=== PATIENT | female | born 1965 | race Hispanic/Latino ===

== ENCOUNTER → 2018-06-07 | Day surgery (SDC) | payer OTHER ==
--- NOTE | 2018-05-28 10:46 | Diagnostic Imaging Report ---
PROCEDURE: X-RAY CHEST, TWO VIEWS COMPARISON: None. INDICATIONS: PRE-OPERATIVE CHEST X-RAY FOR HERNIA SURGERY FINDINGS: The lungs are well-inflated. No focal airspace consolidation, pleural effusion, or pneumothorax. Cardiomediastinal contour and pulmonary vasculature are within normal limits. No acute osseous abnormality. CONCLUSION: No acute thoracic abnormality. Dictated by: James Joe M.D. on 05/28/2018 at 10:51 Electronically approved by: James Joe M.D. on 05/28/2018 at 10:51
[2018-05-28 10:55] LABS: BASOPHILS % 0.3 % (0.0-1.0); EOSINOPHILS # (AUTO) 0.1 (0.0-0.4); EOSINOPHILS % 1.2 % (0.0-6.0); HEMATOCRIT 40.8 % (34.2-44.1); LYMPHOCYTES # (AUTO) 1.5 (1.0-3.2); LYMPHOCYTES % 20.7 % (18.0-39.1); MEAN CORPUSCULAR HEMOGLOBIN 31.9 pg (28-32); MEAN CORPUSCULAR HGB CONC 34.3 g/dL (31-35); MEAN CORPUSCULAR VOLUME 92.9 fL (81-99); MONOCYTES # (AUTO) 0.6 (0.2-0.8); MONOCYTES % 7.5 % (4.4-11.3); NEUTROPHILS # (AUTO) 5.2 (2.1-6.9); NEUTROPHILS % 70.2 % (38.7-80.0); PLATELET COUNT 197 x10e3/uL (140-360); RED BLOOD COUNT 4.39 x10e6/uL (3.6-5.1); RED CELL DISTRIBUTION WIDTH 11.9 % (11.7-14.4)
[2018-05-28 11:26] LABS: ANION GAP 10.8 mmol/L (8-16); BLOOD UREA NITROGEN 18 mg/dL (7-26); BUN/CREATININE RATIO 23 (6-25); CALCIUM 9.5 mg/dL (8.4-10.2); CARBON DIOXIDE 27 mmol/L (22-29); CHLORIDE 107 mmol/L (98-107); CREATININE, SERUM 0.77 mg/dL (0.57-1.11); EST GLOMERULAR FILTRATION RATE > 60 ML/MIN (60-); GLUCOSE 101 mg/dL (74-118); POTASSIUM 3.8 mmol/L (3.5-5.1); SODIUM 141 mmol/L (136-145)
[~2018-06-07] MED LIST: ACETAMINOPHEN 1000 MG/100 ML 100 ML IV ONE; ALLEGRA ALLERG180 MG PO; BENADRYL25 M1; BUPIVACAINE 0.25%/EPI 30ML SDV INJ ONE; DESFLURANE 240 ML BTL INH ONE; DEXAMETHASONE SOD PHOS INJ 4 MG/ML VIAL ONE; FENTANYL CITRATE/PF 100MCG/2 ML INJ ONE; GLYCOPYRROLATE INJ 1MG/ 5 ML SYR ONE; LIDOCAINE HCL 2% LOCAL INJ 5 ML SDV VIAL INJ ONE; MIDAZOLAM HCL 2 MG/2 ML VIAL ONE; NEOSTIGMINE 5 MG/5ML SYR ONE; PREVACID15 M1 PO; PROPOFOL IV EMULSION 10 MG/ML 20 ML VIAL ONE; ROCURONIUM BROMIDE 10 MG/ML 5ML VIAL ONE; Synthroid PO; TURMERIC1 GM PO; XANAX0.5 MG PO
--- NOTE | 2018-06-07 10:22 | Operative Report ---
DATE OF PROCEDURE: June 07, 2018 PREOPERATIVE DIAGNOSIS: Ventral hernia. POSTOPERATIVE DIAGNOSIS: Ventral hernia. OPERATION PERFORMED: Repair of ventral hernia with Ventralex patch. ANESTHESIA: General. COMPLICATIONS: None. ESTIMATED BLOOD LOSS: Minimal. DESCRIPTION OF PROCEDURE: With the patient lying in bed in the supine position under good general anesthesia, the abdomen was prepped with Betadine solution and draped in the usual manner. A semilunar subumbilical incision was made. It was carried down through the subcutaneous tissue, and immediately hernia sac was encountered. This was from the surrounding structures and it extended next to the umbilicus and including the umbilicus. The umbilicus was then detached from the hernia sac, and the fascia was dissected all the way around. The hernia defect was then from the fascia and reduced back to the intra-abdominal cavity. A pocket was then created in the preperitoneal space without any difficulty, and Ventralex patch was then placed in the preperitoneal space and deployed without any difficulty. The defect was then closed transversely using interrupted sutures of #0 Ethibond anchoring the mesh on the way out. This gave us a satisfactory closure without any tension. The whole area was then thoroughly irrigated. Perfect hemostasis was ascertained. Fascia was then infiltrated with 0.25% Marcaine. The umbilicus was then tacked back down to the midline with 3-0 Vicryl. The subcutaneous tissue was approximated with 3-0 Vicryl and the skin was closed with subcuticular 5-0 Vicryl. Benzoin, Steri-Strips, and dressings were applied. The sponge, lap, and needle count was correct. The patient tolerated the procedure well and returned to the recovery room in stable condition. Job#: [id number]
== END | disposition home or self-care (01) ==
LOC: OR 06:08
PROVIDERS: ATTEND Surgery
DX: K43.9 Ventral hernia without obstruction or gangrene (principal); I10 Essential (primary) hypertension; M06.9 Rheumatoid arthritis, unspecified; E03.9 Hypothyroidism, unspecified; K21.9 Gastro-esophageal reflux disease without esophagitis; K58.9 Irritable bowel syndrome, unspecified; K44.9 Diaphragmatic hernia without obstruction or gangrene; K57.90 Diverticulosis of intestine, part unspecified, without perforation or abscess without bleeding; N39.0 Urinary tract infection, site not specified; Z88.0 Allergy status to penicillin; Z88.2 Allergy status to sulfonamides; Z88.6 Allergy status to analgesic agent; Z91.041 Radiographic dye allergy status; Z87.891 Personal history of nicotine dependence; Z01.810 Encounter for preprocedural cardiovascular examination; Z01.812 Encounter for preprocedural laboratory examination; Z01.818 Encounter for other preprocedural examination
CPT/HCPCS: 36415; 49560; 49568; 71046; 80048; 85025; 93005; C1781; J1100; J2001; J2250; J3490

== ENCOUNTER → 2019-01-25 | Outpatient (CLI) | payer OTHER ==
[~2019-01-25] MED LIST changes: -ACETAMINOPHEN 1000 MG/100 ML 100 ML IV ONE; -BUPIVACAINE 0.25%/EPI 30ML SDV INJ ONE; -DESFLURANE 240 ML BTL INH ONE; -DEXAMETHASONE SOD PHOS INJ 4 MG/ML VIAL ONE; -FENTANYL CITRATE/PF 100MCG/2 ML INJ ONE; -GLYCOPYRROLATE INJ 1MG/ 5 ML SYR ONE; -LIDOCAINE HCL 2% LOCAL INJ 5 ML SDV VIAL INJ ONE; -MIDAZOLAM HCL 2 MG/2 ML VIAL ONE; -NEOSTIGMINE 5 MG/5ML SYR ONE; -PROPOFOL IV EMULSION 10 MG/ML 20 ML VIAL ONE; -ROCURONIUM BROMIDE 10 MG/ML 5ML VIAL ONE
--- NOTE | 2019-01-25 15:34 | Diagnostic Imaging Report ---
EXAMINATION: PA and lateral views of the chest. COMPARISON: None CLINICAL HISTORY: Pneumonia follow-up DISCUSSION: Lungs are well-inflated. No focal consolidation, pleural effusion, or pneumothorax. Cardiomediastinal contour and pulmonary vasculature are within normal limits. No acute osseous abnormality. IMPRESSION: No acute cardiopulmonary abnormalities. No consolidative pneumonia. Signed by: Dr. James Joe M.D. on 01/25/2019 3:31 PM
== END ==
LOC: RAD 14:16
PROVIDERS: ATTEND Family Medicine
DX: Z09 Encounter for follow-up examination after completed treatment for conditions other than malignant neoplasm (principal); J18.9 Pneumonia, unspecified organism
CPT/HCPCS: 71046

== ENCOUNTER 2019-02-21 00:43 | Emergency (ER) | payer OTHER ==
[~2019-02-21] VITALS: Ht 157.5 cm; Wt 74.8 kg
--- OUTSIDE RECORDS SUMMARY | 2019-02-21 00:47 | XMS REPORT | Continuity of Care Document ---
Author Author [facility] Interface Address Unknown Phone Unavailable Problems Problem Status Onset Date Classification Date Reported Comments Source Long-term use of high-risk medication Active Problem 10/01/2017 Wiliam Dawson Vitamin D deficiency, unspecified Active Problem 10/01/2017 Wiliam Dawson Rheumatoid arthritis with rheumatoid factor Active Problem 10/01/2017 Wiliam Dawson Polyarthritis Active Diagnosis 10/01/2017 Wiliam Dawson Vitamin D deficiency Active Diagnosis 10/01/2017 Wiliam Dawson Medications Medication Details Route Status Patient Instructions Ordering Provider Order Date Source Tylenol not defined NA Active 500 once a day Paigea Wiliam Dawson Alprazolam 1 tablet NA Active 5 mg once a day Rani Wiliam Dawson Vitamin D (Ergocalciferol) 1 capsule Orally Active 18422 UNIT Orally Faklynna Wiliam Dawson Linda as directed Orally Active 60 MG Orally Faklynna Wiliam Dawson Meloxicam 1 tablet Orally Active 15 MG Orally Once a day Paigea Wiliam Dawson Prevacid 1 capsule before a meal Orally Active 15 MG Orally Once a day Faklynna Wiliam Dawson Synthroid 1 tablet on an empty stomach in the morning Orally Active 137 MCG Orally Once a day Paigea Wiliam Dawson Benadryl not defined NA Active once a day Rani Wiliam Dawson Allergies, Adverse Reactions, Alerts Substance Category Reaction Severity Reaction type Status Date Reported Comments Source sulfa Adverse Reaction rash Adverse Reaction Active 09/29/2017 Wiliam Dawson penicillin Adverse Reaction rash Adverse Reaction Active 09/29/2017 Wiliam Dawson Iodine Adverse Reaction rash Adverse Reaction Active 09/29/2017 Wiliam Dawson Hydroxychloroquine Adverse Reaction Blurry vision Adverse Reaction Active 09/29/2017 Wiliam Dawson diclofenac Adverse Reaction weakness Adverse Reaction Active 09/29/2017 Wiliam Dawson Daypro Adverse Reaction hypertension Adverse Reaction Active 09/29/2017 Wiliam Dawson Immunizations Immunization Date Given Site Status Last Updated Comments Source Results Order Name Results Value Reference Range Date Interpretation Comments Source Vital Signs Vital Sign Value Date Comments Source Systolic (mm Hg) 118 09/29/2017 Wiliam Dawson Weight 148 09/29/2017 Wiliam Dawson Height 63 09/29/2017 Wiliam Dawson Temperature Oral (F) 98.8 F 09/29/2017 Wiliam Dawson Heart Rate 80 09/29/2017 Wiliam Dawson Diastolic (mm Hg) 80 09/29/2017 Wiliam Dawson Encounters Location Location Details Encounter Type Encounter Number Reason For Visit Attending Provider ADM Date DC Date Status Source Procedures Procedure Code Date Perfomer Comments Source
--- NOTE | 2019-02-21 02:10 | Diagnostic Imaging Report ---
EXAMINATION: CHEST 2 VIEWS INDICATION: Productive cough cough, PNA 4wks ago COMPARISON: 01/25/19. FINDINGS: TUBES and LINES: None. LUNGS: Lungs are well inflated. Lungs are clear. There is no evidence of pneumonia or pulmonary edema. PLEURA: No pleural effusion or pneumothorax. HEART AND MEDIASTINUM: The cardiomediastinal silhouette is unremarkable. BONES AND SOFT TISSUES: No acute osseous lesion. Soft tissues are unremarkable. UPPER ABDOMEN: No free air under the diaphragm. IMPRESSION: No acute thoracic abnormality. No change compared to 01/25/2019. Signed by: Dr. Little Bowles M.D. on 02/21/2019 2:07 AM
[2019-02-21 02:44] VITALS: BP 139/77
== END 2019-02-21 02:40 | disposition home or self-care (01) ==
LOC: ER 00:43
DX: R06.09 Other forms of dyspnea (principal); E78.5 Hyperlipidemia, unspecified
CPT/HCPCS: 71046; 99282

== ENCOUNTER → 2019-08-01 | Outpatient (CLI) | payer OTHER ==
[~2019-08-01] MED LIST changes: +DIPHENHYDRAMINE HCL INJ 50 MG/ML VIAL ONE; +IOPAMIDOL 370 MG/ML 200 ML INFUS..BTL INJ ONE; +SODIUM CHLORIDE 0.9% 100 ML 100 ML ONE
[2019-08-01 12:06] LABS: BLOOD UREA NITROGEN 24 mg/dL (7-26); BUN/CREATININE RATIO 29 (6-25); CREATININE, SERUM 0.83 mg/dL (0.57-1.11); EST GLOMERULAR FILTRATION RATE > 60 ML/MIN (60-)
--- NOTE | 2019-08-01 14:26 | Diagnostic Imaging Report ---
EXAM: CT Angiogram Chest WITH contrast INDICATION: Chest pain COMPARISON: Chest radiograph of 02/21/2019 TECHNIQUE: Chest was scanned utilizing a multidetector helical scanner from the lung apex through the level of the adrenal glands after administration of IV contrast in arterial phase. Coronal and sagittal reformations were obtained. CT Angiogram protocol was performed. 3D reconstruction was performed and viewed on dedicated workstation. Dose modulation, iterative reconstruction, and/or weight based adjustment of the mA/kV was utilized to reduce the radiation dose to as low as reasonably achievable. IV CONTRAST: 100 mL of Omnipaque 300 RADIATION DOSE: Total DLP: 809.9 mGy*cm COMPLICATIONS: None FINDINGS: VASCULAR FINDINGS: Thoracic aorta: Aortic Annulus: 3.2 cm Sinus of Valsalva: 2.3 cm Ascending Aorta at level of PA: 2.9 cm Mid Arch: 2.6 cm Proximal Descendin.3 cm Mid Descendin.3 cm Distal Descendin.3 cm Aortic hiatus: 2.2 cm. No evidence of aortic dissection. No significant atherosclerotic changes within the thoracic aorta. The main pulmonary artery is not enlarged. No evidence of central pulmonary embolism. LINES/ TUBES: None. LUNGS AND AIRWAYS: The central airways are patent. No focal consolidation or pulmonary edema. Mild bibasilar dependent subsegmental atelectasis. No suspicious pulmonary nodules. PLEURA: No pleural effusion or pneumothorax. HEART AND MEDIASTINUM: The thyroid gland is normal. No supraclavicular, mediastinal, hilar, or axillary lymphadenopathy. The heart is not enlarged. No pericardial effusion. UPPER ABDOMEN: Limited images of the upper abdomen demonstrate no focal abnormality of the partially visualized liver, gallbladder, pancreas, adrenals, upper kidneys, or spleen. BONES/SOFT TISSUES: No acute osseous injury. No suspicious lytic or blastic lesions. No substantial degenerative changes of the visualized spine. IMPRESSION: No aortic dissection or aneurysm. Patent SVC without evidence of narrowing or extrinsic compression to correlate with clinical history/suspicion of SVC syndrome. Signed by: Charlene Epstein MD on 08/01/2019 2:23 PM
== END ==
LOC: CT 11:05
PROVIDERS: ATTEND Internal Medicine Cardiovascular Disease
DX: I87.1 Compression of vein (principal); R07.9 Chest pain, unspecified; R60.9 Edema, unspecified
CPT/HCPCS: 36415; 71275; 82565; 84520; J1200; Q9967

== ENCOUNTER 2020-05-13 17:52 | Emergency (ER) | payer OTHER ==
[~2020-05-13] VITALS: Ht 157.5 cm; Wt 74.8 kg
[~2020-05-13 17:52] MED LIST changes: -DIPHENHYDRAMINE HCL INJ 50 MG/ML VIAL ONE; -IOPAMIDOL 370 MG/ML 200 ML INFUS..BTL INJ ONE; -SODIUM CHLORIDE 0.9% 100 ML 100 ML ONE
--- NOTE | 2020-05-13 18:07 | Emergency Department Note ---
History of Present Illnes History of Present Illness Chief Complaint: Genitourinary History of Present Illness This is a 55 year old female presents with c/o burning with urination for 2 days, denies fever,n/v. Historian: Patient Arrival Mode: Car Onset (how long ago): day(s) (2) Location: none Quality: burning with urintaion Radiation: Reports non-radiation Severity: mild Onset quality: gradual Duration (how long): day(s) (2) Timing of current episode: constant Progression: unchanged Chronicity: new Context: Denies recent illness, Denies recent surgery Relieving factors: none Exacerbating factors: none Associated symptoms: Reports denies other symptoms Past Medical/Family History Physician Review I have reviewed the patient's past medical and family history. Any updates have been documented here. Past Medical History Recent Fever: No Clinical Suspicion of Infectio: Yes New/Unexplained Change in Ment: No Past Medical History: Hyperlipedemia Other Medical History: PNA Past Surgical History: , Hernia Repair Social History Smoking Cessation: Never Smoker Alcohol Use: None Any Illegal Drug Use: No Physically hurt or threatened: No Family History Family history of heart diseas: No Other family history htn Review of Systems Review of Systems Constitutional: Reports no symptoms EENTM: Reports no symptoms Cardiovascular: Reports no symptoms Respiratory: Reports no symptoms Gastrointestinal: Reports no symptoms Genitourinary: Reports as per HPI Musculoskeletal: Reports no symptoms Integumentary: Reports no symptoms Neurological: Reports no symptoms Psychological: Reports no symptoms Endocrine: Reports no symptoms Hematological/Lymphatic: Reports no symptoms Physical Exam Related Data Allergies: Coded Allergies: Penicillins (Verified Allergy, Mild, 05/13/20) Sulfa (Sulfonamide Antibiotics) (Verified Allergy, Mild, 05/13/20) iodine (Verified Allergy, Mild, 05/13/20) hydrocodone (Verified Adverse Reaction, Mild, Anxiety, jitters, 05/13/20) Triage Vital Signs Vital Signs Date Time Temp Pulse Resp B/P (MAP) Pulse Ox O2 Delivery O2 Flow Rate FiO2 05/13/20 17:55 99.0 94 17 178/94 96 Room Air Vital signs reviewed: Yes Physical Exam CONSTITUTIONAL Constitutional: Present well-developed, Present well-nourished HENT HENT: Present normocephalic, Present atraumatic, Present oropharynx clear/moist, Present nose normal HENT L/R: Present left ext ear normal, Present right ext ear normal EYES Eyes: Reports PERRL, Reports conjunctivae normal NECK Neck: Present ROM normal PULMONARY Pulmonary: Present effort normal, Present breath sounds normal CARDIOVASCULAR Cardiovascular: Present regular rhythm, Present heart sounds normal, Present capillary refill normal, Present normal rate GASTROINTESTINAL Abdominal: Present soft, Present nontender, Present bowel sounds normal GENITOURINARY Genitourinary: Present exam deferred SKIN Skin: Present warm, Present dry MUSCULOSKELETAL Musculoskeletal: Present ROM normal NEUROLOGICAL Neurological: Present alert, Present oriented x 3, Present no gross motor or sensory deficits PSYCHOLOGICAL Psychological: Present mood/affect normal, Present judgement normal Results Laboratory Laboratory Laboratory Tests Test 05/13/20 17:59 Urine Color Yellow (YELLOW) Urine Clarity Hazy (CLEAR) Urine pH 5.5 (5 - 7) Urine Specific Anabel 1.015 (1.010-1.025) Urine Protein Negative (NEGATIVE) Urine Glucose (UA) Negative (NEGATIVE) Urine Ketones Negative (NEGATIVE) Urine Blood Small (NEGATIVE) Urine Nitrite Negative (NEGATIVE) Urine Bilirubin Negative (NEGATIVE) Urine Urobilinogen 0.2 mg/dL (0.2 - 1) Urine Leukocyte Esterase Negative (NEGATIVE) Urine RBC 0-5 /HPF (0-5) Urine WBC 0-5 /HPF (0-5) Urine Epithelial Cells Few /LPF (NONE) Urine Bacteria Few /HPF (NONE) Lab results reviewed: Yes Assessment & Plan Medical Decision Making MDM pt with burning with urination ua, urine culture ordered to eval for uti PT DISCHARGED WITH LEVAQUIN 500 MG PO DAILY FOR 10 DAYS. Assessment & Plan Final Impression: (1) Dysuria Depart Disposition: HOME, SELF-CARE Last Vital Signs Date Time Temp Pulse Resp B/P (MAP) Pulse Ox O2 Delivery O2 Flow Rate FiO2 05/13/20 17:55 99.0 94 17 178/94 96 Room Air Home Meds Reported Medications Diphenhydramine Hcl (BENADRYL) 25 Mg Capsule, 50 06/07/18 Turmeric (TURMERIC) 1 Gm Powder, PO DAILY 06/03/18 Fexofenadine Hcl (SOFIA ALLERGY) 180 Mg Tablet, 180 MG PO DAILY 06/03/18 Alprazolam (XANAX) 0.5 Mg Tablet, 0.5 MG PO TID 06/03/18 [Synthroid] No Conflict Check, 137 MCG PO DAILY 06/03/18 Lansoprazole (PREVACID) 15 Mg Tab.rap., 15 MG PO TID 06/03/18 YESSENIA RITTER MD May 13, 2020 18:07
[2020-05-13 18:28] LABS: BILIRUBIN,URINE NEGATIVE (NEGATIVE); CLARITY,URINE HAZY (CLEAR); COLOR,URINE YELLOW (YELLOW); KETONES,URINE NEGATIVE (NEGATIVE); LEUKOCYTE ESTERASE ,URINE NEGATIVE (NEGATIVE); NITRITE,URINE NEGATIVE (NEGATIVE); PROTEIN,URINE DIPSTICK NEGATIVE (NEGATIVE); URINE UROBILINOGEN 0.2 mg/dL (0.2 - 1); WBC,URINE (MAN) 0-5 /HPF (0-5)
[2020-05-13 18:29] LABS: BACTERIA,URINE FEW /HPF; EPITHELIAL CELLS,URINE FEW /LPF; RBC,URINE 0-5 /HPF (0-5)
== END 2020-05-13 19:43 | disposition home or self-care (01) ==
LOC: ER 17:59
DX: R30.0 Dysuria (principal); E78.5 Hyperlipidemia, unspecified; Z87.01 Personal history of pneumonia (recurrent)
CPT/HCPCS: 81001; 87086; 99282

== ENCOUNTER → 2020-06-25 | Outpatient (CLI) | payer OTHER | LOC: RAD 09:46 | PROVIDERS: ATTEND Family Medicine | DX: M79.601 Pain in right arm (principal) | CPT/HCPCS: 93971 ==

== ENCOUNTER 2020-07-10 10:06 | Emergency (ER) | payer OTHER ==
[~2020-07-10] VITALS: Ht 157.5 cm; Wt 74.8 kg
[2020-07-10] MEDS ORDERED: KETOROLAC TROMETHAMINE 30 MG/ML VIAL IV STA (10:19)
[2020-07-10] MEDS ORDERED: SODIUM CHLORIDE 0.9% 1000ML 1,000 ML IV STA (10:19)
[2020-07-10] MEDS ORDERED: ONDANSETRON HCL INJ 2MG/ML 2ML 2 MG/ML VIAL IV STA (10:19)
--- OUTSIDE RECORDS SUMMARY | 2020-07-10 10:36 | XMS REPORT | Continuity of Care Document ---
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 [employer] Unavailable Un available Problems Problem Status Onset Date Classification Date Reported Comments Source Long-term use of high-risk medication Active Problem 07/2020 Wiliam Dawson Vitamin D deficiency, unspecified Active Problem 07/2020 Wiliam Dawson Rheumatoid arthritis with rheumatoid factor Active Diagnosis 02/03/2020 Wiliam Dawson Polyarthritis Active Diagnosis 02/03/2020 Wiliam Dawson Vitamin D deficiency Active Problem 02/03/2020 Wiliam Dawson Rheumatoid factor positive Act benny Diagnosis 0 11/12/2019 Wiliam Dawson Medications Medication Details Route Status Patient Instructions Ordering Provider Order Date Source Alendronate Sodium 1 tablet 30 minutes before the first food, beverage or medicine of the day with plain water Orally Active 70 MG Orally once a week [place] 11/14/2019 Wiliam Dawson Prednisone Taper 3 tablets for 5 days, 2 tablets for 5 days and then 1 tablet for 5 days Orally Active 5mg Orally once a day [place] 09/27/2019 Wiliam Dawson Tylenol not defined NA Active 500 once a day Surya Dawson Alprazolam 1 tablet NA Active 5 mg once a day Surya Dawson Vitamin D (Ergocalciferol) 1 c apsule Orally Active 17867 UNIT Orally Hany Dawson Linda as directed Orally Active 60 MG Orally Once a day [place] Dawson Meloxicam 1 tablet Orally Active 15 MG Orally Once a day Leach Bishop Dawson Prevacid 1 capsule before a me al Orally Active 15 MG Orally Once a day [place] Dawson Synthroid 1 tablet on an empty stomach in the morning Orally Active 137 MCG Orally Once a day Ambjose martin Dawson Benadryl not defined NA Active once a day Fakoya Bishop Dawson Benadryl 2 capsule Orally Active 25 MG Orally once a day [place] Dawson Atorvastatin Calcium 1 tablet Orally Active 10 MG Orally Once a day [place] Dawson Tumeric 1 capsule Orally Active 400 MG Orally Once a da y Surya Dawson Amlodipine Besylate 1 tablet Orally Active 5 MG Orally Once a day [place] Dawson Collagen 2 tablets Orally Active 500 MG Orally once a da y Leach Bishop Dawson Allergies, Adverse Reactions, Alerts Substance Category Reaction Severity Reaction type Status Date Reported Comments Source sulfa Adverse Reaction rash Adverse Reaction Active 10/24/2019 Wiliam Dawson penicillin Adverse Reaction rash Adverse Reaction Active 10/24/2019 Wiliam Dawson Iodine Adverse Reaction rash Adverse Reaction Active 10/24/2019 Wiliam Dawson Hydroxychloroquine Adverse Neli ction Blurry vision Adverse Reaction Active 10/24/2019 Wiliam Dawson diclofenac Adverse Reaction weakness Adverse Reaction Active 10/24/2019 Wiliam Dawson Daypro Adverse Reaction hypertension Adverse Reaction Active 10/24/2019 Wiliam Dawson Immunizations No Data Provided for This Section Results No Data Provided for This Section Pathology Reports No Data Provided for This Section Diagnostic Reports No Data Provided for This Section Consultation Notes No Data Provided for This Section Discharge Summaries No Data Provided for This Section History and Physicals No Data Provided for This Section Vital Signs Vital Sign Value Date Comments Source Weight 172.4 10/24/2019 Wiliam Gloverer Height 63 1 Wiliam Dawson Temperature Oral (F) 99.6 F 10/24/2019 Wiliam Dawson Heart Rate 80 10/24/2019 Wiliam Dawson Diastolic (mm Hg) 80 10/24/2019 Wiliam Dawson Systolic (mm Hg) 122 10/24/2019 Wiliam Gloverer Weight 169.4 09/27/2019 Wiliam Dawson Height 63 1 11/28/2018 Wiliam Dawson Temperature Oral (F) 98.9 F 09/27/2019 Wiliam Dawson Heart Rate 84 09/27/2019 Wiliam Dawson Diastolic (mm Hg) 90 09/27/2019 Wiliam Dawson Systolic (mm Hg) 136 09/27/2019 Wiliam Dawson Systolic (mm Hg) 118 09/29/2017 Wiliam Dawson Weight 148 09/29/2017 Wiliam Dawson Height 63 1 11/30/2016 Wiliam Dawson Temperature Oral (F) 98.8 F 09/29/2017 Wiliam Dawson Heart Rate 80 09/29/2017 Wiliam Dawson Diastolic (mm Hg) 80 09/29/2017 Wiliam Dawson Encounters No Data Provided for This Section Procedures No Data Provided for This Section Assessment and Plan No Data Provided for This Section Plan of Care No Data Provided for This Section Social History No Data Provided for This Section Family History No Data Provided for This Section Advance Directives No Data Provided for This Section Functional Status No Data Provided for This Section
--- OUTSIDE RECORDS SUMMARY | 2020-07-10 10:36 | XMS REPORT | Continuity of Care Document ---
Author Author [facility] t Organization [facility] Address [address] [place] [address] Phone Unavailable Care Team Providers Care Body And Frame Technician Name Role Phone CAROLE BLUNT PCP Blu ORLANDO Attphys Unavailable Mike RITTER Attphys Unavailable CAROLE BLUNT Attphys Unavailable Mike PEREA Attphyashley Unavailable Payers Payer Name Policy Type Policy Number Effective Date Expiration Date Ashley Mathew Pos [id number] 2009 00:00:00 [facility] Problems Condition Name Condition Details Condition Category Status Onset Date Resolution Date Last Treatment Date Treating Clinician Comments Source Dysuria Problem Active [facility] Long-term use of high-risk medication Long-term use of high-risk medication Active Problem 02/03/2020 Wilaim Dawson Problem Active 2020-02-03 02:56:22 [place] Vitamin D deficiency, unspecified Vitamin D deficiency, unspecified Active Problem 02/03/2020 Wiliam Dawson Problem Active 2020-02-03 02:56:22 [place] Rheumatoid arthritis with rheumatoid factor Rheumatoid arthritis with rheumatoid factor Active Diagnosis 02/03/2020 Wiliam Dawson Diagnosis Active 2020-02-03 02:56:22 [facility] Polyarthritis Poly arthritis Active Diagnosis 02/03/2020 Wiliam Dawson Diagnosis Active 2020-02-03 02:56:22 [facility] Rheumatoid factor positive Rhe umatoid factor positive Active Diagnosis 11/12/2019 Wiliam Dawson Diagnosis Active 2019-11-12 03:47:31 [facility] Allergies, Adverse Reactions, Alerts Allergy Name Allergy Type Status Severity Reaction(s) Onset Date Inacti ve Date Treating Clinician Comments Source Penicillin Allergy to substance Active Mild 2020-05-13 00:00:00 [facility] Sulfa (Sulfonamide Antibiotics) Allergy to substance Active Mild 2020-05-13 00:00:00 [facility] Iodine Allergy to substance Active Mild 2020-05-13 00:00:00 [facility] Hydrocodone Propensity to adverse reactions Active Mild radha Gill 2020-05-13 00:00:00 [facility] Iodinated Contrast Media DA Active ID 2020-03-26 00:00:00 [facility] Penicillins DA Active ID 2020-03-26 00:00:00 [facility] Sulfa (Sulfonamide Antibiotics) DA Active ID 2020-03-26 00 :00:00 [facility] Iodinated Contrast Media DA Active ID 2020-03-22 00:00:00 [facility] Penicillins DA Active ID 2020-03-22 00:00:00 [facility] Sulfa (Sulfonamide Antibiotics) DA Active ID 2020-03-22 00 :00:00 [facility] Iodine Iodine Active rash 2019-10-24 00:00:00 [facility] Daypro Daypro Active hypertension 2019-10-24 00:00:00 [facility] Iodinated Contrast Media DA Active ID 2019-05-16 00:00:00 [facility] Penicillins DA Active ID 2019-01-23 00:00:00 [facility] Sulfa (Sulfonamide Antibiotics) DA Active ID 2019-01-23 00 :00:00 [facility] Penicillins DA Active ID 2018-08-30 00:00:00 [facility] Sulfa (Sulfonamide Antibiotics) DA Active ID 2018-08-30 00 :00:00 [facility] Penicillins DA Active ID 2011-08-20 00:00:00 [facility] Sulfa (Sulfonamide Antibiotics) DA Active ID 2011-08-20 00 :00:00 [facility] Social History Social Habit Start Date Stop Date Quantity Comments Source Sex Assigned At 1965 00:00:00 1965 00:00:00 Female [facility] Medications Ordered Medication Name Filled Medication Name Start Date Stop Da te Current Medication? Ordering Clinician Indication Dosage Frequency Signature (SIG) Comments Components Source Tylenol 2020-02-03 02:56:22 Yes Ray London not defined [facility] Alprazolam 2020-02-03 02:56:22 Yes Ray London 1 tablet [facility] Linda 2020-02-03 02:56:22 Yes Ray London as d irected [facility] Prevacid 2020-02-03 02:56:22 Yes Ray London 1 capsule before a meal [facility] Synthroid 2020-02-03 02:56:22 Yes Ray London 1 tablet on an empty stomach in the morning [facility] Benadryl 2020-02-03 02:56:22 Yes Ray London 2 c apsule [facility] Atorvastatin Calcium 2020-02-03 02:56:22 Yes Ray London 1 tablet [facility] Tumeric 2020-02-03 02:56:22 Yes Ray London 1 ca psule [facility] Amlodipine Besylate 2020-02-03 02:56:22 Yes Ray London 1 tablet [facility] Alendronate Sodium 2019-11-14 00:00:00 Yes Ray London 1 tablet 30 minutes before the first food, beverage or medicine of the day with plain water [facility] Vitamin D (Ergocalciferol) 2019-11-12 03:47:31 Yes Seng Leach 1 capsule [facility] Meloxicam 2019-11-12 03:47:31 Yes Kandis Leach 1 tablet [facility] Collagen 2019-11-12 03:47:31 Yes Kandis Leach 2 tablets [facility] Prednisone Taper 2019-09-27 00:00:00 Yes Kandis Leach 3 tablets for 5 days, 2 tablets for 5 days and then 1 tablet for 5 days [facility] Benadryl 2017-10-01 03:46:49 Yes Latifmago Fakmeagan no t defined [facility] Alprazolam (Xanax) 0.5 Mg TABLET Alprazolam (Xanax) 0.5 Mg TABLET Yes .5 Three Times A Day [facility] Diphenhydramine Hcl (Benadryl) 25 Mg CAPSULE Diphenhyd ramine Hcl (Benadryl) 25 Mg CAPSULE Yes [address] [facility] Fexofenadine Hcl (Linda Allergy) 180 Mg TABLET Fexof enadine Hcl (Linda Allergy) 180 Mg TABLET Yes 180 Daily [facility] Lansoprazole (Prevacid) 15 Mg TAB.RAP Lansoprazole (Prevacid) 15 Mg TAB.RAP. Yes 15 Three Times A Day [facility] Synthroid Synthroid Yes 137 Daily [facility] Turmeric Turmeric Yes Daily [facility] Vital Signs Vital Name Observation Time Observation Value Comments Source Weight 2020-05-13 17:55:00 165 [lb_av] [facility] BMI (Body Mass Index) 2020-05-13 17:55:00 30.2 kg/m2 [facility] 2019-10[facility]24 [facility] 2019-10-24 19:15:00 [facility] Sergio Temperature Oral (F) 2019-10-24 19:15:00 99.6 F [facility] Sergio Heart Rate 2019-10-24 19:15:00 [facility] Diastolic (mm Hg) 2019-10-24 19:15:00 [facility] Systolic (mm Hg) 2019-10-24 19:15:00 [facility] Weight 2019-09-27 15:45:00 [facility] [place] Height 2019-09-27 15:45:00 [facility] Temperature Oral (F) 2019-09-27 15:45:00 98.9 F [facility] Heart Rate 2019-09-27 15:45:00 [facility] Diastolic (mm Hg) 2019-09-27 15:45:00 [facility] Systolic (mm Hg) 2019-09-27 15:45:00 [facility] Systolic (mm Hg) 2017-09-29 17:30:00 Fredy maldonado [facility] Weight 2017-09-29 17:30:00 [facility] Height 2017-09-29 17:30:00 [facility] Temperature Oral (F) 2017-09-29 17:30:00 98.8 F [facility] Heart Rate 2017-09-29 17:30:00 [facility] Diastolic (mm Hg) 2017-09-29 17:30:00 [facility] Procedures Procedure Date / Time Performed Performing Clinician Lance malin CT angiography of chest 2019-08-01 00:00:00 [facility] Plan of Care Planned Activity Planned Date Details Comments Source Instructions Dysuria - Female [facility] Instructions Urinary Tract Infection - Women [facility] Encounters Start Date/Time End Date/Time Encounter Type Admission Type [facility] Care Department Encounter ID Source 2020-05-13 17:59:00 2020-05-13 19:43:00 Departed Emergency Room [facility] [id number] [facility] 2019-12-20 15:56:00 2019-12-20 15:56:00 Outpatient Champ Dawson MD [place] [id number] Wiliam Dawson MD 2019-11-14 12:31:00 2019-11-14 12:31:00 Outpatient MD HELGA Stanley MD [place] [id number] CHELSEA Dawson MD 2019-10-25 08:06:00 2019-10-25 08:06:00 Outpatient MD HELGA Stanley MD [place] [id number] CHELSEA Dawson MD 2019-10-24 14:15:00 2019-10-24 14:15:00 Outpatient Champ Dawson MD PA [id number] CHELSEA Dawson MD 2019-09-27 10:57:00 2019-09-27 10:57:00 Outpatient MD HELGA Stanley MD [place] [id number] CHELSEA Dawson MD 2019-09-27 09:45:00 2019-09-27 09:45:00 Outpatient Champ PARTIDA [id number] Wiliam Dawson MD 2019-08-01 11:05:00 2019-08-01 11:05:00 Registered Clinic 3 JESÚS ORLANDO [facility] [id number] I [facility] 2019-02-21 00:43:00 2019-02-21 02:40:00 Departed Emergency Room 1 YESSENIA RITTER [facility] [id number] [facility] 2019-01-25 14:16:00 2019-01-25 14:16:00 Registered Clinic 3 CAROLE BLUNT [facility] [id number] [facility] 2018-06-07 06:08:00 2018-06-07 06:08:00 Registered Surgical Day Car e KATHERINE QUINTERO [facility] [id number] [facility] 2017-09-29 11:30:00 2017-09-29 11:30:00 Outpatient Champ PARTIDA [id number] Wiliam Dawson MD Results Test Description Test Time Test Comments Results Result Comments Source - CTA CHEST FOR PE 2020-06-15 20:43:00 Name: MELISSA STEPHENS [facility] : 1965 Age/S: 55 / F [address] Unit #: [id number] Loc: [place] [address] Phys: Christiano Peacock MD Acct: [id number] Dis Date: Status: ADM IN PHONE #: [phone] Exam Date: 06/15/20202008 FAX #: [phone] Reason: DVT in LUE, arm swelling EXAMS: CPT CODE: [id number] [place] [id number] REASON FOR EXAM: DVT in LUE, arm swelling EXAM ORDER DATE: 06/15/2020 6:54 PM Ordering: Christiano Peacock MD Attending:John Villa MD Location: COMPARISON: PROCEDURE: - CTA CHEST FOR PE FINDINGS: CT images of the chest were obtained with IV contrast. Reconstructed sagittal and coronal images of the chest were provided for interpretation. Dose modulation, iterative reconstruction, and/or weight based adjustment of the MA/KV was utilized to reduce the radiation dose to as low as reasonably achievable. Intravenous contrast: 100cc of Omnipaque 370. The heart size is within normal limits. No evidence of pericardial effusion The thoracic aorta is unremarkable. No evidence of dissection or aneurysmal dilatation. No filling defect seen within the main or lobar pulmonary arteries to suggest pulmonary embolus. No evidence of mediastinal or hilar adenopathy. The lungs are clear. No evidence of pleural effusion IMPRESSION: Suboptimal examination due to poor opacification of the pulmonary arteries shows no gross evidence of DVT at 2042 Reported and signed by: Remi Kaye M.D. CC: Christiano Peacock MD; Carole Blunt MD Technologist:Adolph Amado, RT(R)(CT); February CTDI: DLP: Trnscb Date/Time: 06/15/2020 (2042) t.SDR.VTL Orig Print D/T: S: 06/15/2020 (2045) PAGE 1 Signed Report URINALYSIS COMPLETE 2020-06-15 16:09:00 Test Item UA COLOR (test code = COLU) COLORLESS YELLOW A UA APPEARANCE (test code = APPU) CLEAR CLEAR UA GLUCOSE DIPSTICK (test code = DGLUU) NEGATIVE mg/dL NEGATIVE UA BILIRUBIN DIPSTICK (test code = BILU) NEGATIVE mg/dL NEGATIVE UA KETONE DIPSTICK (test code = KETU) NEGATIVE mg/dL NEGATIVE UA SPECIFIC GRAVITY (test code = SGU) 1.008 1.001-1.035 UA BLOOD DIPSTICK (test code = JON) 0.06 mg/dL (1+) mg/dL NEGATIVE A UA PH DIPSTICK (test code = KAYLEE) 5.0 5.0-8.0 UA PROTEIN DIPSTICK (test code = PROU) NEGATIVE mg/dL NEGATIVE UA UROBILINIOGEN DIPSTICK (test code = URO) Normal mg/dL NEGATIVE UA NITRITE DIPSTICK (test code = JUD) NEGATIVE NEGATIVE UA LEUKOCYTE ESTERASE W REFLEX (test code = LEUUR) NEGATIVE Daniel/uL NEGATIVE UA WBC (test code = WBCU) NONE SEEN per HPF 0-5 UA RBC (test code = RBCU) NONE SEEN #/HPF 0-5 UA EPITHELIAL CELLS (test code = EPIU) FEW per HPF FEW UA BACTERIA (test code = BACU) NONE SEEN #/HPF NONE UA MUCUS (test code = MUCU) FEW #/LPF FEW Urine Source? Clean [id number] 15:57:00* Test Item Value Reference Range Interpretation Comments TROPONIN-I (test code = TROPI) <0.015 ng/mL 0-0.045 N BASIC METABOLIC [id number] 15:57:00* Test Item Value Reference Range Interpretation Comments SODIUM (test code = NA) 144 mmol/L 136-145 N POTASSIUM (test code = K) 3.6 mmol/L 3.5-5.1 N CHLORIDE (test code = CL) 110.0 mmol/L 98-107 H CARBON DIOXIDE (test code = CO2) 25.0 mmol/L 21-32 N ANION GAP (test code = GAP) 12.6 10-20 N GLUCOSE (test code = GLU) 126 mg/dL 74-106 H BLOOD UREA NITROGEN (test code = BUN) 19 mg/dL 7-18 H GLOMERULAR FILTRATION RATE (test code = GFR) > 60 mL/min >=60 Estimated GFR by using Modified MDRD formula.Chronic kidney disease is defined as either kidney damageor GFR <60 mL/min/1.73 m2 for >3 months. CREATININE (test code = CREAT) 0.90 mg/dL 0.55-1.02 N Note change in reference range due to change in reagent. BUN/CREATININE RATIO (test code = BUN/CREA) 21.4 10-20 H CALCIUM (test code = CA) 8.7 mg/dL 8.5-10.1 N HCG SERUM [id number] 15:57:00* Test Item Value Reference Range Interpretation Comments HCG SERUM BETA (test code = HCG) 3.0 mIU/mL 0-3 N INTERPRETATION:B-HCG LEVELS <5 SHOULD BE CONSIDERED "NEGATIVE." *WHEN BODERLINE RESULTS ARE ENCOUNTERED,PATIENT SAMPLESSHOULD BE REDRAWN 48 HOURS. 0-1 WEEKS AFTER CONCEPTION 5-50 MIU/ML1-2 WEEKS AFTER CONCEPTION 50-500 MIU/ML2-3 WEEKS AFTER CONCEPTION 100 -5,000 MIU/ML3-4 WEEKS AFTER CONCEPTION 500-10,000 MIU/ML4-5 WEEKS AFTER CONCEPTION 1000 -50,000 MIU/ML5-6 WEEKS AFTER CONCEPTION 10,000-100,000 MIU/ML6-8 WEEKS AFTER CONCEPTION 15,000- 200,000 MIU/ML2-3 MONTHS AFTER CONCEPTION 10,000-100,000 MIU/ML PROTHROMBIN [id number] 15:51:00* Test Item Value Reference Range Interpretation Comments PROTHROMBIN TIME PATIENT (test code = PTP) 11.5 seconds 9.0-14.0 N INTERNATIONAL NORMAL RATIO (test code = INR) 1.0 0.8-1.2 N The therapeutic range for oral anticoagulant therapy formost indications is an international normalized ratio (INR)of between 2.0 and 3.0. The recommended therapeutic INRrange for various clinical situations is listed below: Clinical Situation INR range Pulmonary e mbolism treatment (2.0-3.0)Venous thrombosis treatmentVenous thrombosis prophylaxis (high risk surgery)Prevention of systemic embolism from: Acute myocardial infarction Valvular heart disease Atrial fibrillation Mechanical prosthetic heart valves (2.5-3.5) IS PATIENT ON ANTICOAGULANTS? NTHROMBOPLASTIN TIME [id number] 15:51:00* Test Item Value Reference Range Interpretation Comments THROMBOPLASTIN TIME PARTIAL (test code = PTT) 29.5 seconds 23.0-37. 0 N IS PATIENT ON ANTICOAGULANTS? NBASIC METABOLIC [id number] 15:47:00* Test Item Value Reference Range Interpretation Comments SODIUM (test code = NA) 144 mmol/L 136-145 N POTASSIUM (test code = K) 3.6 mmol/L 3.5-5.1 N CHLORIDE (test code = CL) 110.0 mmol/L 98-107 H CARBON DIOXIDE (test code = CO2) mmol/L 21-32 ANION GAP (test code = GAP) 10-20 GLUCOSE (test code = GLU) mg/dL 74-106 BLOOD UREA NITROGEN (test code = BUN) mg/dL 7-18 GLOMERULAR FILTRATION RATE (test code = GFR) mL/min >=60 CREATININE (test code = CREAT) mg/dL 0.55-1.02 BUN/CREATININE RATIO (test code = BUN/CREA) 10-20 CALCIUM (test code = CA) mg/dL 8.5-10.1 HCG SERUM [id number] 15:47:00* Test Item Value Reference Range Interpretation Comments HCG SERUM BETA (test code = HCG) mIU/mL 0-3 CBC W/AUTO [id number] 15:40:00* Test Item Value Reference Range Interpretation Comments WHITE BLOOD CELL (test code = WBC) 8.5 K/mm3 4.5-12.5 N RED BLOOD CELL (test code = RBC) 4.42 mill/mm3 3.7-5.2 N HEMOGLOBIN (test code = HGB) 13.8 gram/dL 11.5-15.5 N HEMATOCRIT (test code = HCT) 42.2 % 36.0-46.0 N MEAN CELL VOLUME (test code = MCV) 95.5 fL 80-98 N MEAN CELL HGB (test code = MCH) 31.2 picogram 27.0-33.0 N MEAN CELL HGB CONCETRATION (test code = MCHC) 32.7 gram/dL 33.0-36. 0 L RED CELL DISTRIBUTION WIDTH (test code = RDW) 12.7 % 11.6-16. 2 N RED CELL DISTRIBUTION WIDTH SD (test code = RDW-SD) 44.2 fL 37 .0-51.0 N PLATELET COUNT (test code = PLT) 196 K/mm3 150-450 N MEAN PLATELET VOLUME (test code = MPV) 10.7 fL 6.7-11.0 N NEUTROPHIL % (test code = NT%) 74.0 % 39.0-69.0 H IMMATURE GRANULOCYTE % (test code = IG%) 0.4 % 0.0-5.0 N LYMPHOCYTE % (test code = LY%) 17.5 % 25.0-55.0 L MONOCYTE % (test code = MO%) 6.8 % 0.0-10.0 N EOSINOPHIL % (test code = EO%) 0.9 % 0.0-5.0 N BASOPHIL % (test code = BA%) 0.4 % 0.0-1.0 N NUCLEATED RBC % (test code = NRBC%) 0.0 % 0-0 N NEUTROPHIL # (test code = NT#) 6.27 K/mm3 1.8-7.7 N IMMATURE GRANULOCYTE # (test code = IG#) 0.03 x10 3/uL 0-0.03 N LYMPHOCYTE # (test code = LY#) 1.48 K/mm3 1.0-5.0 N MONOCYTE # (test code = MO#) 0.58 K/mm3 0-0.8 N EOSINOPHIL # (test code = EO#) 0.08 K/mm3 0.0-0.5 N BASOPHIL # (test code = BA#) 0.03 K/mm3 0.0-0.2 N NUCLEATED RBC # (test code = NRBC#) 0.00 K/mm3 0.0-0.1 N CBC W/AUTO [id number] 15:39:00* Test Item Value Reference Range Interpretation Comments WHITE BLOOD CELL (test code = WBC) K/mm3 4.5-12.5 RED BLOOD CELL (test code = RBC) mill/mm3 3.7-5.2 HEMOGLOBIN (test code = HGB) 13.8 gram/dL 11.5-15.5 N HEMATOCRIT (test code = HCT) 42.2 % 36.0-46.0 N MEAN CELL VOLUME (test code = MCV) fL 80-98 MEAN CELL HGB (test code = MCH) picogram 27.0-33.0 MEAN CELL HGB CONCETRATION (test code = MCHC) gram/dL 33.0-36. 0 RED CELL DISTRIBUTION WIDTH (test code = RDW) % 11.6-16. 2 RED CELL DISTRIBUTION WIDTH SD (test code = RDW-SD) fL 37 .0-51.0 PLATELET COUNT (test code = PLT) 196 K/mm3 150-450 N MEAN PLATELET VOLUME (test code = MPV) fL 6.7-11.0 NEUTROPHIL % (test code = NT%) % 39.0-69.0 IMMATURE GRANULOCYTE % (test code = IG%) % 0.0-5.0 LYMPHOCYTE % (test code = LY%) % 25.0-55.0 MONOCYTE % (test code = MO%) % 0.0-10.0 EOSINOPHIL % (test code = EO%) % 0.0-5.0 BASOPHIL % (test code = BA%) % 0.0-1.0 NEUTROPHIL # (test code = NT#) K/mm3 1.8-7.7 LYMPHOCYTE # (test code = LY#) K/mm3 1.0-5.0 MONOCYTE # (test code = MO#) K/mm3 0-0.8 EOSINOPHIL # (test code = EO#) K/mm3 0.0-0.5 BASOPHIL # (test code = BA#) K/mm3 0.0-0.2 - XR CHEST 1 [id number] 15:13:00 FAX: Christiano Peacock MD [phone] [place]: St: PRE FAX: Carole Haney MD [phone] Name: MELISSA PEREA [facility] : 1965 Age/S: 55/F [address] [facility] Unit #: [id number] Loc: [place] [address] Phys: Christiano Peacock MD Acct: [id number] Dis Date: Status: PRE ER PHONE #: [phone] Exam Date: 06/15/2020 1501 FAX #: [phone] Reason: cough EXAMS: CPT CODE: [id number] XR CHEST 1 V [id number] REASON FOR EXAM: cough Exam Order Date: 06/15/2020 2:44 PM Ordering M.DAshlyn: Christiano Peacock MD PROCEDURE: - XR CHEST 1 V COMPARISON: Chest x-ray 05/16/2020 FINDINGS: Lines/Tubes: None The lungs are clear. There is no pleural effusion or pneumothorax. Pulmonary vascularity is within normal limits. Cardiomediastinal silhouette and mediastinal contours are unchanged when accounting for differences in technique. Musculoskeletal structures and visualized portions of the upper abdomen are also unchanged. IMPRESSION: No acute cardiopulmonary process. Location: [facility] Electro nically Signed by Armando Mello M.D. on 06/15/2020 at 1513 Reported and signed by: Armando Mello M.D. CC: Christiano Peacock MD; Carole Blunt MD Technologist: Elisha Aranda, RT(R); Effie colorado RT(R) [facility] Date/Time/By: 06/15/2020 (2653) : By: [email or web address] PAGE 1 Signed Report - XR HUMERUS 2 + V [id number] 15:13:00 FAX: Christiano Peacock MD [phone] [place]: St: PRE FAX: Carole Haney MD [phone] Name: MELISSA PEREA [facility] : 1965 Age/S: 55/F [address] [facility] Unit #: [id number] Loc: [place] [address] Phys: Christiano Peacock MD Acct: [id number] Dis Date: Status: PRE ER PHONE #: [phone] Exam Date: 06/15/2020 1501 FAX #: [phone] Reason: arm apin EXAMS: CPT CODE: [id number] XR HUMERUS 2 + [place] [id number] REASON FOR EXAM: arm apin EXAM ORDER DATE: 06/15/2020 2:44 PM Ordering: Christiano Peacock MD Attending:Christiano Peacock MD Location:[facility] PROCEDURE: - XR HUMERUS 2 + V LT FINDINGS: 2 views of the left and right humerus w ere obtained. The osseous structures are unremarkable in size and shape. The joint spaces are maintained. No evidence of fracture. The acro mioclavicular joint is intact IMPRESSION: Unremarkable left and right humerus Electronically Signed by Armando Mello M.D. on 0 at 1513 Reported and signed by: Armando Mello M.D. CC: Christiano Peacock MD; Carole Blunt MD Techno logist: Elisha Aranda RT(R); Effie Negron RT(R) Trnscrd Date/Time /By: 06/15/2020 (151) : By: [email or web address] Orig Print D/T: S: 06/15/2020 ( 5337) PAGE 1 Signed Report Urine color [id number] 17:59:00* Test Item Value Reference Range Interpretation Comments Urine Color (test code = 5778-6) YELLOW YELLOW [facility] [id number] 17:59:00* Test Item Value Reference Range Interpretation Comments Urine Clarity (test code = 96029-3) HAZY CLEAR [facility] Urine by Test strip 2020-05-13 17:59:00* Test Item Value Reference Range Interpretation Comments Urine Specific [place] (test code = 5811-5) 1.015 1.010-1.02 5 [facility] pH measurement by automated test [id number] 17:59:00* Test Item Value Reference Range Interpretation Comments Urine pH (test code = 96425-4) 5.5 5-7 [facility] leukocyte esterase detection by [id number] 17:59:00* Test Item Value Reference Range Interpretation Comments Urine Leukocyte Esterase (test code = 5799-2) NEGATIVE NEGATIVE [facility] nitrite [id number] 17:59:00* Test Item Value Reference Range Interpretation Comments Urine Nitrite (test code = 04372-6) NEGATIVE NEGATIVE [facility] protein measurement by test strip (mass/volume)2020-05-13 17:59:00* Test Item Value Reference Range Interpretation Comments Urine Protein (test code = 5804-0) NEGATIVE NEGATIVE [facility] glucose [id number] 17:59:00* Test Item Value Reference Range Interpretation Comments Urine Glucose (UA) (test code = 2349-9) NEGATIVE NEGATIVE [facility] ketones detection by automated test [id number] 17:59:00* Test Item Value Reference Range Interpretation Comments Urine Ketones (test code = 32303-2) NEGATIVE NEGATIVE [facility] urobilinogen measurement by test strip (mass/volume)2020-05-13 17:59:00* Test Item Value Reference Range Interpretation Comments Urine Urobilinogen (test code = 72518-1) 0.2 0.2-1 [facility] total bilirubin measurement (mass/volume)2020-05-13 17:59:00* Test Item Value Reference Range Interpretation Comments Urine Bilirubin (test code = 1978-6) NEGATIVE NEGATIVE [facility] erythrocytes [id number] 17:59:00* Test Item Value Reference Range Interpretation Comments Urine Blood (test code = 09361-2) SMALL NEGATIVE [facility] urine sediment leukocyte count by microscopy (number/high power field)2020-05-13 17:59:00* Test Item Value Reference Range Interpretation Comments Urine WBC (test code = 5821-4) 0-5 0-5 [facility] SouthErythrocytes detection in urine sediment by light [id number] 17:59:00* Test Item Value Reference Range Interpretation Comments Urine RBC (test code = 04172-0) 0-5 0-5 [facility] SouthBacteria detection in urine sediment by light [id number] 17:59:00* Test Item Value Reference Range Interpretation Comments Urine Bacteria (test code = 30851-4) FEW NONE [facility] SouthEpithelial cells detection in urine sediment by light [id number] 17:59:00* Test Item Value Reference Range Interpretation Comments Urine Epithelial Cells (test code = 34973-6) FEW NONE [facility] SouthLACTIC [id number] 12:45:00* Test Item Value Reference Range Interpretation Comments LACTIC ACID (test code = LACT) 1.2 mmol/L 0.4-1.9 N BASIC METABOLIC [id number] 12:45:00* Test Item Value Reference Range Interpretation Comments SODIUM (test code = NA) 143 mmol/L 136-145 N POTASSIUM (test code = K) 3.9 mmol/L 3.5-5.1 N CHLORIDE (test code = CL) 108.0 mmol/L 98-107 H CARBON DIOXIDE (test code = CO2) 28.0 mmol/L 21-32 N ANION GAP (test code = GAP) 10.9 10-20 N GLUCOSE (test code = GLU) 99 mg/dL 74-106 N BLOOD UREA NITROGEN (test code = BUN) 18 mg/dL 7-18 N GLOMERULAR FILTRATION RATE (test code = GFR) > 60 mL/min >=60 Estimated GFR by using Modified MDRD formula.Chronic kidney disease is defined as either kidney damageor GFR <60 mL/min/1.73 m2 for >3 months. CREATININE (test code = CREAT) 0.90 mg/dL 0.55-1.02 N Note change in reference range due to change in reagent. BUN/CREATININE RATIO (test code = BUN/CREA) 19.8 10-20 N CALCIUM (test code = CA) 9.1 mg/dL 8.5-10.1 N HEPATIC FUNCTION [id number] 12:45:00* Test Item Value Reference Range Interpretation Comments TOTAL PROTEIN (test code = PROT) 7.9 gram/dL 6.4-8.2 N ALBUMIN (test code = ALB) 4.0 g/dL 3.4-5.0 N GLOBULIN (test code = GLOB) 3.9 gram/dL 2.7-4.2 N ALBUMIN/GLOBULIN RATIO (test code = A/G) 1.0 0.75-1.50 N BILIRUBIN TOTAL (test code = BILT) 0.30 mg/dL 0.0-1.0 N BILIRUBIN DIRECT (test code = BILD) 0.11 mg/dL 0.0-0.20 N SGOT/AST (test code = AST) 16 IUnit/L 15-37 N SGPT/ALT (test code = ALT) 32 IUnit/L 12-78 N ALKALINE PHOSPHATASE TOTAL (test code = ALKP) 134 IUnit/L 45-117 H Note change in reference range due to change in reagent. CBC W/AUTO [id number] 12:38:00* Test Item Value Reference Range Interpretation Comments WHITE BLOOD CELL (test code = WBC) 7.9 K/mm3 4.5-12.5 N RED BLOOD CELL (test code = RBC) 4.60 mill/mm3 3.7-5.2 N HEMOGLOBIN (test code = HGB) 14.1 gram/dL 11.5-15.5 N HEMATOCRIT (test code = HCT) 43.6 % 36.0-46.0 N MEAN CELL VOLUME (test code = MCV) 94.8 fL 80-98 N MEAN CELL HGB (test code = MCH) 30.7 picogram 27.0-33.0 N MEAN CELL HGB CONCETRATION (test code = MCHC) 32.3 gram/dL 33.0-36. 0 L RED CELL DISTRIBUTION WIDTH (test code = RDW) 12.7 % 11.6-16. 2 N RED CELL DISTRIBUTION WIDTH SD (test code = RDW-SD) 43.7 fL 37 .0-51.0 N PLATELET COUNT (test code = PLT) 223 K/mm3 150-450 N MEAN PLATELET VOLUME (test code = MPV) 11.6 fL 6.7-11.0 H NEUTROPHIL % (test code = NT%) 75.0 % 39.0-69.0 H IMMATURE GRANULOCYTE % (test code = IG%) 0.3 % 0.0-5.0 N LYMPHOCYTE % (test code = LY%) 17.1 % 25.0-55.0 L MONOCYTE % (test code = MO%) 6.5 % 0.0-10.0 N EOSINOPHIL % (test code = EO%) 0.8 % 0.0-5.0 N BASOPHIL % (test code = BA%) 0.3 % 0.0-1.0 N NUCLEATED RBC % (test code = NRBC%) 0.0 % 0-0 N NEUTROPHIL # (test code = NT#) 5.90 K/mm3 1.8-7.7 N IMMATURE GRANULOCYTE # (test code = IG#) 0.02 x10 3/uL 0-0.03 N LYMPHOCYTE # (test code = LY#) 1.34 K/mm3 1.0-5.0 N MONOCYTE # (test code = MO#) 0.51 K/mm3 0-0.8 N EOSINOPHIL # (test code = EO#) 0.06 K/mm3 0.0-0.5 N BASOPHIL # (test code = BA#) 0.02 K/mm3 0.0-0.2 N NUCLEATED RBC # (test code = NRBC#) 0.00 K/mm3 0.0-0.1 N BASIC METABOLIC [id number] 12:38:00* Test Item Value Reference Range Interpretation Comments SODIUM (test code = NA) 143 mmol/L 136-145 N POTASSIUM (test code = K) 3.9 mmol/L 3.5-5.1 N CHLORIDE (test code = CL) 108.0 mmol/L 98-107 H CARBON DIOXIDE (test code = CO2) mmol/L 21-32 ANION GAP (test code = GAP) 10-20 GLUCOSE (test code = GLU) mg/dL 74-106 BLOOD UREA NITROGEN (test code = BUN) mg/dL 7-18 GLOMERULAR FILTRATION RATE (test code = GFR) mL/min >=60 CREATININE (test code = CREAT) mg/dL 0.55-1.02 BUN/CREATININE RATIO (test code = BUN/CREA) 10-20 CALCIUM (test code = CA) mg/dL 8.5-10.1 HEPATIC FUNCTION [id number] 12:38:00* Test Item Value Reference Range Interpretation Comments TOTAL PROTEIN (test code = PROT) gram/dL 6.4-8.2 ALBUMIN (test code = ALB) g/dL 3.4-5.0 GLOBULIN (test code = GLOB) gram/dL 2.7-4.2 ALBUMIN/GLOBULIN RATIO (test code = A/G) 0.75-1.50 BILIRUBIN TOTAL (test code = BILT) mg/dL 0.0-1.0 BILIRUBIN DIRECT (test code = BILD) mg/dL 0.0-0.20 SGOT/AST (test code = AST) IUnit/L 15-37 SGPT/ALT (test code = ALT) IUnit/L 12-78 ALKALINE PHOSPHATASE TOTAL (test code = ALKP) IUnit/L 45-117 CBC W/AUTO [id number] 12:36:00* Test Item Value Reference Range Interpretation Comments WHITE BLOOD CELL (test code = WBC) K/mm3 4.5-12.5 RED BLOOD CELL (test code = RBC) mill/mm3 3.7-5.2 HEMOGLOBIN (test code = HGB) 14.1 gram/dL 11.5-15.5 N HEMATOCRIT (test code = HCT) 43.6 % 36.0-46.0 N MEAN CELL VOLUME (test code = MCV) fL 80-98 MEAN CELL HGB (test code = MCH) picogram 27.0-33.0 MEAN CELL HGB CONCETRATION (test code = MCHC) gram/dL 33.0-36. 0 RED CELL DISTRIBUTION WIDTH (test code = RDW) % 11.6-16. 2 RED CELL DISTRIBUTION WIDTH SD (test code = RDW-SD) fL 37 .0-51.0 PLATELET COUNT (test code = PLT) K/mm3 150-450 MEAN PLATELET VOLUME (test code = MPV) fL 6.7-11.0 NEUTROPHIL % (test code = NT%) % 39.0-69.0 IMMATURE GRANULOCYTE % (test code = IG%) % 0.0-5.0 LYMPHOCYTE % (test code = LY%) % 25.0-55.0 MONOCYTE % (test code = MO%) % 0.0-10.0 EOSINOPHIL % (test code = EO%) % 0.0-5.0 BASOPHIL % (test code = BA%) % 0.0-1.0 NEUTROPHIL # (test code = NT#) K/mm3 1.8-7.7 LYMPHOCYTE # (test code = LY#) K/mm3 1.0-5.0 MONOCYTE # (test code = MO#) K/mm3 0-0.8 EOSINOPHIL # (test code = EO#) K/mm3 0.0-0.5 BASOPHIL # (test code = BA#) K/mm3 0.0-0.2 URINALYSIS [id number] 11:50:00* Test Item Value Reference Range Interpretation Comments UA COLOR (test code = COLU) YELLOW YELLOW UA APPEARANCE (test code = APPU) CLEAR CLEAR UA GLUCOSE DIPSTICK (test code = DGLUU) NEGATIVE mg/dL NEGATIVE UA BILIRUBIN DIPSTICK (test code = BILU) NEGATIVE NEGATIVE UA KETONE DIPSTICK (test code = KETU) NEGATIVE mg/dL NEGATIVE UA SPECIFIC GRAVITY (test code = SGU) <=1.005 1.001-1.035 UA BLOOD DIPSTICK (test code = JON) 1+ (Small) NEGATIVE A UA PH DIPSTICK (test code = KAYLEE) 5.5 5.0-8.0 UA PROTEIN DIPSTICK (test code = PROU) NEGATIVE mg/dL Neg-15 UA UROBILINIOGEN DIPSTICK (test code = URO) 0.2 mg/dL 0.0-0.2 UA NITRITE DIPSTICK (test code = JUD) NEGATIVE NEGATIVE UA LEUKOCYTE ESTERASE W REFLEX (test code = LEUUR) NEGATIVE NEG ATIVE UA WBC (test code = WBCU) 0-5 per HPF 0-5 UA RBC (test code = RBCU) NONE SEEN per HPF 0-5 UA EPITHELIAL CELLS (test code = EPIU) Few (2-5/hpf) per HPF Few UA BACTERIA (test code = BACU) NONE SEEN per HPF NONE Urine Source? Clean CatchURINALYSIS [id number] 11:29:00* Test Item Value Reference Range Interpretation Comments UA COLOR (test code = COLU) YELLOW YELLOW UA APPEARANCE (test code = APPU) CLEAR CLEAR UA GLUCOSE DIPSTICK (test code = DGLUU) NEGATIVE mg/dL NEGATIVE UA BILIRUBIN DIPSTICK (test code = BILU) NEGATIVE NEGATIVE UA KETONE DIPSTICK (test code = KETU) NEGATIVE mg/dL NEGATIVE UA SPECIFIC GRAVITY (test code = SGU) <=1.005 1.001-1.035 UA BLOOD DIPSTICK (test code = JON) 1+ (Small) NEGATIVE A UA PH DIPSTICK (test code = KAYLEE) 5.5 5.0-8.0 UA PROTEIN DIPSTICK (test code = PROU) NEGATIVE mg/dL Neg-15 UA UROBILINIOGEN DIPSTICK (test code = URO) 0.2 mg/dL 0.0-0.2 UA NITRITE DIPSTICK (test code = JUD) NEGATIVE NEGATIVE UA LEUKOCYTE ESTERASE W REFLEX (test code = LEUUR) NEGATIVE NEG ATIVE UA WBC (test code = WBCU) per HPF 0-5 UA RBC (test code = RBCU) per HPF 0-5 UA EPITHELIAL CELLS (test code = EPIU) per HPF Few UA BACTERIA (test code = BACU) per HPF NONE Urine Source? Clean Catch- CT ABD PELVIS W/O [id number] 19:54:00 Name: MELISSA PEREA [facility] : 1965 Age/S: 54 / F [address] Unit #: [id number] Loc: TEJINDER Mc [address] Phys: Oanh Giraldo [employer] Acct: [id number] Di s Date: Status: REG ER PHONE #: [phone] Exam Date: 03/22/20201944 FAX #: [phone] Reason: DIFFUSE ABD PAIN EXAMS: CPT CODE: [id number] CT ABD PELVIS W/O CONT [id number] REASON FOR EXAM: DIFFUSE ABD PAIN EXAM ORDER DATE: 03/22/2020 6:33 PM Ordering: Loc Giraldo NP Attending:Gisele Deluna MD Locati on:[facility] PROCEDURE: - CT ABD PELVIS W/O CONT COMPARIS ON: FINDINGS: CT images of the abdomen and pelvis were obtained wi thout IV and without oral contrast at 5mm. Dose modulation, iterative reconstruction, and/or weight based adjustment of the MA/KV was utilized to reduce the radiation dose to as low as reasonably achievable. The liver, spleen, pancreas are grossly within normal limits. T he gall bladder is unremarkable by CT. The kidneys are within norm al limits. The urinary bladder is unremarkable. The colon, small bowel, and stomach are within normal limits without evidence of obst ruction. The appendix was not assessable due to barium artifact within th e colon No evidence of free air or free fluid. The uterus is unrem arkable. IMPRESSION: Limited assessment of the pelvis due to res idual barium contrast causing significant streaking artifact. No eviden ce evidence of acute abnormality at 195 Reported and signed by: Remi Kaye M.D. CC: Loc Giraldo NP; Gisele Deluna MD echnologist:Shanice Byers RT(R) CTDI: DLP: Trnscb Date /Time: 03/22/2020 (1953) [email or web address] Orig Print D/T: S: (1956) PAGE 1 Signed Report BASIC METABOLIC [id number] 19:24:00* Test Item Value Reference Range Interpretation Comments SODIUM (test code = NA) 142 mmol/L 136-145 N POTASSIUM (test code = K) 3.4 mmol/L 3.5-5.1 L CHLORIDE (test code = CL) 106.0 mmol/L 98-107 N CARBON DIOXIDE (test code = CO2) 27.0 mmol/L 21-32 N ANION GAP (test code = GAP) 12.4 10-20 N GLUCOSE (test code = GLU) 114 mg/dL 74-106 H BLOOD UREA NITROGEN (test code = BUN) 20 mg/dL 7-18 H GLOMERULAR FILTRATION RATE (test code = GFR) 58 mL/min >=60 Estimated GFR by using Modified MDRD formula.Chronic kidney disease is defined as either kidney damageor GFR <60 mL/min/1.73 m2 for >3 months. CREATININE (test code = CREAT) 1.00 mg/dL 0.55-1.02 N Note change in reference range due to change in reagent. BUN/CREATININE RATIO (test code = BUN/CREA) 20.0 10-20 N CALCIUM (test code = CA) 9.0 mg/dL 8.5-10.1 N HEPATIC FUNCTION [id number] 19:24:00* Test Item Value Reference Range Interpretation Comments TOTAL PROTEIN (test code = PROT) 7.4 gram/dL 6.4-8.2 N ALBUMIN (test code = ALB) 3.7 g/dL 3.4-5.0 N GLOBULIN (test code = GLOB) 3.7 gram/dL 2.7-4.2 N ALBUMIN/GLOBULIN RATIO (test code = A/G) 1.0 0.75-1.50 N BILIRUBIN TOTAL (test code = BILT) 0.30 mg/dL 0.0-1.0 N BILIRUBIN DIRECT (test code = BILD) 0.11 mg/dL 0.0-0.20 N SGOT/AST (test code = AST) 11 IUnit/L 15-37 L SGPT/ALT (test code = ALT) 25 IUnit/L 12-78 N ALKALINE PHOSPHATASE TOTAL (test code = ALKP) 126 IUnit/L 45-117 H Note change in reference range due to change in reagent. [id number] 19:24:00* Test Item Value Reference Range Interpretation Comments LIPASE (test code = LIP) 89 U/L 73.0-393.0 N HCG SERUM [id number] 19:24:00* Test Item Value Reference Range Interpretation Comments HCG SERUM QUAL (test code = HCGQL) NEGATIVE NEGATIVE This HCGQL test is NOT applicable for MALE patients.Check with nurse about probable order error.If Tumor Marker Test needed, nurse should order test "HCGTU"(Test #550.24075) [id number] 19:24:00* Test Item Value Reference Range Interpretation Comments TROPONIN-I (test code = TROPI) <0.015 ng/mL 0-0.045 N BASIC METABOLIC [id number] 19:13:00* Test Item Value Reference Range Interpretation Comments SODIUM (test code = NA) 142 mmol/L 136-145 N POTASSIUM (test code = K) 3.4 mmol/L 3.5-5.1 L CHLORIDE (test code = CL) 106.0 mmol/L 98-107 N CARBON DIOXIDE (test code = CO2) mmol/L 21-32 ANION GAP (test code = GAP) 10-20 GLUCOSE (test code = GLU) mg/dL 74-106 BLOOD UREA NITROGEN (test code = BUN) mg/dL 7-18 GLOMERULAR FILTRATION RATE (test code = GFR) mL/min >=60 CREATININE (test code = CREAT) mg/dL 0.55-1.02 BUN/CREATININE RATIO (test code = BUN/CREA) 10-20 CALCIUM (test code = CA) mg/dL 8.5-10.1 HEPATIC FUNCTION [id number] 19:13:00* Test Item Value Reference Range Interpretation Comments TOTAL PROTEIN (test code = PROT) gram/dL 6.4-8.2 ALBUMIN (test code = ALB) g/dL 3.4-5.0 GLOBULIN (test code = GLOB) gram/dL 2.7-4.2 ALBUMIN/GLOBULIN RATIO (test code = A/G) 0.75-1.50 BILIRUBIN TOTAL (test code = BILT) mg/dL 0.0-1.0 BILIRUBIN DIRECT (test code = BILD) mg/dL 0.0-0.20 SGOT/AST (test code = AST) IUnit/L 15-37 SGPT/ALT (test code = ALT) IUnit/L 12-78 ALKALINE PHOSPHATASE TOTAL (test code = ALKP) IUnit/L 45-117 [id number] 19:13:00* Test Item Value Reference Range Interpretation Comments LIPASE (test code = LIP) U/L 73.0-393.0 HCG SERUM [id number] 19:13:00* Test Item Value Reference Range Interpretation Comments HCG SERUM QUAL (test code = HCGQL) NEGATIVE NEGATIVE This HCGQL test is NOT applicable for MALE patients.Check with nurse about probable order error.If Tumor Marker Test needed, nurse should order test "HCGTU"(Test #550.84671) [id number] 19:13:00* Test Item Value Reference Range Interpretation Comments TROPONIN-I (test code = TROPI) ng/mL 0-0.045 BASIC METABOLIC [id number] 19:12:00* Test Item Value Reference Range Interpretation Comments SODIUM (test code = NA) 142 mmol/L 136-145 N POTASSIUM (test code = K) 3.4 mmol/L 3.5-5.1 L CHLORIDE (test code = CL) 106.0 mmol/L 98-107 N CARBON DIOXIDE (test code = CO2) mmol/L 21-32 ANION GAP (test code = GAP) 10-20 GLUCOSE (test code = GLU) mg/dL 74-106 BLOOD UREA NITROGEN (test code = BUN) mg/dL 7-18 GLOMERULAR FILTRATION RATE (test code = GFR) mL/min >=60 CREATININE (test code = CREAT) mg/dL 0.55-1.02 BUN/CREATININE RATIO (test code = BUN/CREA) 10-20 CALCIUM (test code = CA) mg/dL 8.5-10.1 HEPATIC FUNCTION [id number] 19:12:00* Test Item Value Reference Range Interpretation Comments TOTAL PROTEIN (test code = PROT) gram/dL 6.4-8.2 ALBUMIN (test code = ALB) g/dL 3.4-5.0 GLOBULIN (test code = GLOB) gram/dL 2.7-4.2 ALBUMIN/GLOBULIN RATIO (test code = A/G) 0.75-1.50 BILIRUBIN TOTAL (test code = BILT) mg/dL 0.0-1.0 BILIRUBIN DIRECT (test code = BILD) mg/dL 0.0-0.20 SGOT/AST (test code = AST) IUnit/L 15-37 SGPT/ALT (test code = ALT) IUnit/L 12-78 ALKALINE PHOSPHATASE TOTAL (test code = ALKP) IUnit/L 45-117 [id number] 19:12:00* Test Item Value Reference Range Interpretation Comments LIPASE (test code = LIP) U/L 73.0-393.0 HCG SERUM [id number] 19:12:00* Test Item Value Reference Range Interpretation Comments HCG SERUM QUAL (test code = HCGQL) NEGATIVE [id number] 19:12:00* Test Item Value Reference Range Interpretation Comments TROPONIN-I (test code = TROPI) ng/mL 0-0.045 CBC W/O [id number] 19:01:00* Test Item Value Reference Range Interpretation Comments WHITE BLOOD CELL (test code = WBC) 10.2 K/mm3 4.5-12.5 N RED BLOOD CELL (test code = RBC) 4.22 mill/mm3 3.7-5.2 N HEMOGLOBIN (test code = HGB) 13.0 gram/dL 11.5-15.5 N HEMATOCRIT (test code = HCT) 39.7 % 36.0-46.0 N MEAN CELL VOLUME (test code = MCV) 94.1 fL 80-98 N MEAN CELL HGB (test code = MCH) 30.8 picogram 27.0-33.0 N MEAN CELL HGB CONCETRATION (test code = MCHC) 32.7 gram/dL 33.0-36. 0 L RED CELL DISTRIBUTION WIDTH (test code = RDW) 12.8 % 11.6-16. 2 N PLATELET COUNT (test code = PLT) 220 K/mm3 150-450 N MEAN PLATELET VOLUME (test code = MPV) 11.1 fL 6.7-11.0 H CBC W/O [id number] 18:59:00* Test Item Value Reference Range Interpretation Comments WHITE BLOOD CELL (test code = WBC) K/mm3 4.5-12.5 RED BLOOD CELL (test code = RBC) mill/mm3 3.7-5.2 HEMOGLOBIN (test code = HGB) 13.0 gram/dL 11.5-15.5 N HEMATOCRIT (test code = HCT) 39.7 % 36.0-46.0 N MEAN CELL VOLUME (test code = MCV) fL 80-98 MEAN CELL HGB (test code = MCH) picogram 27.0-33.0 MEAN CELL HGB CONCETRATION (test code = MCHC) gram/dL 33.0-36. 0 RED CELL DISTRIBUTION WIDTH (test code = RDW) % 11.6-16. 2 PLATELET COUNT (test code = PLT) K/mm3 150-450 MEAN PLATELET VOLUME (test code = MPV) fL 6.7-11.0 URINALYSIS [id number] 18:49:00* Test Item Value Reference Range Interpretation Comments UA COLOR (test code = COLU) COLORLESS YELLOW A UA APPEARANCE (test code = APPU) CLEAR CLEAR UA GLUCOSE DIPSTICK (test code = DGLUU) NEGATIVE mg/dL NEGATIVE UA BILIRUBIN DIPSTICK (test code = BILU) NEGATIVE mg/dL NEGATIVE UA KETONE DIPSTICK (test code = KETU) NEGATIVE mg/dL NEGATIVE UA SPECIFIC GRAVITY (test code = SGU) 1.009 1.001-1.035 UA BLOOD DIPSTICK (test code = JON) 0.5 mg/dL (2+) mg/dL NEGATIVE A UA PH DIPSTICK (test code = KAYLEE) 5.5 5.0-8.0 UA PROTEIN DIPSTICK (test code = PROU) NEGATIVE mg/dL NEGATIVE UA UROBILINIOGEN DIPSTICK (test code = URO) Normal mg/dL NEGATIVE UA NITRITE DIPSTICK (test code = JUD) NEGATIVE NEGATIVE UA LEUKOCYTE ESTERASE W REFLEX (test code = LEUUR) 75 Daniel/uL (1+) Daniel/uL NEGATIVE A UA WBC (test code = WBCU) 11-20 per HPF 0-5 A UA RBC (test code = RBCU) 51-100 #/HPF 0-5 UA EPITHELIAL CELLS (test code = EPIU) FEW per HPF FEW UA BACTERIA (test code = BACU) FEW #/HPF NONE A Urine Source? Clean CatchCTA [id number] 14:14:00 [facility] [address] [place] [address] Patient Name: MELISSA PEREA MR #: [id number] : 1965 Age/Sex: 54/F Req #: [id number] Adm Physician: Ordered by: JESÚS ORLANDO MD Report #: [id number] Location: CT Room/Bed: Procedure: [id number] CT/CTA CHEST Exam Date: 08/01/19 Exam Jose Carlos e: [id number] REPORT STATUS: Signed EX AM: CT Angiogram Chest WITH contrast INDICATION: Chest pain COMPARISO N: Chest radiograph of 02/21/2019 TECHNIQUE: Chest was scanned utilizing a multidetector helical scanner from the lung apex through the level of the adr enal glands after administration of IV contrast in arterial phase. Coronal and sagittal reformations were obtained. CT Angiogram protocol was performed. 3D reconstruction was performed and viewed on dedicated workstation. Dose modulat ion, iterative reconstruction, and/or weight based adjustment of the mA/kV was utilized to reduce the radiation dose to as low as reasonably achievable. IV CONTRAST: 100 mL of Omnipaque 300 RADIATION DOSE: Total DLP: 809.9 mGy*cm COMPLICATIONS: None FINDINGS: VAS CULAR FINDINGS: Thoracic aorta: Aortic Annulus: 3.2 cm Sinus of Valsalva : 2.3 cm Ascending Aorta at level of PA: 2.9 cm Mid Arch: 2.6 cm Proximal Descendin.3 cm Mid Descendin.3 cm Distal Descendin.3 cm Aort ic hiatus: 2.2 cm. No evidence of aortic dissection. No significant athero sclerotic changes within the thoracic aorta. The main pulmonary artery is not enlarged. No evidence of central pulmonary embolism. LINES/ TUBES: None. LUNGS AND AIRWAYS: The central airways are patent. No focal consolidation or pulmonary edema. Mild bibasilar dependent subsegmental atelectasis. No kraus spicious pulmonary nodules. PLEURA: No pleural effusion or pneumothorax. HEART AND MEDIASTINUM: The thyroid gland is normal. No supraclavicular, me diastinal, hilar, or axillary lymphadenopathy. The heart is not enlarged. No p ericardial effusion. UPPER ABDOMEN: Limited images of the upper abdomen de monstrate no focal abnormality of the partially visualized liver, gallbladder, pancreas, adrenals, upper kidneys, or spleen. BONES/SOFT TISSUES: No acu te osseous injury. No suspicious lytic or blastic lesions. No substantial dege nerative changes of the visualized spine. IMPRESSION: No aortic dissecti on or aneurysm. Patent SVC without evidence of narrowing or extrinsic compr ession to correlate with clinical history/suspicion of SVC syndrome. Signed by: Tyree Hoyt MD on 08/01/2019 2:23 PM Dictated By: TYREE HOYT MD 142 Transcribed By: CECILIO on 08/01/19 142 COPY TO: JESÚS ORLANDO MD Serum or plasma urea nitrogen measurement (mass/volume)2019-08-01 11:35:00* Test Item Value Reference Range Interpretation Comments Blood Urea Nitrogen (test code = 3094-0) 24 7-26 [facility] plasma creatinine measurement (mass/volume)2019-08-01 11:35:00* Test Item Value Reference Range Interpretation Comments Creatinine (test code = 2160-0) 0.83 0.57-1.11 [facility] or plasma urea nitrogen/creatinine mass [id number] 11:35:00* Test Item Value Reference Range Interpretation Comments BUN/Creatinine Ratio (test code = 3097-3) 29 6-25 [facility] SouthEstimated glomerular filtration rate (GFR) [id number] 11:35:00* Test Item Value Reference Range Interpretation Comments Estimat Glomerular Filtration Rate (test code = 388007741) > 60 >60 Ranges were taken from the National Kidney Disease Education Program and the [employer] [employer] literature.Reference ranges:60 or greater: Qiskpg17-61 ( for 3 consecutive months): Chronic kidney disease 15 or less: Kidney failureCHI [facility]lingen Medical CenterB-TYPE NATRIURETIC [id number] 02:13:00 * Test Item Value Reference Range Interpretation Comments B-TYPE NATRIURETIC PEPTIDE (test code = BNP) 6.4 pgram/mL 0-100 N CBC W/O [id number] 01:00:00* Test Item Value Reference Range Interpretation Comments WHITE BLOOD CELL (test code = WBC) K/mm3 4.5-12.5 RED BLOOD CELL (test code = RBC) mill/mm3 3.7-5.2 HEMOGLOBIN (test code = HGB) 13.7 gram/dL 11.5-15.5 N HEMATOCRIT (test code = HCT) 41.4 % 36.0-46.0 N MEAN CELL VOLUME (test code = MCV) fL 80-98 MEAN CELL HGB (test code = MCH) picogram 27.0-33.0 MEAN CELL HGB CONCETRATION (test code = MCHC) gram/dL 33.0-36. 0 RED CELL DISTRIBUTION WIDTH (test code = RDW) % 11.6-16. 2 PLATELET COUNT (test code = PLT) K/mm3 150-450 MEAN PLATELET VOLUME (test code = MPV) fL 6.7-11.0 CBC W/O [id number] 01:00:00* Test Item Value Reference Range Interpretation Comments WHITE BLOOD CELL (test code = WBC) 8.7 K/mm3 4.5-12.5 N RED BLOOD CELL (test code = RBC) 4.43 mill/mm3 3.7-5.2 N HEMOGLOBIN (test code = HGB) 13.7 gram/dL 11.5-15.5 N HEMATOCRIT (test code = HCT) 41.4 % 36.0-46.0 N MEAN CELL VOLUME (test code = MCV) 93.5 fL 80-98 N MEAN CELL HGB (test code = MCH) 30.9 picogram 27.0-33.0 N MEAN CELL HGB CONCETRATION (test code = MCHC) 33.1 gram/dL 33.0-36. 0 N RED CELL DISTRIBUTION WIDTH (test code = RDW) 12.4 % 11.6-16. 2 N PLATELET COUNT (test code = PLT) 208 K/mm3 150-450 N MEAN PLATELET VOLUME (test code = MPV) 12.1 fL 6.7-11.0 H BASIC METABOLIC [id number] 00:58:00* Test Item Value Reference Range Interpretation Comments SODIUM (test code = NA) 142 mmol/L 136-145 N POTASSIUM (test code = K) 3.6 mmol/L 3.5-5.1 N CHLORIDE (test code = CL) 107.0 mmol/L 98-107 N CARBON DIOXIDE (test code = CO2) 30.0 mmol/L 21-32 N ANION GAP (test code = GAP) 8.6 10-20 L GLUCOSE (test code = GLU) 102 mg/dL 74-106 N BLOOD UREA NITROGEN (test code = BUN) 23 mg/dL 7-18 H GLOMERULAR FILTRATION RATE (test code = GFR) > 60 mL/min >=60 Estimated GFR by using Modified MDRD formula.Chronic kidney disease is defined as either kidney damageor GFR <60 mL/min/1.73 m2 for >3 months. CREATININE (test code = CREAT) 0.90 mg/dL 0.55-1.02 N Note change in reference range due to change in reagent. BUN/CREATININE RATIO (test code = BUN/CREA) 24.6 10-20 H CALCIUM (test code = CA) 9.5 mg/dL 8.5-10.1 N [id number] 00:58:00* Test Item Value Reference Range Interpretation Comments TROPONIN-I (test code = TROPI) <0.015 ng/mL 0-0.045 N BASIC METABOLIC [id number] 00:54:00* Test Item Value Reference Range Interpretation Comments SODIUM (test code = NA) 142 mmol/L 136-145 N POTASSIUM (test code = K) 3.6 mmol/L 3.5-5.1 N CHLORIDE (test code = CL) 107.0 mmol/L 98-107 N CARBON DIOXIDE (test code = CO2) mmol/L 21-32 ANION GAP (test code = GAP) 10-20 GLUCOSE (test code = GLU) mg/dL 74-106 BLOOD UREA NITROGEN (test code = BUN) mg/dL 7-18 GLOMERULAR FILTRATION RATE (test code = GFR) mL/min >=60 CREATININE (test code = CREAT) mg/dL 0.55-1.02 BUN/CREATININE RATIO (test code = BUN/CREA) 10-20 CALCIUM (test code = CA) mg/dL 8.5-10.1 [id number] 00:54:00* Test Item Value Reference Range Interpretation Comments TROPONIN-I (test code = TROPI) ng/mL 0-0.045 URINALYSIS [id number] 00:50:00* Test Item Value Reference Range Interpretation Comments UA COLOR (test code = COLU) Light-Yellow YELLOW UA APPEARANCE (test code = APPU) CLEAR CLEAR UA GLUCOSE DIPSTICK (test code = DGLUU) NEGATIVE mg/dL NEGATIVE UA BILIRUBIN DIPSTICK (test code = BILU) NEGATIVE mg/dL NEGATIVE UA KETONE DIPSTICK (test code = KETU) NEGATIVE mg/dL NEGATIVE UA SPECIFIC GRAVITY (test code = SGU) 1.022 1.001-1.035 UA BLOOD DIPSTICK (test code = JON) 0.1 mg/dL (1+) mg/dL NEGATIVE A UA PH DIPSTICK (test code = KAYLEE) 5.5 5.0-8.0 UA PROTEIN DIPSTICK (test code = PROU) NEGATIVE mg/dL NEGATIVE UA UROBILINIOGEN DIPSTICK (test code = URO) Normal mg/dL NEGATIVE UA NITRITE DIPSTICK (test code = JUD) NEGATIVE NEGATIVE UA LEUKOCYTE ESTERASE W REFLEX (test code = LEUUR) NEGATIVE Daniel/uL NEGATIVE UA WBC (test code = WBCU) 0-5 per HPF 0-5 UA RBC (test code = RBCU) 0-2 #/HPF 0-5 UA EPITHELIAL CELLS (test code = EPIU) FEW per HPF FEW UA BACTERIA (test code = BACU) NONE SEEN #/HPF NONE UA MUCUS (test code = MUCU) FEW #/LPF FEW Urine Source? Clean CatchURINALYSIS [id number] 00:49:00* Test Item Value Reference Range Interpretation Comments UA COLOR (test code = COLU) Light-Yellow YELLOW UA APPEARANCE (test code = APPU) CLEAR CLEAR UA GLUCOSE DIPSTICK (test code = DGLUU) NEGATIVE mg/dL NEGATIVE UA BILIRUBIN DIPSTICK (test code = BILU) NEGATIVE mg/dL NEGATIVE UA KETONE DIPSTICK (test code = KETU) NEGATIVE mg/dL NEGATIVE UA SPECIFIC GRAVITY (test code = SGU) 1.022 1.001-1.035 UA BLOOD DIPSTICK (test code = JON) 0.1 mg/dL (1+) mg/dL NEGATIVE A UA PH DIPSTICK (test code = KAYLEE) 5.5 5.0-8.0 UA PROTEIN DIPSTICK (test code = PROU) NEGATIVE mg/dL NEGATIVE UA UROBILINIOGEN DIPSTICK (test code = URO) Normal mg/dL NEGATIVE UA NITRITE DIPSTICK (test code = JUD) NEGATIVE NEGATIVE UA LEUKOCYTE ESTERASE W REFLEX (test code = LEUUR) NEGATIVE Daniel/uL NEGATIVE UA WBC (test code = WBCU) per HPF 0-5 UA RBC (test code = RBCU) per HPF 0-5 UA EPITHELIAL CELLS (test code = EPIU) per HPF Few UA BACTERIA (test code = BACU) per HPF NONE Urine Source? Clean Catch- XR CHEST 1 [id number] 00:37:00 FAX: Donal Albrecht [phone] [place]: B St: REG Name: MELISSA STEPHENS [facility] : [birth year] Age/S: 54/F [address] [facility] Unit #: [id number] Loc: [place] [address] Phys: Donal Gibbs Acct: [id number] Dis Date: Status: REG ER PHONE #: [phone] Exam Date: 05/16/2019 0033 FAX #: [phone] Reason: Shortness of Breath EXAMS: CPT CODE: [id number] XR CHEST 1 V 99387 EXAM: - XR CHEST 1 V Location code:C3 HISTORY: Shortness of Breath COMP ARISON: 03/10/2018 FINDINGS: Single AP view of the ch est is provided. Heart size and vascularity are within normal limits. The lungs are clear of focal consolidation. No effusion, pneumothorax, or acute osseous abnormality. IMPRESSION: 1. N o radiographic evidence of acute cardiopulmonary process. Elodia ctronically Signed by Shell Peterson on 05/17/2019 at 0037 Reported and signed by: Luis Peterson M.D. CC: Donal Gibbs MD Technologist: Jessica Huitron Trnnerd Date/Time/By: 05/17/2019 (0037) : By: [email or web address] Orig Print D/T: S: 05/17/2019 (0041) PAGE 1 Signed Report CHEST 2 VIEWS 2019-02-21 02:05:00 [place] [address] Patient Name: MELISSA PEREA MR #: [id number] : 1965 Age/Sex: 53/F Req #: [id number] Adm Physician: Ordered by: YESSENIA RITTER MD Report #: [id number] Location: ER Room/Bed: Procedure: DX/CHEST 2 VIEWS Exam Date: 02/21/19 Exam Ti me: 0135 REPORT STATUS: Signed E XAMINATION: CHEST 2 VIEWS INDICATION: Productive cough cough, PNA 4wks ago COMPARISON: 01/25/19. FINDINGS: TUBES and LINES: None. LUNGS: Lungs are well inflated. Lungs are clear. There is no evidence of pneumonia or pulmonary edema. PLEURA: No pleural effusion or pneumothorax . HEART AND MEDIASTINUM: The cardiomediastinal silhouette is unremarkable. BONES AND SOFT TISSUES: No acute osseous lesion. Soft tissues are unremarkable. UPPER ABDOMEN: No free air under the diaphragm. IMPR ESSION: No acute thoracic abnormality. No change compared to 01/25/2019. Signed by: Dr. Little Young M.D. on 02/21/2019 2:07 AM Dictated By: XIOMARA YOUNG MD, MD 6 COPY TO: YESSENIA RITTER MD CHEST 2 [id number] 15:29:00 [place] [address] Patient Name: MELISSA PEREA MR #: [id number] : 1965 Age/Sex: 53/F Req #: [id number] Adm Physician: Ordered by: MODESTA MOSCOSO, CAROLE Hennessy MD Report #: [id number] Location: [facility] Room/Bed: Procedure: [id number] DX/CHEST 2 VIEWS Exam Date: 01/25/19 Exam Jose Carlos e: 1435 REPORT STATUS: Signed EXAMINATION: PA and lateral views of the chest. COMPARISON: None CLIN ICAL HISTORY: Pneumonia follow-up DISCUSSION: Lungs are well-inf lated. No focal consolidation, pleural effusion, or pneumothorax. Cardiomedias tinal contour and pulmonary vasculature are within normal limits. No acute oss eous abnormality. IMPRESSION: No acute cardiopulmonary abnormalities. No consolidative pneumonia. Signed by: Dr. Armando Joe M.D. on 01/25/2019 3:31 PM Dictated By: ARMANDO JOE MD 1531 Transcribed By: CECILIO on 01/25/19 1531 COPY TO: MODESTACAROLE - CT ABD PELVIS W/O [id number] 16:58:00 Name: MELISSA PEREA [facility] : 1965 Age/S: 53 / F [address] [facility]: [id number] Loc: [place] [address] Phys: KendallNikamago PARTIDA Acct: [id number] Dis Date: Status: REG ER PHONE #: [phone] Exam Date: 01/23/2019 1625 FAX #: [phone] Reason: abdominal pain EXAMS: CPT CODE: [id number] CT ABD PELVIS W/O CONT 56955 EXAM: CT of the abdomen and pelvis without contrast; INFORMATION: Abdominal pain and right lower back pain, urinary frequency; TECHNIQUE: CT dose reduction protocol; Renal stone protocol; FINDINGS: The kidneys are of normal size and shape; no calcifications and no hydronephrosis. No evidence of ureteral stones. No evidence of appendicitis or other acute bowel abnormalities. Parenchymal organs of the abdomen and the biliary system are unremarkable. Mild calcified plaques in the distal abdominal aorta and the common iliac arteries. No pelvic mass lesions; no abnormal fluid collections. Scans through the lung bases show mild patchy densities in the right middle lobe. IMPRESSION: 1. No evidence of renal or ureteral stones or of obstructive uropathy. 2. No evidence of acute abdominal or pelvic abnormalities. 3. Small infiltrates in the right middle lobe. at 1658 Reported and signed by: Bobby Barnes M.D. CC: VIV PALENCIA MD Technologist:Di Encarnacion RT(R),CT CTDI: DLP: Trnscb Date/Time: 01/23/2019 (1657) Yarely Orig Print D/T: S: 01/23/2019 (170) CTDI: DLP: PAGE 1 Signed Report UR HCG [id number] 16:06:00* Test Item Value Reference Range Interpretation Comments UR HCG QUAL (test code = HCGQLU) NEGATIVE This HCGQL test is NOT applicable for MALE patients.Check with nurse about probable order error.If Tumor Marker Test needed, nurse should order test "HCGTU"(Test #[id number]) URINALYSIS [id number] 15:20:00* Test Item Value Reference Range Interpretation Comments UA COLOR (test code = COLU) COLORLESS YELLOW A UA APPEARANCE (test code = APPU) CLEAR CLEAR UA GLUCOSE DIPSTICK (test code = DGLUU) NEGATIVE mg/dL NEGATIVE UA BILIRUBIN DIPSTICK (test code = BILU) NEGATIVE mg/dL NEGATIVE UA KETONE DIPSTICK (test code = KETU) NEGATIVE mg/dL NEGATIVE UA SPECIFIC GRAVITY (test code = SGU) 1.004 1.001-1.035 UA BLOOD DIPSTICK (test code = JON) 1+ (Small) mg/dL NEGATIVE A UA PH DIPSTICK (test code = KAYLEE) 5.0 5.0-8.0 UA PROTEIN DIPSTICK (test code = PROU) NEGATIVE mg/dL NEGATIVE UA UROBILINIOGEN DIPSTICK (test code = URO) NEGATIVE mg/dL NEGATIVE UA NITRITE DIPSTICK (test code = JUD) NEGATIVE NEGATIVE UA LEUKOCYTE ESTERASE W REFLEX (test code = LEUUR) NEGATIVE Daniel/uL NEGATIVE UA WBC (test code = WBCU) 0-5 per HPF 0-5 UA RBC (test code = RBCU) 0-2 #/HPF 0-5 UA EPITHELIAL CELLS (test code = EPIU) FEW per HPF FEW UA BACTERIA (test code = BACU) NONE SEEN #/HPF NONE Urine Source? Clean CatchCOMPREHENSIVE METABOLIC [id number] 14:22:00* Test Item Value Reference Range Interpretation Comments SODIUM (test code = NA) 143 mmol/L 136-145 N POTASSIUM (test code = K) 3.8 mmol/L 3.5-5.1 N CHLORIDE (test code = CL) 107.0 mmol/L 98-107 N CARBON DIOXIDE (test code = CO2) 30.0 mmol/L 21-32 N ANION GAP (test code = GAP) 9.8 10-20 L GLUCOSE (test code = GLU) 123 mg/dL 74-106 H BLOOD UREA NITROGEN (test code = BUN) 19 mg/dL 7-18 H GLOMERULAR FILTRATION RATE (test code = GFR) > 60 mL/min >=60 Estimated GFR by using Modified MDRD formula.Chronic kidney disease is defined as either kidney damageor GFR <60 mL/min/1.73 m2 for >3 months. CREATININE (test code = CREAT) 0.80 mg/dL 0.55-1.02 N Note change in reference range due to change in reagent. BUN/CREATININE RATIO (test code = BUN/CREA) 23.8 10-20 H TOTAL PROTEIN (test code = PROT) 7.3 gram/dL 6.4-8.2 N ALBUMIN (test code = ALB) 3.9 g/dL 3.4-5.0 N GLOBULIN (test code = GLOB) 3.4 gram/dL 2.7-4.2 N ALBUMIN/GLOBULIN RATIO (test code = A/G) 1.2 0.75-1.50 N CALCIUM (test code = CA) 9.2 mg/dL 8.5-10.1 N BILIRUBIN TOTAL (test code = BILT) 0.50 mg/dL 0.0-1.0 N SGOT/AST (test code = AST) 19 IUnit/L 15-37 N SGPT/ALT (test code = ALT) 35 IUnit/L 12-78 N ALKALINE PHOSPHATASE TOTAL (test code = ALKP) 141 IUnit/L 45-117 H Note change in reference range due to change in reagent. CBC W/AUTO [id number] 13:52:00* Test Item Value Reference Range Interpretation Comments WHITE BLOOD CELL (test code = WBC) 7.8 K/mm3 4.5-12.5 N RED BLOOD CELL (test code = RBC) 4.68 mill/mm3 3.7-5.2 N HEMOGLOBIN (test code = HGB) 14.1 gram/dL 11.5-15.5 N HEMATOCRIT (test code = HCT) 45.3 % 36.0-46.0 N MEAN CELL VOLUME (test code = MCV) 96.8 fL 80-98 N MEAN CELL HGB (test code = MCH) 30.1 picogram 27.0-33.0 N MEAN CELL HGB CONCETRATION (test code = MCHC) 31.1 gram/dL 33.0-36. 0 L RED CELL DISTRIBUTION WIDTH (test code = RDW) 12.5 % 11.6-16. 2 N RED CELL DISTRIBUTION WIDTH SD (test code = RDW-SD) 44.0 fL 37 .0-51.0 N PLATELET COUNT (test code = PLT) 213 K/mm3 150-450 N MEAN PLATELET VOLUME (test code = MPV) 11.5 fL 6.7-11.0 H NEUTROPHIL % (test code = NT%) 73.2 % 39.0-69.0 H IMMATURE GRANULOCYTE % (test code = IG%) 0.3 % 0.0-5.0 N LYMPHOCYTE % (test code = LY%) 18.6 % 25.0-55.0 L MONOCYTE % (test code = MO%) 6.9 % 0.0-10.0 N EOSINOPHIL % (test code = EO%) 0.9 % 0.0-5.0 N BASOPHIL % (test code = BA%) 0.1 % 0.0-1.0 N NUCLEATED RBC % (test code = NRBC%) 0.0 % 0-0 N NEUTROPHIL # (test code = NT#) 5.72 K/mm3 1.8-7.7 N IMMATURE GRANULOCYTE # (test code = IG#) 0.02 x10 3/uL 0-0.03 N LYMPHOCYTE # (test code = LY#) 1.45 K/mm3 1.0-5.0 N MONOCYTE # (test code = MO#) 0.54 K/mm3 0-0.8 N EOSINOPHIL # (test code = EO#) 0.07 K/mm3 0.0-0.5 N BASOPHIL # (test code = BA#) 0.01 K/mm3 0.0-0.2 N NUCLEATED RBC # (test code = NRBC#) 0.00 K/mm3 0.0-0.1 N MANUAL DIFF REQUIRED (test code = MDIFF) NO CBC W/AUTO [id number] 13:51:00* Test Item Value Reference Range Interpretation Comments WHITE BLOOD CELL (test code = WBC) K/mm3 4.5-12.5 RED BLOOD CELL (test code = RBC) mill/mm3 3.7-5.2 HEMOGLOBIN (test code = HGB) 14.1 gram/dL 11.5-15.5 N HEMATOCRIT (test code = HCT) 45.3 % 36.0-46.0 N MEAN CELL VOLUME (test code = MCV) fL 80-98 MEAN CELL HGB (test code = MCH) picogram 27.0-33.0 MEAN CELL HGB CONCETRATION (test code = MCHC) gram/dL 33.0-36. 0 RED CELL DISTRIBUTION WIDTH (test code = RDW) % 11.6-16. 2 RED CELL DISTRIBUTION WIDTH SD (test code = RDW-SD) fL 37 .0-51.0 PLATELET COUNT (test code = PLT) K/mm3 150-450 MEAN PLATELET VOLUME (test code = MPV) fL 6.7-11.0 NEUTROPHIL % (test code = NT%) % 39.0-69.0 IMMATURE GRANULOCYTE % (test code = IG%) % 0.0-5.0 LYMPHOCYTE % (test code = LY%) % 25.0-55.0 MONOCYTE % (test code = MO%) % 0.0-10.0 EOSINOPHIL % (test code = EO%) % 0.0-5.0 BASOPHIL % (test code = BA%) % 0.0-1.0 NEUTROPHIL # (test code = NT#) K/mm3 1.8-7.7 LYMPHOCYTE # (test code = LY#) K/mm3 1.0-5.0 MONOCYTE # (test code = MO#) K/mm3 0-0.8 EOSINOPHIL # (test code = EO#) K/mm3 0.0-0.5 BASOPHIL # (test code = BA#) K/mm3 0.0-0.2 Sodium [id number] 11:28:00* Test Item Value Reference Range Interpretation Comments Sodium Level (test code = 2951-2) 141 136-145 [facility] SouthPotassium [id number] 11:28:00* Test Item Value Reference Range Interpretation Comments Potassium Level (test code = 2823-3) 3.8 3.5-5.1 [facility] SouthChloride [id number] 11:28:00* Test Item Value Reference Range Interpretation Comments Chloride Level (test code = 2075-0) 107 98-107 [facility] SouthCarbon Dioxide [id number] 11:28:00* Test Item Value Reference Range Interpretation Comments Carbon Dioxide Level (test code = 2028-9) 27 22-29 [facility] SouthAnion [id number] 11:28:00* Test Item Value Reference Range Interpretation Comments Anion Gap (test code = 36294-0) 10.8 8-16 [facility] SouthBlood Urea [id number] 11:28:00* Test Item Value Reference Range Interpretation Comments Blood Urea Nitrogen (test code = 3094-0) 18 7-26 [facility] SouthCreatinine2018-08-03 11:28:00* Test Item Value Reference Range Interpretation Comments Creatinine (test code = 2160-0) 0.77 0.57-1.11 [facility] SouthBUN/Creatinine [id number] 11:28:00* Test Item Value Reference Range Interpretation Comments BUN/Creatinine Ratio (test code = 3097-3) 23 6- [facility] SouthEstimat Glomerular Filtration Rate 2018-05-28 11:28:00* Test Item Value Reference Range Interpretation Comments Estimat Glomerular Filtration Rate (test code = 043146660) > 60 >60 Ranges were taken from the National Kidney Disease Education Program and the [facility] [employer] [employer] literature.Reference ranges:60 or greater: Rofwft03-15 ( for 3 consecutive months): Chronic kidney disease 15 or less: Kidney failureTexas [facility] SouthGlucose [id number] 11:28:00* Test Item Value Reference Range Interpretation Comments Glucose Level (test code = MAD6685) 101 74-118 [facility] SouthCalcium [id number] 11:28:00* Test Item Value Reference Range Interpretation Comments Calcium Level (test code = 11201-5) 9.5 8.4-10.2 [facility] SouthWhite Blood [id number] 10:55:00* Test Item Value Reference Range Interpretation Comments White Blood Count (test code = 6690-2) 7.43 4.8-10.8 [facility] SouthRed Blood [id number] 10:55:00* Test Item Value Reference Range Interpretation Comments Red Blood Count (test code = 789-8) 4.39 3.6-5.1 [facility] SouthHemoglobin2018-08-03 10:55:00* Test Item Value Reference Range Interpretation Comments Hemoglobin (test code = 98617-0) 14.0 12.0-16.0 [facility] SouthHematocrit2018-08-03 10:55:00* Test Item Value Reference Range Interpretation Comments Hematocrit (test code = 4544-3) 40.8 34.2-44.1 [facility] SouthMean Corpuscular Zfvqni5098-56-68 10:55:00* Test Item Value Reference Range Interpretation Comments Mean Corpuscular Volume (test code = 787-2) 92.9 81-99 [facility] SouthMean Corpuscular Tztjezdwvc4878-77-93 10:55:00* Test Item Value Reference Range Interpretation Comments Mean Corpuscular Hemoglobin (test code = 785-6) 31.9 28-32 [facility] SouthMean Corpuscular Hemoglobin Concent 2018-05-28 10:55:00* Test Item Value Reference Range Interpretation Comments Mean Corpuscular Hemoglobin Concent (test code = 786-4) 34.3 31-35 [facility] SouthRed Cell Distribution [id number] 10:55:00* Test Item Value Reference Range Interpretation Comments Red Cell Distribution Width (test code = 07948-1) 11.9 11.7 -14.4 [facility] SouthPlatelet Hivfp5853-75-18 10:55:00* Test Item Value Reference Range Interpretation Comments Platelet Count (test code = 777-3) 197 140-360 [facility] SouthNeutrophils (%) (Auto)2018-05-28 10:55:00 * Test Item Value Reference Range Interpretation Comments Neutrophils (%) (Auto) (test code = 07407-5) 70.2 38.7-80.0 [facility] SouthLymphocytes (%) (Auto)2018-05-28 10:55:00 * Test Item Value Reference Range Interpretation Comments Lymphocytes (%) (Auto) (test code = 736-9) 20.7 18.0-39.1 [facility] SouthMonocytes (%) (Auto)2018-05-28 10:55:00* Test Item Value Reference Range Interpretation Comments Monocytes (%) (Auto) (test code = 5905-5) 7.5 4.4-11.3 [facility] SouthEosinophils (%) (Auto)2018-05-28 10:55:00 * Test Item Value Reference Range Interpretation Comments Eosinophils (%) (Auto) (test code = 713-8) 1.2 0.0-6.0 [facility] SouthBasophils (%) (Auto)2018-05-28 10:55:00* Test Item Value Reference Range Interpretation Comments Basophils (%) (Auto) (test code = 706-2) 0.3 0.0-1.0 [facility] SouthIM GRANULOCYTES %2018-05-28 10:55:00* Test Item Value Reference Range Interpretation Comments IM GRANULOCYTES % (test code = IM GRANULOCYTES %) 0.1 0.0- 1.0 [facility] SouthNeutrophils # (Auto)2018-05-28 10:55:00* Test Item Value Reference Range Interpretation Comments Neutrophils # (Auto) (test code = 751-8) 5.2 2.1-6.9 [facility] SouthLymphocytes # (Auto)2018-05-28 10:55:00* Test Item Value Reference Range Interpretation Comments Lymphocytes # (Auto) (test code = 40344-4) 1.5 1.0-3.2 [facility] SouthMonocytes # (Auto)2018-05-28 10:55:00* Test Item Value Reference Range Interpretation Comments Monocytes # (Auto) (test code = 742-7) 0.6 0.2-0.8 [facility] SouthEosinophils # (Auto)2018-05-28 10:55:00* Test Item Value Reference Range Interpretation Comments Eosinophils # (Auto) (test code = 711-2) 0.1 0.0-0.4 [facility] SouthBasophils # (Auto)2018-05-28 10:55:00* Test Item Value Reference Range Interpretation Comments Basophils # (Auto) (test code = 704-7) 0.0 0.0-0.1 [facility] SouthAbsolute Immature Granulocyte (auto 2018-05-28 10:55:00* Test Item Value Reference Range Interpretation Comments Absolute Immature Granulocyte (auto (ron t code = Absolute Immature Granulocyte (auto) 0.01 0-0.1 [facility] SouthCHEST 2 [id number] 10:51:00 [facility] [address] [place] [address] Patient Name: MELISSA PEREA MR #: [id number] : 1965 Age/Sex: 53/F Req #: [id number] Adm Physician: Ordered by: KATHERINE PEREA MD Report #: [id number] Location: OR Room/Bed: Procedure: [id number] DX/CHEST 2 VIEWS Exam Date: 05/28/18 Exam Time: 1030 REPORT STATUS: Signed PROCEDURE: X-RAY CHEST, TWO VIEWS COMPARISON: None. INDICATIONS: P RE-OPERATIVE CHEST X-RAY FOR HERNIA SURGERY FINDINGS: The lungs ar e well-inflated. No focal airspace consolidation, pleural effusion, or pneumo thorax. Cardiomediastinal contour and pulmonary vasculature are within normal limits. No acute osseous abnormality. CONCLUSION: No acute thoracic abnormality. Dictated by: Armando Joe M.D. on 05/28/2018 at 10:51 Electronically approved by: Armando Joe M.D. on 05/28/2018 at 10:51 Dictated By: ARMANDO JOE MD 1051 Transcribed By: VEENA on 05/28/18 1051 COPY TO: KATHERINE VALLADARES MD
[2020-07-10 10:51] LABS: CLARITY,URINE CLEAR (CLEAR); COLOR,URINE YELLOW (YELLOW)
[2020-07-10 10:52] LABS: BILIRUBIN,URINE NEGATIVE (NEGATIVE); KETONES,URINE NEGATIVE (NEGATIVE); LEUKOCYTE ESTERASE ,URINE NEGATIVE (NEGATIVE); NITRITE,URINE NEGATIVE (NEGATIVE); PROTEIN,URINE DIPSTICK NEGATIVE (NEGATIVE); URINE UROBILINOGEN 0.2 mg/dL (0.2 - 1)
[2020-07-10 10:58] LABS: BASOPHILS % 0.2 % (0.0-1.0); EOSINOPHILS % 0.5 % (0.0-6.0); HEMATOCRIT 41.9 % (34.2-44.1); HEMOGLOBIN 13.7 g/dL (12.0-16.0); LYMPHOCYTES # (AUTO) 1.4 (1.0-3.2); LYMPHOCYTES % 15.8 % (18.0-39.1); MEAN CORPUSCULAR HEMOGLOBIN 30.4 pg (28-32); MEAN CORPUSCULAR HGB CONC 32.7 g/dL (31-35); MEAN CORPUSCULAR VOLUME 93.1 fL (81-99); MONOCYTES # (AUTO) 0.5 (0.2-0.8); MONOCYTES % 5.4 % (4.4-11.3); NEUTROPHILS # (AUTO) 6.7 (2.1-6.9); NEUTROPHILS % 77.9 % (38.7-80.0); PLATELET COUNT 230 x10e3/uL (140-360); RED CELL DISTRIBUTION WIDTH 12.3 % (11.7-14.4)
[2020-07-10 11:02] LABS: BACTERIA,URINE FEW /HPF; EPITHELIAL CELLS,URINE FEW /LPF; RBC,URINE 0-5 /HPF (0-5); WBC,URINE (MAN) 0-5 /HPF (0-5)
--- NOTE | 2020-07-10 11:06 | Emergency Department Note ---
History of Present Illnes History of Present Illness Chief Complaint: Genitourinary History of Present Illness This is a 55 year old female C/O 5 DAYS OF DYSURIA AND INCR FREQUENCY, LEFT LOWER BACK PAIN OFF/ON SINCE MARCH 2020. STATES SHE FINISHED COURSE OF MACROBID ABOUT 1 WEEK AGO. Historian: Patient Arrival Mode: Car Onset (how long ago): day(s) (5) Location: URINE Quality: FREQ, DYSURIA Radiation: Reports non-radiation Severity: moderate Onset quality: gradual Timing of current episode: constant Progression: unchanged Chronicity: chronic Context: Denies recent illness Relieving factors: none Exacerbating factors: none Associated symptoms: Reports denies other symptoms; Denies cough, Denies fever/chills, Denies shortness of breath Past Medical/Family History Physician Review I have reviewed the patient's past medical and family history. Any updates have been documented here. Past Medical History Recent Fever: No Clinical Suspicion of Infectio: No New/Unexplained Change in Ment: No Past Medical History: Kidney Stones, UTI's, Hyperlipedemia Other Medical History: PNA Past Surgical History: , Hernia Repair Social History Smoking Cessation: Never Smoker Counseling Performed: No Alcohol Use: None Any Illegal Drug Use: No TB Exposure/Symptoms: No Physically hurt or threatened: No Family History Family history of heart diseas: No Other Any Pre-Existing Lines (PICC,: No Review of Systems Review of Systems Constitutional: Reports no symptoms EENTM: Reports no symptoms Cardiovascular: Reports no symptoms Respiratory: Reports no symptoms Gastrointestinal: Reports no symptoms Genitourinary: Reports as per HPI, Reports pain (LEFT FLANK) Musculoskeletal: Reports no symptoms Integumentary: Reports no symptoms Neurological: Reports no symptoms Psychological: Reports no symptoms Endocrine: Reports no symptoms Hematological/Lymphatic: Reports no symptoms Physical Exam Related Data Allergies: Coded Allergies: Penicillins (Verified Allergy, Mild, 05/13/20) Sulfa (Sulfonamide Antibiotics) (Verified Allergy, Mild, 05/13/20) iodine (Verified Allergy, Mild, 05/13/20) hydrocodone (Verified Adverse Reaction, Mild, Anxiety, jitters, 05/13/20) Triage Vital Signs Vital Signs Date Time Temp Pulse Resp B/P (MAP) Pulse Ox O2 Delivery O2 Flow Rate FiO2 07/10/20 10:13 98.0 92 18 139/90 98 Room Air Vital signs reviewed: Yes Physical Exam CONSTITUTIONAL Constitutional: Present well-developed, Present well-nourished, Present obese HENT HENT: Present normocephalic, Present atraumatic, Present oropharynx clear/moist, Present nose normal HENT L/R: Present left ext ear normal, Present right ext ear normal EYES Eyes: Reports PERRL, Reports conjunctivae normal NECK Neck: Present ROM normal PULMONARY Pulmonary: Present effort normal, Present breath sounds normal CARDIOVASCULAR Cardiovascular: Present regular rhythm, Present heart sounds normal, Present capillary refill normal, Present normal rate GASTROINTESTINAL Abdominal: Present soft, Present nontender, Present bowel sounds normal, Present left CVA tenderness (MILD); Absent tender, Absent guarding, Absent mass, Absent rebound, Absent right CVA tenderness GENITOURINARY Genitourinary: Present exam deferred SKIN Skin: Present warm, Present dry MUSCULOSKELETAL Musculoskeletal: Present ROM normal NEUROLOGICAL Neurological: Present alert, Present oriented x 3, Present no gross motor or s ensory deficits PSYCHOLOGICAL Psychological: Present mood/affect normal, Present judgement normal Results Laboratory Laboratory Laboratory Tests Test 07/10/20 10:52 07/10/20 10:19 Urine Color Yellow (YELLOW) Urine Clarity Clear (CLEAR) Urine pH 5 (5 - 7) Urine Specific [place] <=1.005 (1.010-1.025) Urine Protein Negative (NEGATIVE) Urine Glucose (UA) Negative (NEGATIVE) Urine Ketones Negative (NEGATIVE) Urine Blood Trace (NEGATIVE) Urine Nitrite Negative (NEGATIVE) Urine Bilirubin Negative (NEGATIVE) Urine Urobilinogen 0.2 mg/dL (0.2 - 1) Urine Leukocyte Esterase Negative (NEGATIVE) Lab results reviewed: Yes Laboratory comments Laboratory Tests Test 07/10/20 10:52 07/10/20 10:19 White Blood Count 8.66 x10e3/uL (4.8-10.8) Red Blood Count 4.50 x10e6/uL (3.6-5.1) Hemoglobin 13.7 g/dL (12.0-16.0) Hematocrit 41.9 % (34.2-44.1) Mean Corpuscular Volume 93.1 fL (81-99) Mean Corpuscular Hemoglobin 30.4 pg (28-32) Mean Corpuscular Hemoglobin Concent 32.7 g/dL (31-35) Red Cell Distribution Width 12.3 % (11.7-14.4) Platelet Count 230 x10e3/uL (140-360) Neutrophils (%) (Auto) 77.9 % (38.7-80.0) Lymphocytes (%) (Auto) 15.8 % (18.0-39.1) Monocytes (%) (Auto) 5.4 % (4.4-11.3) Eosinophils (%) (Auto) 0.5 % (0.0-6.0) Basophils (%) (Auto) 0.2 % (0.0-1.0) Neutrophils # (Auto) 6.7 (2.1-6.9) Lymphocytes # (Auto) 1.4 (1.0-3.2) Monocytes # (Auto) 0.5 (0.2-0.8) Eosinophils # (Auto) 0.0 (0.0-0.4) Basophils # (Auto) 0.0 (0.0-0.1) Absolute Immature Granulocyte (auto 0.02 x10e3/uL (0-0.1) Sodium Level 143 mmol/L (136-145) Potassium Level 3.7 mmol/L (3.5-5.1) Chloride Level 108 mmol/L (98-107) Carbon Dioxide Level 24 mmol/L (22-29) Anion Gap 14.7 mmol/L (8-16) Blood Urea Nitrogen 20 mg/dL (7-26) Creatinine 0.83 mg/dL (0.57-1.11) Estimat Glomerular Filtration Rate > 60 ML/MIN (60-) BUN/Creatinine Ratio 24 (6-25) Glucose Level 132 mg/dL (74-118) Calcium Level 9.2 mg/dL (8.4-10.2) Total Bilirubin 0.4 mg/dL (0.2-1.2) Aspartate Amino Transf (AST/SGOT) 16 IU/L (5-34) Alanine Aminotransferase (ALT/SGPT) 23 IU/L (0-55) Alkaline Phosphatase 134 IU/L (40-150) Total Protein 7.1 g/dL (6.5-8.1) Albumin 4.4 g/dL (3.5-5.0) Globulin 2.7 g/dL (2.3-3.5) Albumin/Globulin Ratio 1.6 (0.8-2.0) Urine Color Yellow (YELLOW) Urine Clarity Clear (CLEAR) Urine pH 5 (5 - 7) Urine Specific [place] <=1.005 (1.010-1.025) Urine Protein Negative (NEGATIVE) Urine Glucose (UA) Negative (NEGATIVE) Urine Ketones Negative (NEGATIVE) Urine Blood Trace (NEGATIVE) Urine Nitrite Negative (NEGATIVE) Urine Bilirubin Negative (NEGATIVE) Urine Urobilinogen 0.2 mg/dL (0.2 - 1) Urine Leukocyte Esterase Negative (NEGATIVE) Urine RBC 0-5 /HPF (0-5) Urine WBC 0-5 /HPF (0-5) Urine Epithelial Cells Few /LPF (NONE) Urine Bacteria Few /HPF (NONE) Imaging Imaging results reviewed: Yes Assessment & Plan Medical Decision Making MDM UTI SX'S X 5 DAYS AND LEFT FLANK PAIN X > 1 MONTH, H/O KIDNEY STONE IN PAST - CHECK CBC, CHEM'S, UA/CX, CT ABD/PELVIS - R/O URETEROLITHIASIS, UTI, RENAL DYSFUNCTION, RENAL MASS Reassessment Reassessment IMPROVED WITH IVF'S & TORADOL, [facility], F/U PCP, NATHANIEL AGUILAR Assessment & Plan Final Impression: (1) Flank pain (2) Abdominal discomfort Depart Disposition: HOME, SELF-CARE Last Vital Signs Date Time Temp Pulse Resp B/P (MAP) Pulse Ox O2 Delivery O2 Flow Rate FiO2 07/10/20 10:13 98.0 92 18 139/90 98 Room Air Home Meds Reported Medications Diphenhydramine Hcl (BENADRYL) 25 Mg Capsule, 50 06/07/18 Turmeric (TURMERIC) 1 Gm Powder, PO DAILY 06/03/18 Fexofenadine Hcl (SOFIA ALLERGY) 180 Mg Tablet, 180 MG PO DAILY 06/03/18 Alprazolam (XANAX) 0.5 Mg Tablet, 0.5 MG PO TID 06/03/18 [Synthroid] No Conflict Check, 137 MCG PO DAILY 06/03/18 Lansoprazole (PREVACID) 15 Mg Tab.rap.dr, 15 MG PO TID 06/03/18 Medications in the ED Ondansetron HCl 4 mg ONCE STAT IV ; Start 07/10/20 at 10:19; Stop 07/10/20 at 10:28; Status DC Ketorolac Tromethamine 30 mg ONCE STAT IV ; Start 07/10/20 at 10:19; Stop 07/10/20 at 10:28; Status DC Sodium Chloride 1,000 ml @ 0 mls/hr Q0M STAT IV ; Start 07/10/20 at 10:19; Stop 07/10/20 at 10:22; Status DC MAC CORRIGAN MD Jul 10, 2020 11:06
--- NOTE | 2020-07-10 11:12 | Diagnostic Imaging Report ---
EXAM: CT Abdomen and Pelvis WITHOUT intravenous contrast INDICATION: ^Stone Protocol, LEFT FLANK PAIN ^[id number] ^1030 ^Y. COMPARISON: 12/01/2009 TECHNIQUE: Abdomen and pelvis were scanned utilizing a multidetector helical scanner from the lung base to the pubic symphysis without administration of IV contrast. Coronal and sagittal reformations were obtained. Routine technique was performed. IV CONTRAST: None ORAL CONTRAST: None COMPLICATIONS: None RADIATION DOSE: Total DLP: 390 mGy*cm Dose modulation, iterative reconstruction, and/or weight based adjustment of the mA/kV was utilized to reduce the radiation dose to as low as reasonably achievable. FINDINGS: LOWER THORAX: Normal. HEPATOBILIARY: No focal hepatic lesions. No biliary ductal dilatation. The gallbladder appears unremarkable. SPLEEN: No splenomegaly. PANCREAS: No focal masses or ductal dilatation. ADRENALS: No adrenal nodules. KIDNEYS/URETERS: No hydronephrosis, stones, or solid mass lesions. Ureters are not dilated. PELVIC ORGANS/BLADDER: Unremarkable. PERITONEUM / RETROPERITONEUM: No free air or fluid. LYMPH NODES: No lymphadenopathy. VESSELS: Unremarkable. GI TRACT: Limited due to lack of oral contrast. Stomach and portions of the colon are decompressed limiting evaluation. Normal appendix is noted. No surrounding inflammatory changes are identified. BONES AND SOFT TISSUES: No acute osseous abnormality. IMPRESSION: 1. Negative for acute abdominopelvic process. Specifically negative for nephrolithiasis, hydronephrosis or surrounding inflammatory changes. Signed by: Michael Terry MD on 07/10/2020 11:09 AM
[2020-07-10 11:20] LABS: ALANINE AMINOTRANSFERASE 23 IU/L (0-55); ALBUMIN 4.4 g/dL (3.5-5.0); ALBUMIN/GLOBULIN RATIO 1.6 (0.8-2.0); ALKALINE PHOSPHATASE 134 IU/L (40-150); ANION GAP 14.7 mmol/L (8-16); BLOOD UREA NITROGEN 20 mg/dL (7-26); BUN/CREATININE RATIO 24 (6-25); CALCIUM 9.2 mg/dL (8.4-10.2); CARBON DIOXIDE 24 mmol/L (22-29); CHLORIDE 108 mmol/L (98-107); CREATININE, SERUM 0.83 mg/dL (0.57-1.11); EST GLOMERULAR FILTRATION RATE > 60 ML/MIN (60-); GLUCOSE 132 mg/dL (74-118); POTASSIUM 3.7 mmol/L (3.5-5.1); SODIUM 143 mmol/L (136-145)
== END 2020-07-10 12:20 | disposition home or self-care (01) ==
LOC: ER 10:15
DX: R30.0 Dysuria (principal); M54.5 Low back pain; R10.9 Unspecified abdominal pain; E78.5 Hyperlipidemia, unspecified
CPT/HCPCS: 36415; 74176; 80053; 81001; 85025; 87086; 99284; J1885; J2405; J7030

== ENCOUNTER 2020-09-09 20:56 | Emergency (ER) | payer OTHER ==
[~2020-09-09] VITALS: Ht 157.5 cm; Wt 74.8 kg
--- NOTE | 2020-09-09 21:18 | NUR ---
DR RITTER DOES NOT WANT AN EKG ON PATIENT
[2020-09-09 21:40] LABS: BASOPHILS % 0.5 % (0.0-1.0); EOSINOPHILS # (AUTO) 0.1 (0.0-0.4); EOSINOPHILS % 0.8 % (0.0-6.0); HEMATOCRIT 41.9 % (34.2-44.1); HEMOGLOBIN 13.6 g/dL (12.0-16.0); LYMPHOCYTES # (AUTO) 2.1 (1.0-3.2); LYMPHOCYTES % 24.3 % (18.0-39.1); MEAN CORPUSCULAR HEMOGLOBIN 30.4 pg (28-32); MEAN CORPUSCULAR HGB CONC 32.5 g/dL (31-35); MEAN CORPUSCULAR VOLUME 93.5 fL (81-99); MONOCYTES # (AUTO) 0.5 (0.2-0.8); MONOCYTES % 5.9 % (4.4-11.3); NEUTROPHILS # (AUTO) 5.9 (2.1-6.9); NEUTROPHILS % 68.3 % (38.7-80.0); PLATELET COUNT 219 x10e3/uL (140-360); RED BLOOD COUNT 4.48 x10e6/uL (3.6-5.1); RED CELL DISTRIBUTION WIDTH 12.6 % (11.7-14.4)
[2020-09-09 21:52] LABS: INR 0.95; PROTHROMBIN TIME 13.2 seconds (11.9-14.5)
--- NOTE | 2020-09-09 21:52 | Emergency Department Note ---
History of Present Illnes History of Present Illness Chief Complaint: Abdominal Complaints History of Present Illness This is a 55 year old female PRESENTS WITH C/O PAIN TO UPPER ABD AND BRUISING TO UPPER ABD. PT DENIES INJURY PT DENIES N/V/D, DENIES URINARY SYMPTOMS . Historian: Patient Arrival Mode: Car Onset (how long ago): hour(s) (4) Location: UPPER ABD Quality: PAIN, BRUISING Radiation: Reports non-radiation Severity: moderate Onset quality: sudden Duration (how long): hour(s) (4) Timing of current episode: constant Progression: unchanged Chronicity: new Context: Denies recent illness, Denies recent surgery, Denies trauma/injury Relieving factors: none Exacerbating factors: none Associated symptoms: Reports denies other symptoms Past Medical/Family History Physician Review I have reviewed the patient's past medical and family history. Any updates have been documented here. Past Medical History Recent Fever: No Clinical Suspicion of Infectio: No New/Unexplained Change in Ment: No Past Medical History: Kidney Stones, UTI's, Hyperlipedemia Other Medical History: PNA Past Surgical History: , Hernia Repair Social History Smoking Cessation: Never Smoker Counseling Performed: No Alcohol Use: None Any Illegal Drug Use: No Review of Systems Review of Systems Constitutional: Reports no symptoms EENTM: Reports no symptoms Cardiovascular: Reports no symptoms Respiratory: Reports no symptoms Gastrointestinal: Reports as per HPI Genitourinary: Reports no symptoms Musculoskeletal: Reports no symptoms Integumentary: Reports no symptoms Neurological: Reports no symptoms Psychological: Reports no symptoms Endocrine: Reports no symptoms Hematological/Lymphatic: Reports no symptoms Physical Exam Related Data Allergies: Coded Allergies: Penicillins (Verified Allergy, Mild, 05/13/20) Sulfa (Sulfonamide Antibiotics) (Verified Allergy, Mild, 05/13/20) iodine (Verified Allergy, Mild, 05/13/20) hydrocodone (Verified Adverse Reaction, Mild, Anxiety, jitters, 05/13/20) Triage Vital Signs Vital Signs Date Time Temp Pulse Resp B/P (MAP) Pulse Ox O2 Delivery O2 Flow Rate FiO2 09/09/20 21:12 98.4 80 20 160/93 99 Room Air Vital signs reviewed: Yes Physical Exam CONSTITUTIONAL Constitutional: Present well-developed, Present well-nourished; Absent distressed HENT HENT: Present normocephalic, Present atraumatic, Present oropharynx clear/moist, Present nose normal HENT L/R: Present left ext ear normal, Present right ext ear normal EYES Eyes: Reports PERRL, Reports conjunctivae normal NECK Neck: Present ROM normal PULMONARY Pulmonary: Present effort normal, Present breath sounds normal CARDIOVASCULAR Cardiovascular: Present regular rhythm, Present heart sounds normal, Present capillary refill normal, Present normal rate GASTROINTESTINAL Abdominal: Present soft, Present bowel sounds normal, Present tender (MILD EPIGASTRIC AND RUQ) GENITOURINARY Genitourinary: Present exam deferred SKIN Skin: Present warm, Present dry, Present bruising (2X2 CM BRUISE TO RUQ ABD) MUSCULOSKELETAL Musculoskeletal: Present ROM normal NEUROLOGICAL Neurological: Present alert, Present oriented x 3, Present no gross motor or sensory deficits PSYCHOLOGICAL Psychological: Present mood/affect normal, Present judgement normal Results Laboratory Laboratory Laboratory Tests Test 09/09/20 21:19 White Blood Count 8.59 x10e3/uL (4.8-10.8) Red Blood Count 4.48 x10e6/uL (3.6-5.1) Hemoglobin 13.6 g/dL (12.0-16.0) Hematocrit 41.9 % (34.2-44.1) Mean Corpuscular Volume 93.5 fL (81-99) Mean Corpuscular Hemoglobin 30.4 pg (28-32) Mean Corpuscular Hemoglobin Concent 32.5 g/dL (31-35) Red Cell Distribution Width 12.6 % (11.7-14.4) Platelet Count 219 x10e3/uL (140-360) Neutrophils (%) (Auto) 68.3 % (38.7-80.0) Lymphocytes (%) (Auto) 24.3 % (18.0-39.1) Monocytes (%) (Auto) 5.9 % (4.4-11.3) Eosinophils (%) (Auto) 0.8 % (0.0-6.0) Basophils (%) (Auto) 0.5 % (0.0-1.0) Neutrophils # (Auto) 5.9 (2.1-6.9) Lymphocytes # (Auto) 2.1 (1.0-3.2) Monocytes # (Auto) 0.5 (0.2-0.8) Eosinophils # (Auto) 0.1 (0.0-0.4) Basophils # (Auto) 0.0 (0.0-0.1) Absolute Immature Granulocyte (auto 0.02 x10e3/uL (0-0.1) Prothrombin Time 13.2 seconds (11.9-14.5) Prothromb Time International Ratio 0.95 Activated Partial Thromboplast Time 29.0 seconds (23.8-35.5) Sodium Level 144 mmol/L (136-145) Potassium Level 3.3 mmol/L (3.5-5.1) Chloride Level 108 mmol/L (98-107) Carbon Dioxide Level 24 mmol/L (22-29) Anion Gap 15.3 mmol/L (8-16) Blood Urea Nitrogen 20 mg/dL (7-26) Creatinine 0.83 mg/dL (0.57-1.11) Estimat Glomerular Filtration Rate > 60 ML/MIN (60-) BUN/Creatinine Ratio 24 (6-25) Glucose Level 115 mg/dL (74-118) Calcium Level 9.7 mg/dL (8.4-10.2) Total Bilirubin 0.2 mg/dL (0.2-1.2) Aspartate Amino Transf (AST/SGOT) 15 IU/L (5-34) Alanine Aminotransferase (ALT/SGPT) 21 IU/L (0-55) Alkaline Phosphatase 94 IU/L (40-150) Total Protein 7.1 g/dL (6.5-8.1) Albumin 4.0 g/dL (3.5-5.0) Globulin 3.1 g/dL (2.3-3.5) Albumin/Globulin Ratio 1.3 (0.8-2.0) Laboratory Tests Test 09/09/20 21:19 Lab results reviewed: Yes Imaging Imaging results reviewed: Yes Impressions Procedure: [id number] CT/CT ABDOMEN/PELVIS WO Exam Date: 09/09/20 Exam Time: 2224 REPORT STATUS: Signed EXAM: CT Abdomen and Pelvis WITHOUT contrast INDICATION: ^ABD PAIN ^[id number] ^2224 ^Y COMPARISON: Abdominal CT 07/10/2020. TECHNIQUE: Abdomen and pelvis were scanned utilizing a multidetector helical scanner from the lung base to the pubic symphysis without administration of IV contrast. Absence of intravenous contrast decreases sensitivity for detection of focal lesions and vascular pathology. Coronal and sagittal reformations were obtained. Routine protocol was performed. IV CONTRAST: None ORAL CONTRAST: Readicat COMPLICATIONS: None RADIATION DOSE: Total DLP: 416 mGy*cm Estimated effective dose: (DLP x 0.015 x size factor) mSv CTDIvol has been reviewed. It is below the limits set by the Radiation Protocol Committee (RPC). Dose modulation, iterative reconstruction, and/or weight based adjustment of the mA/kV was utilized to reduce the radiation dose to as low as reasonably achievable. FINDINGS: LINES and TUBES: None. LOWER THORAX: Unremarkable HEPATOBILIARY: No focal hepatic lesions. No biliary ductal dilation. GALLBLADDER: No radio-opaque stones or sludge. No wall thickening. SPLEEN: No splenomegaly. PANCREAS: No focal masses or ductal dilatation. ADRENALS: No adrenal nodules KIDNEYS/URETERS: No hydronephrosis. No cystic or solid mass lesions. No stones. GI TRACT: No abnormal distention, wall thickening, or evidence of bowel obstruction. Appendix is normal. PELVIC ORGANS/BLADDER: Unremarkable. LYMPH NODES: No lymphadenopathy. VESSELS: Arterial calcifications. PERITONEUM / RETROPERITONEUM: No free air or fluid. BONES: Degenerative changes. SOFT TISSUES: Trace focal fat stranding in the right anterior lateral subcutaneous change adipose.. IMPRESSION: Trace edema in the right anterior lateral subcutaneous adipose, can be due to contusion. No acute CT abnormality within the abdominopelvic cavity. Signed by: Saúl Lincoln DO on 09/09/2020 11:15 PM Dictated By: SAÚL LINCOLN DO 14 Transcribed By: CECILIO on 09/09/202314 COPY TO: YESSENIA RITTER MD~ Assessment & Plan Medical Decision Making MDM PT WITH UPPER ABD PAIN WITH BRUISING PRESENT, DENIES INJURY CBC, CMP, PT/PTT, UA, CT ABD/PELVIS ORDERED TO EVAL FOR UTI, COAGULOPATHY, ABDOMINAL CONTUSION, ELEVATED LFT'S, GALLSTONES, LIVER MASS, ANEMIA, Assessment & Plan Final Impression: (1) Abdominal wall contusion Depart Disposition: HOME, SELF-CARE Last Vital Signs Date Time Temp Pulse Resp B/P (MAP) Pulse Ox O2 Delivery O2 Flow Rate FiO2 09/09/20 21:12 98.4 80 20 160/93 99 Room Air Home Meds Reported Medications Diphenhydramine Hcl (BENADRYL) 25 Mg Capsule, 50 06/07/18 Turmeric (TURMERIC) 1 Gm Powder, PO DAILY 06/03/18 Fexofenadine Hcl (SOFIA ALLERGY) 180 Mg Tablet, 180 MG PO DAILY 06/03/18 Alprazolam (XANAX) 0.5 Mg Tablet, 0.5 MG PO TID 06/03/18 [Synthroid] No Conflict Check, 137 MCG PO DAILY 06/03/18 Lansoprazole (PREVACID) 15 Mg Tab.rap.dr, 15 MG PO TID 06/03/18 YESSENIA RITTER MD Sep 09, 2020 21:52
[2020-09-09 22:02] LABS: ALANINE AMINOTRANSFERASE 21 IU/L (0-55); ALBUMIN/GLOBULIN RATIO 1.3 (0.8-2.0); ALKALINE PHOSPHATASE 94 IU/L (40-150); ANION GAP 15.3 mmol/L (8-16); BLOOD UREA NITROGEN 20 mg/dL (7-26); BUN/CREATININE RATIO 24 (6-25); CALCIUM 9.7 mg/dL (8.4-10.2); CARBON DIOXIDE 24 mmol/L (22-29); CHLORIDE 108 mmol/L (98-107); CREATININE, SERUM 0.83 mg/dL (0.57-1.11); EST GLOMERULAR FILTRATION RATE > 60 ML/MIN (60-); GLUCOSE 115 mg/dL (74-118); POTASSIUM 3.3 mmol/L (3.5-5.1); SODIUM 144 mmol/L (136-145)
--- NOTE | 2020-09-09 23:18 | Diagnostic Imaging Report ---
EXAM: CT Abdomen and Pelvis WITHOUT contrast INDICATION: ^ABD PAIN ^[id number] ^2225 ^Y COMPARISON: Abdominal CT 07/10/2020. TECHNIQUE: Abdomen and pelvis were scanned utilizing a multidetector helical scanner from the lung base to the pubic symphysis without administration of IV contrast. Absence of intravenous contrast decreases sensitivity for detection of focal lesions and vascular pathology. Coronal and sagittal reformations were obtained. Routine protocol was performed. IV CONTRAST: None ORAL CONTRAST: Readicat COMPLICATIONS: None RADIATION DOSE: Total DLP: 416 mGy*cm Estimated effective dose: (DLP x 0.015 x size factor) mSv CTDIvol has been reviewed. It is below the limits set by the Radiation Protocol Committee (RPC). Dose modulation, iterative reconstruction, and/or weight based adjustment of the mA/kV was utilized to reduce the radiation dose to as low as reasonably achievable. FINDINGS: LINES and TUBES: None. LOWER THORAX: Unremarkable HEPATOBILIARY: No focal hepatic lesions. No biliary ductal dilation. GALLBLADDER: No radio-opaque stones or sludge. No wall thickening. SPLEEN: No splenomegaly. PANCREAS: No focal masses or ductal dilatation. ADRENALS: No adrenal nodules KIDNEYS/URETERS: No hydronephrosis. No cystic or solid mass lesions. No stones. GI TRACT: No abnormal distention, wall thickening, or evidence of bowel obstruction. Appendix is normal. PELVIC ORGANS/BLADDER: Unremarkable. LYMPH NODES: No lymphadenopathy. VESSELS: Arterial calcifications. PERITONEUM / RETROPERITONEUM: No free air or fluid. BONES: Degenerative changes. SOFT TISSUES: Trace focal fat stranding in the right anterior lateral subcutaneous change adipose.. IMPRESSION: Trace edema in the right anterior lateral subcutaneous adipose, can be due to contusion. No acute CT abnormality within the abdominopelvic cavity. Signed by: Saúl Lincoln DO on 09/09/2020 11:15 PM
--- OUTSIDE RECORDS SUMMARY | 2020-09-09 23:38 | XMS REPORT | Continuity of Care Document ---
Author Author [facility] [employer] Address Unknown Phone Unavailable Care Team Providers Care Plsql Developer Name Role Phone [employer] Unavailable Un available Problems Problem [...] positive Act benny Diagnosis 0 11/12/2019 Wiliam Dawsno Medications Medication Details Route Status Patient Instructions [...] D (Ergocalciferol) 1 c apsule Orally Active 55342 UNIT Orally Hany Dawson Linda as directed Orally Active 60 MG Orally Once a day [place] Dawson Meloxicam 1 tablet Orally Active 15 MG Orally Once a day Hany Dawson Prevacid 1 capsule before a me al Orally Active 15 MG Orally Once a day [place] Dawson Synthroid 1 tablet on an empty stomach in the morning Orally Active 137 MCG Orally Once a day Ambjose martin Dawson Benadryl not defined NA Active once a day Fakoya Bishop Dawson Benadryl 2 capsule Orally Active 25 MG Orally once a day Surya Dawson Atorvastatin Calcium 1 tablet Orally Active [...]
--- OUTSIDE RECORDS SUMMARY | 2020-09-09 23:39 | XMS REPORT | Continuity of Care Document ---
Author Author [facility] t Organization [facility] Address [address] [place] [address] Phone Unavailable Care Team Providers Care Film Spooler Name Role Phone CAROLE BLUNT PCP Mike RITTER Attphys Unavailable Mago CORRIGAN Attphys Unavailable Blu ORLANDO Attphys Unavailable CAROLE BLUNT Attphys Unavailable Mike PEREA Attphys Unavailable Payers Payer Name Policy Type Policy Number Effective Date Expiration Date Clem Mathew Pos [id number] 2009 00:00:00 [facility] Problems Condition Name Condition Details Condition Category Status Onset Date Resolution Date Last Treatment Date Treating Clinician Comments Source Dysuria Problem Active [facility] Flank pain Problem Active [facility] Abdominal discomfort Problem Active [facility] Long-term use of high-risk medication Long-term use of high-risk medication Active Problem 02/03/2020 Wiliam Dawson Problem Active 2020-02-03 02:56:22 [facility] [place] Vitamin D deficiency, unspecified Vitamin D deficiency, unspecified Active Problem 02/03/2020 Wiliam Dawson Problem Active 2020-02-03 02:56:22 [facility] Rheumatoid arthritis with rheumatoid factor Rheumatoid arthritis with rheumatoid factor Active Diagnosis 02/03/2020 Wiliam Dawson Diagnosis Active 2020-02-03 02:56:22 [facility] Polyarthritis Poly arthritis Active Diagnosis 02/03/2020 Wiliam Dawson Diagnosis Active 2020-02-03 02:56:22 [facility] Rheumatoid factor positive Rhe umatoid factor positive Active Diagnosis 11/12/2019 Wiliam Dawson Diagnosis Active 2019-11-12 03:47:31 [facility] Allergies, Adverse Reactions, Alerts Allergy Name Allergy Type Status Severity Reaction(s) Onset Date Inacti ve Date Treating Clinician Comments Source Penicillin Allergy to substance Active Mild 2020-05-13 00:00:00 [facility] Sulfa (Sulfonamide Antibiotics) Allergy to substance Active Mild 2020-05-13 00:00:00 [facility] Iodine Allergy to substance Active Mild 2020-05-13 00:00:00 [facility] Hydrocodone Propensity to adverse reactions Active Mild radha Gill 2020-05-13 00:00:00 [facility] Iodinated Contrast Media DA Active MO 2020-03-26 00:00:00 [facility] Penicillins DA Active MO 2020-03-26 00:00:00 [facility] Sulfa (Sulfonamide Antibiotics) DA Active MO 2020-03-26 00 :00:00 [facility] Iodinated Contrast Media DA Active MO 2020-03-22 00:00:00 [facility] Penicillins DA Active MO 2020-03-22 00:00:00 [facility] Sulfa (Sulfonamide Antibiotics) DA Active MO 2020-03-22 00 :00:00 [facility] Iodine Iodine Active rash 2019-10-24 00:00:00 [facility] Daypro Daypro Active hypertension 2019-10-24 00:00:00 [facility] Iodinated Contrast Media DA Active MO 2019-05-16 00:00:00 [facility] Penicillins DA Active MO 2019-01-23 00:00:00 [facility] Sulfa (Sulfonamide Antibiotics) DA Active MO 2019-01-23 00 :00:00 [facility] Penicillins DA Active MO 2018-08-30 00:00:00 [facility] Sulfa (Sulfonamide Antibiotics) DA Active MO 2018-08-30 00 :00:00 [facility] Penicillins DA Active MO 2011-08-20 00:00:00 [facility] Sulfa (Sulfonamide Antibiotics) DA Active MO 2011-08-20 00 :00:00 [facility] Social History Social Habit Start Date Stop Date Quantity Comments Source Sex Assigned At 1965 00:00:00 1965 00:00:00 Female [facility] Medications Ordered Medication Name Filled Medication Name Start Date Stop Da te Current Medication? Ordering Clinician Indication Dosage Frequency Signature (SIG) Comments Components Source Tylenol 2020-02-03 02:56:22 Yes Ray London not defined [facility] Alprazolam 2020-02-03 02:56:22 Yes Ray London 1 tablet [facility] Linda 2020-02-03 02:56:22 Yes Ray London as d irected [facility] Prevacid 2020-02-03 02:56:22 Yes Ray London 1 capsule before a meal [facility] Synthroid 2020-02-03 02:56:22 Yes Ray London 1 tablet on an empty stomach in the morning [facility] Benadryl 2020-02-03 02:56:22 Yes Ray London 2 c apsule [facility] Atorvastatin Calcium 2020-02-03 02:56:22 Yes Ray London 1 tablet [facility] Tumeric 2020-02-03 02:56:22 Yes Ray London 1 ca psule [facility] Amlodipine Besylate 2020-02-03 02:56:22 Yes Ray London 1 tablet [facility] Alendronate Sodium 2019-11-14 00:00:00 Yes Ray London 1 tablet 30 minutes before the first food, beverage or medicine of the day with plain water [facility] Vitamin D (Ergocalciferol) 2019-11-12 03:47:31 Yes Seng Leach 1 capsule [facility] Meloxicam 2019-11-12 03:47:31 Yes Kandis Leach 1 [facility] Collagen 2019-11-12 03:47:31 Yes Kandis Leach 2 tablets [facility] Prednisone Taper 2019-09-27 00:00:00 Yes Kandis Leach 3 tablets for 5 days, 2 tablets for 5 days and then 1 tablet for 5 days [facility] Benadryl 2017-10-01 03:46:49 Yes Latifmago Faklynna no t defined [facility] Alprazolam (Xanax) 0.5 Mg TABLET Alprazolam (Xanax) 0.5 Mg TABLET Yes .5 Three Times A Day [facility] Diphenhydramine Hcl (Benadryl) 25 Mg CAPSULE Diphenhyd ramine Hcl (Benadryl) 25 Mg CAPSULE Yes 50 [facility] Fexofenadine Hcl (Linda Allergy) 180 Mg TABLET Fexof enadine Hcl (Linda Allergy) 180 Mg TABLET Yes 180 Daily [facility] Lansoprazole (Prevacid) 15 Mg TAB. Lansoprazole (Prevacid) 15 Mg TAB.RAP Yes 15 Three Times A Day [facility] Synthroid Synthroid Yes 137 Daily [facility] Turmeric Turmeric Yes Daily [facility] Vital Signs Vital Name Observation Time Observation Value Comments Source Weight 2020-07-10 10:13:00 165 [lb_av] [facility] BMI (Body Mass Index) 2020-07-10 10:13:00 30.2 kg/m2 [facility] Weight 2020-05-13 17:55:00 165 [lb_av] [facility] BMI (Body Mass Index) 2020-05-13 17:55:00 30.2 kg/m2 [facility] Weight 2019-10-24 19:15:00 [facility] Height 2019-10-24 19:15:00 [facility] Temperature Oral (F) 2019-10-24 19:15:00 99.6 F [facility] Heart Rate 2019-10-24 19:15:00 [facility] Diastolic (mm Hg) 2019-10-24 19:15:00 [facility] [place] Systolic (mm Hg) 2019-10-24 19:15:00 Fredy rial [place] Weight 2019-09-27 15:45:00 [facility] Height 2019-09-27 15:45:00 [facility] Temperature Oral (F) 2019-09-27 15:45:00 98.9 F [facility] [place] Heart Rate 2019-09-27 15:45:00 [facility] Diastolic (mm Hg) 2019-09-27 15:45:00 [facility] Systolic (mm Hg) 2019-09-27 15:45:00 Fredy [facility] Systolic (mm Hg) 2017-09-29 17:30:00 Fredy rial [facility] Weight 2017-09-29 17:30:00 [facility] Height 2017-09-29 17:30:00 [facility] Temperature Oral (F) 2017-09-29 17:30:00 98.8 F [facility] [place] Heart Rate 2017-09-29 17:30:00 [facility] Diastolic (mm Hg) 2017-09-29 17:30:00 [facility] [place] Procedures Procedure Date / Time Performed Performing Clinician [facility] e CT of abdomen and pelvis without contrast 2020-07-10 00:00:00 [facility] Plan of Care Planned Activity Planned Date Details Comments Source Instructions Abdominal Pain - Adult [facility] Instructions Back Pain [facility] Encounters Start Date/Time End Date/Time Encounter Type Admission Type Attendi [facility] Facility Care Department Encounter ID Source 2020-07-10 10:15:00 2020-07-10 12:20:00 Departed Emergency [facility] [id number] [facility] 2020-06-25 09:46:00 2020-06-25 09:46:00 Registered Clinic [facility] [id number] [facility] kes [facility] 2020-05-13 17:59:00 2020-05-13 19:43:00 Departed Emergency Room [facility] [id number] [facility] 2019-12-20 15:56:00 2019-12-20 15:56:00 Outpatient Champ Dawson MD [place] [id number] Wiliam Dawson MD 2019-11-14 12:31:00 2019-11-14 12:31:00 Outpatient MD HELGA Stanley MD [place] [id number] Wiliam Dawson MD 2019-10-25 08:06:00 2019-10-25 08:06:00 Outpatient MD HELGA Stanley MD [place] [id number] Wiliam Dawson MD 2019-10-24 14:15:00 2019-10-24 14:15:00 Outpatient Champ Dawson MD PA [id number] Wiliam Dawson MD 2019-09-27 10:57:00 2019-09-27 10:57:00 Outpatient MD HELGA Stanley MD [place] [id number] Wiliam Dawson MD 2019-09-27 09:45:00 2019-09-27 09:45:00 Outpatient Champ Dawson MD [place] [id number] Wiliam Dawson MD 2019-08-01 11:05:00 2019-08-01 11:05:00 Registered Clinic 3 JESÚS ORLANDO [facility] [id number] [facility] 2019-02-21 00:43:00 2019-02-21 02:40:00 Departed Emergency Room 1 YESSENIA RITTER [facility] [id number] [facility] 2019-01-25 14:16:00 2019-01-25 14:16:00 Registered Clinic 3 CAROLE BLUNT [facility] [id number] [facility] 2018-06-07 06:08:00 2018-06-07 06:08:00 Registered Surgical Day Car e 3 KATHERINE PEREA [facility] [id number] [facility] 2017-09-29 11:30:2017-09-29 11:30:00 Outpatient Champ PARTIDA [id number] Wiliam Dawson MD Results Test Description Test Time Test Comments Results Result Comments Source CT ABDOMEN/PELVIS WO 2020-09-09 23:09:00 [facility] : 1965 Sex: F [place] [address] Patient Name: MELISSA PEREA MR #: [id number] : 1965 Age/Sex: 55/F Req #: [id number] Adm Physician: Ordered by: YESSENIA RITTER MD Report #: [id number] Location: Room/Bed: Procedure: [id number] CT/CT ABDOMEN/PELVIS WO Exam Date: 09/09/20 Exam Time: 2224 REPORT STATUS: Signed EXAM: CT Abdomen and Pelvis WITHOUT contrast INDICATION: ABD PAIN 20200909 Y COMPARISON: Abdominal CT 07/10/2020. TECHNIQUE: Abdomen and pelvis were scanned utilizing a multidetector helical scanner from the lung base to the pubic symphysis without administration of IV contrast. Absence of intravenous contrast decreases sensitivity for detection of focal lesions and vascular pathology. Coronal and sagittal reformations were obtained. Routine protocol was performed. IV CONTRAST: None ORAL CONTRAST: Readicat COMPLICATIONS: None RADIATION DOSE: Total DLP: 416 mGy*cm Estimated effective dose: (DLP x 0.015 x size factor) mSv CTDIvol has been reviewed. It is below the limits set by the Radiation Protocol Committee (RPC). Dose modulation, iterative reconstruction, and/or weight based adjustment of the mA/kV was utilized to reduce the radiation dose to as low as reasonably achievable. FINDINGS: LINES and TUBES: None. LOWER THORAX: Unremarkable HEPATOBILIARY: No focal hepatic lesions. No biliary ductal dilation. GALLBLADDER: No radio-opaque stones or sludge. No wall thickening. SPLEEN: No splenomegaly. PANCREAS: No focal masses or ductal dilatation. ADRENALS: No adrenal nodules KIDNEYS/URETERS: No hydronephrosis. No cystic or solid mass lesions. No stones. GI TRACT: No abnormal distention, wall thickening, or evidence of bowel obstruction. Appendix is normal. PELVIC ORGANS/BLADDER: Unremarkable. LYMPH NODES: No lymphadenopathy. VESSELS: Arterial calcifications. PERITONEUM / RETROPERITONEUM: No free air or fluid. BONES: Degenerative changes. SOFT TISSUES: Trace focal fat stranding in the right anterior lateral subcutaneous change adipose.. IMPRESSION: Trace edema in the right anterior lateral subcutaneous adipose, can be due to contusion. No acute CT abnormality within the abdomin opelvic cavity. Signed by: Saúl Valencia DO on 09/09/2020 11:15 PM Dictated By: SAÚL VALENCIA DO 14 Transcribed By: CECILIO on 09/09/202314 COPY TO: YESSENIA RITTER MD CT ABDOMEN/PELVIS WO 2020-07-10 11:04:00 [place] [address] Patient Name: MELISSA PEREA MR #: [id number] : 1965 Age/Sex: 55/F Req #: [id number] Adm Physician: Ordered by: MAC CORRIGAN MD Report #: [id number] Location: ER Room/Bed: Procedure: [id number] CT/CT ABDOMEN/PELVIS WO Exam Date: 07/10/20 Exam Time: 1030 REPORT STATUS: Signed EXAM: CT Abdomen and Pelvis WITHOUT intravenous contrast INDICATION: Stone Protocol, LEFT FLANK PAIN 20200710 1030 Y. COMPARISON: 12/01/2009 TECHNIQUE: Abdomen and pelvis were scanned utilizing a multidetector helical scanner from the lung base to the pubic symphysis without administration of IV contrast. Coronal and sagittal reformations were obtained. Routine technique was performed. IV CONTRAST: None ORAL CONTRAST: None COMPLICATIONS: None RADIATION DOSE: Total DLP: 390 mGy*cm Dose modulation, iterative reconstruction, and/or weight based adjustment of the mA/kV was utilized to r educe the radiation dose to as low as reasonably achievable. FINDINGS: LOWER THORAX: Normal. HEPATOBILIARY: No focal hepatic lesions. No biliary ductal dilatation. The gallbladder appears unremarkable. SPLEEN: No splenomegaly. PANCREAS: No focal masses or ductal dilatation. ADRENALS: No adrenal nodules. KIDNEYS/URETERS: No hydronephrosis, stones, or solid mass lesions. Ureters are not dilated. PELVIC ORGANS/BLADDER: Unremarkable. PERITONEUM / RETROPERITONEUM: No free air or fluid. LYMPH NODES: No lymphadenopathy. VESSELS: Unremarkable. GI TRACT: Limited due to lack of oral contrast. Stomach and portions of the colon are decompressed limiting evaluation. Normal appendix is noted. No surrounding inflammatory changes are identified. BONES AND SOFT TISSUES: No acute osseous abnormality. IMPRESSION: 1. Negative for acute abdominopelvic process. Specifically negative for nephrolithiasis, hydronephrosis or surrounding inflammatory changes. Signed by: Mary Terry MD on 07/10/2020 11:09 AM Dictated By: MARY TERRY MD 08 Transcribed By: CECILIO on 07/10/201108 COPY TO: MAC CORRIGAN MD Blood leukocytes automated count (number/volume) 2020-07-10 10:52:00 Test Item White Blood Count (test code = 6690-2) 8.66 4.8-10.8 [facility] automated count (number/volume)2020-07-10 10:52:00* Test Item Value Reference Range Interpretation Comments Red Blood Count (test code = 789-8) 4.50 3.6-5.1 [facility] hemoglobin measurement (moles/volume)2020-07-10 10:52:00* Test Item Value Reference Range Interpretation Comments Hemoglobin (test code = 58308-0) 13.7 12.0-16.0 [facility] Campus[facility]ated blood hematocrit (volume fraction)2020-07-10 10:52:00* Test Item Value Reference Range Interpretation Comments Hematocrit (test code = 4544-3) 41.9 34.2-44.1 [facility] Campus[facility]ated erythrocyte mean corpuscular [id number] 10:52:00* Test Item Value Reference Range Interpretation Comments Mean Corpuscular Volume (test code = 787-2) 93.1 81-99 [facility] Campus[facility] erythrocyte mean corpuscular hemoglobin (mass per erythrocyte)2020-07-10 10:52:00* Test Item Value Reference Range Interpretation Comments Mean Corpuscular Hemoglobin (test code = 785-6) 30.4 28-32 [facility] CampusAutomated erythrocyte mean corpuscular hemoglobin concentration measurement (mass/volume)2020-07-10 10:52:00* Test Item Value Reference Range Interpretation Comments Mean Corpuscular Hemoglobin Concent (test code = 786-4) 32.7 31-35 [facility] CampusRDW [id number]-[id number] 10:52:00* Test Item Value Reference Range Interpretation Comments Red Cell Distribution Width (test code = 49417-9) 12.3 11.7 -14.4 [facility] Campus[facility]ated blood platelet count (count/volume)2020-07-10 10:52:00* Test Item Value Reference Range Interpretation Comments Platelet Count (test code = 777-3) 230 140-360 [facility] CampusAutom[facility] blood segmented neutrophil count as percentage of total fbuvohkdqb7507-09-98 10:52:00* Test Item Value Reference Range Interpretation Comments Neutrophils (%) (Auto) (test code = 97109-2) 77.9 38.7-80.0 [facility] CampusAutomated blood lymphocyte count as percentage ot total fzhrkxegpy1776-21-18 10:52:00* Test Item Value Reference Range Interpretation Comments Lymphocytes (%) (Auto) (test code = 736-9) 15.8 18.0-39.1 [facility] CampusAutomated blood monocyte count as percentage of total vkasetnptt4488-02-18 10:52:00* Test Item Value Reference Range Interpretation Comments Monocytes (%) (Auto) (test code = 5905-5) 5.4 4.4-11.3 [facility] CampusAutomated blood eosinophil count as percentage of total ievlhjuski8011-45-93 10:52:00* Test Item Value Reference Range Interpretation Comments Eosinophils (%) (Auto) (test code = 713-8) 0.5 0.0-6.0 [facility] Campus[facility]ated blood basophil count as percentage of total eipdpgxvch4867-77-37 10:52:00* Test Item Value Reference Range Interpretation Comments Basophils (%) (Auto) (test code = 706-2) 0.2 0.0-1.0 [facility] CampusFluoroscopic procedure less than one hour [id number] 10:52:00* Test Item Value Reference Range Interpretation Comments IM GRANULOCYTES % (test code = IM GRANULOCYTES %) 0.2 0.0- 1.0 [facility] CampusAutom[facility] blood neutrophil count 2020-07-10 10:52:00* Test Item Value Reference Range Interpretation Comments Neutrophils # (Auto) (test code = 751-8) 6.7 2.1-6.9 [facility] lymphocytes count (number/volume) 2020-07-10 10:52:00* Test Item Value Reference Range Interpretation Comments Lymphocytes # (Auto) (test code = 86163-6) 1.4 1.0-3.2 [facility] monocytes automated count (number/volume)2020-07-10 10:52:00* Test Item Value Reference Range Interpretation Comments Monocytes # (Auto) (test code = 742-7) 0.5 0.2-0.8 [facility] CampusAutomated blood eosinophil count 2020-07-10 10:52:00* Test Item Value Reference Range Interpretation Comments Eosinophils # (Auto) (test code = 711-2) 0.0 0.0-0.4 [facility] Campus[facility] blood basophil count (count/volume)2020-07-10 10:52:00* Test Item Value Reference Range Interpretation Comments Basophils # (Auto) (test code = 704-7) 0.0 0.0-0.1 [facility] CampusFluoroscopic procedure less than one hour [id number] 10:52:00* Test Item Value Reference Range Interpretation Comments Absolute Immature Granulocyte (auto (ron t code = Absolute Immature Granulocyte (auto) 0.02 0-0.1 [facility] sodium measurement (moles/volume)2020-07-10 10:52:00* Test Item Value Reference Range Interpretation Comments Sodium Level (test code = 2951-2) 143 136-145 [facility] or plasma potassium measurement (moles/volume)2020-07-10 10:52:00* Test Item Value Reference Range Interpretation Comments Potassium Level (test code = 2823-3) 3.7 3.5-5.1 [facility] plasma chloride measurement (moles/volume)2020-07-10 10:52:00* Test Item Value Reference Range Interpretation Comments Chloride Level (test code = 2075-0) 108 98-107 [facility] or plasma carbon dioxide, total measurement (moles/volume)2020-07-10 10:52:00* Test Item Value Reference Range Interpretation Comments Carbon Dioxide Level (test code = 2028-9) 24 22-29 [facility] or plasma anion [id number] 10:52:00* Test Item Value Reference Range Interpretation Comments Anion Gap (test code = 29175-5) 14.7 8-16 [facility] or plasma urea nitrogen measurement (mass/volume)2020-07-10 10:52:00* Test Item Value Reference Range Interpretation Comments Blood Urea Nitrogen (test code = 3094-0) 20 7-26 [facility] or plasma creatinine measurement (mass/volume)2020-07-10 10:52:00* Test Item Value Reference Range Interpretation Comments Creatinine (test code = 2160-0) 0.83 0.57-1.11 [facility] or plasma urea nitrogen/creatinine mass [id number] 10:52:00* Test Item Value Reference Range Interpretation Comments BUN/Creatinine Ratio (test code = 3097-3) 24 6-25 [facility] CampusEstimated glomerular filtration rate (GFR) fcoptymhqoytv9846-97-86 10:52:00* Test Item Value Reference Range Interpretation Comments Estimat Glomerular Filtration Rate (test code = 364375004) > 60 >60 Ranges were taken from the National Kidney Disease Education Program and the [facility] [employer] literature.Reference ranges:60 or greater: Jjqgqh52-68 ( for 3 consecutive months): Chronic kidney disease 15 or less: Kidney failureThe Hospitals of Providence [facility] CampusGlucose kihubwijqai8111-76-57 10:52:00* Test Item Value Reference Range Interpretation Comments Glucose Level (test code = XRT4570) 132 74-118 [facility]ererum or plasma calcium measurement (mass/volume)2020-07-10 10:52:00* Test Item Value Reference Range Interpretation Comments Calcium Level (test code = 82212-5) 9.2 8.4-10.2 [facility]ere[facility] or plasma total bilirubin measurement (mass/volume)2020-07-10 10:52:00* Test Item Value Reference Range Interpretation Comments Total Bilirubin (test code = 1975-2) 0.4 0.2-1.2 [facility] CampusFluoroscopic procedure less than one hour eufezmyx9752-60-45 10:52:00* Test Item Value Reference Range Interpretation Comments Aspartate Amino Transf (AST/SGOT) (test code = Aspartate Amino Transf (AST/SGOT)) 16 5-34 [facility] Centererum or plasma alanine aminotransferase measurement (enzymatic activity/volume)2020-07-10 10:52:00* Test Item Value Reference Range Interpretation Comments Alanine Aminotransferase (ALT/SGPT) (test code = 1742-6) 23 0-55 [facility] or plasma protein measurement (mass/volume)2020-07-10 10:52:00* Test Item Value Reference Range Interpretation Comments Total Protein (test code = 2885-2) 7.1 6.5-8.1 [facility] or plasma albumin measurement (mass/volume)2020-07-10 10:52:00* Test Item Value Reference Range Interpretation Comments Albumin (test code = 1751-7) 4.4 3.5-5.0 [facility] CampusPlasma globulin measurement (mass/volume) 2020-07-10 10:52:00* Test Item Value Reference Range Interpretation Comments Globulin (test code = 59909-8) 2.7 2.3-3.5 [facility] or plasma albumin/globulin mass jjzrk2858-92-75 10:52:00* Test Item Value Reference Range Interpretation Comments Albumin/Globulin Ratio (test code = 1759-0) 1.6 0.8-2.0 [facility]ererum or plasma alkaline phosphatase measurement (enzymatic activity/volume)2020-07-10 10:52:00* Test Item Value Reference Range Interpretation Comments Alkaline Phosphatase (test code = 6768-6) 134 40-150 [facility] color jspknwqnfmnnk7945-42-52 10:19:00* Test Item Value Reference Range Interpretation Comments Urine Color (test code = 5778-6) YELLOW YELLOW [facility]Urine jpgawrz0228-60-16 10:19:00* Test Item Value Reference Range Interpretation Comments Urine Clarity (test code = 80323-9) CLEAR CLEAR [facility] Centerpecific gravity of Urine by Test strip 2020-07-10 10:19:00* Test Item Value Reference Range Interpretation Comments Urine Specific [place] (test code = 5811-5) <=1.005 1.010-1.02 5 [facility] pH measurement by automated test hgacg1015-47-43 10:19:00* Test Item Value Reference Range Interpretation Comments Urine pH (test code = 71617-5) 5 5-7 [facility]Urine leukocyte esterase detection by mylmkaez3307-39-63 10:19:00* Test Item Value Reference Range Interpretation Comments Urine Leukocyte Esterase (test code = 5799-2) NEGATIVE NEGATIVE [facility]Urine nitrite tdfyodmrn0093-64-78 10:19:00* Test Item Value Reference Range Interpretation Comments Urine Nitrite (test code = 98143-7) NEGATIVE NEGATIVE [facility] protein measurement by test strip (mass/volume)2020-07-10 10:19:00* Test Item Value Reference Range Interpretation Comments Urine Protein (test code = 5804-0) NEGATIVE NEGATIVE [facility] glucose wkepvhvzo8323-73-87 10:19:00* Test Item Value Reference Range Interpretation Comments Urine Glucose (UA) (test code = 2349-9) NEGATIVE NEGATIVE [facility] CampusUrine ketones detection by automated test muskh7520-61-34 10:19:00* Test Item Value Reference Range Interpretation Comments Urine Ketones (test code = 90203-5) NEGATIVE NEGATIVE [facility] CampusUrine urobilinogen measurement by test strip (mass/volume)2020-07-10 10:19:00* Test Item Value Reference Range Interpretation Comments Urine Urobilinogen (test code = 93507-8) 0.2 0.2-1 [facility] total bilirubin measurement (mass/volume)2020-07-10 10:19:00* Test Item Value Reference Range Interpretation Comments Urine Bilirubin (test code = 1978-6) NEGATIVE NEGATIVE [facility]Urine erythrocytes wmezxpckd2995-89-82 10:19:00* Test Item Value Reference Range Interpretation Comments Urine Blood (test code = 25819-6) TRACE NEGATIVE [facility] CampusAutomated urine sediment leukocyte count by microscopy (number/high power field)2020-07-10 10:19:00* Test Item Value Reference Range Interpretation Comments Urine WBC (test code = 5821-4) 0-5 0-5 [facility] CampusErythrocytes detection in urine sediment by light vlpaibsrfh6726-34-14 10:19:00* Test Item Value Reference Range Interpretation Comments Urine RBC (test code = 78618-9) 0-5 0-5 [facility] CampusBacteria detection in urine sediment by light ntydvaczbk4102-74-74 10:19:00* Test Item Value Reference Range Interpretation Comments Urine Bacteria (test code = 67828-2) FEW NONE [facility] CampusEpithelial cells detection in urine sediment by light dmsfpgmofn8428-67-60 10:19:00* Test Item Value Reference Range Interpretation Comments Urine Epithelial Cells (test code = 53513-3) FEW NONE [facility]- CTA CHEST FOR HJ6124-76-04 20:43:00 Name: MELISSA PEREA [facility] : 1965 Age/S: 55 / F [address] [facility] Unit #: [id number] Loc: [facility] [place] [address] Phys: Tyrell Peacock MD Acct: [id number] Di s Date: Status: ADM IN PHONE #: Exam Date: 06/15/20202008 FAX #: Reason: DVT in LUE, arm swelling EXAMS: CPT CODE: [id number] [place] [address] REASON FOR EXAM: DVT in L UE, arm swelling EXAM ORDER DATE: 06/15/2020 6:54 PM Ordering: Christiano Peacock MD Attending:John Villa MD Location: COMPARISON: PROCEDURE: - CTA CHEST FOR PE FINDINGS: CT images of the chest were obtained with IV contrast. Recon structed sagittal and coronal images of the chest were provided for interp retation. Dose modulation, iterative reconstruction, and/or weight based adjustment of the MA/KV was utilized to reduce the radiation dose to as lo w as reasonably achievable. Intravenous contrast: 100cc of Omnipa que 370. The heart size is within normal limits. No evidence of p ericardial effusion The thoracic aorta is unremarkable. No evidenc e of dissection or aneurysmal dilatation. No filling defect seen wit hin the main or lobar pulmonary arteries to suggest pulmonary embolus. No evidence of mediastinal or hilar adenopathy. The lungs are clear. No evidence of pleural effusion IMPRESSION: Suboptimal examinati on due to poor opacification of the pulmonary arteries shows no gross ev idence of DVT at 2042 Reported and signed by: Remi Kaye M.D. CC: Christiano Winslow MD; Carole Blunt MD Technologist:Adolph Hopper ez, RT(R)(CT); February CTDI: DLP: Trnscb Date/Time: 06/15/2020 (2042) t.SDR.VTL Orig Print D/T: S: 06/15/2020 (2045) PAGE 1 Signed Report URINALYSIS SMJCJXEP6083-02-11 16:09:00* Test Item Value Reference Range Interpretation Comments [...] MUCU) FEW #/LPF FEW Urine Source? Clean JkotbKGCKSASH-U6816-58-21 15:57:00* Test Item Value Reference Range Interpretation Comments TROPONIN-I (test code = TROPI) <0.015 ng/mL 0-0.045 N BASIC METABOLIC [id number] 15:57:00* Test Item Value Reference Range Interpretation [...] CA) 8.7 mg/dL 8.5-10.1 N HCG SERUM [id number] 15:57:00* Test Item Value Reference Range Interpretation [...] MIU/ML2-3 MONTHS AFTER CONCEPTION 10,000-100,000 MIU/ML PROTHROMBIN [id number] 15:51:00* Test Item Value Reference Range Interpretation [...] (2.5-3.5) IS PATIENT ON ANTICOAGULANTS? NTHROMBOPLASTIN TIME ZYMFRDN2057-86-07 15:51:00* Test Item Value Reference Range Interpretation Comments THROMBOPLASTIN TIME PARTIAL (test code = PTT) 29.5 seconds 23.0-37. 0 N IS PATIENT ON ANTICOAGULANTS? NBASIC METABOLIC [id number] 15:47:00* Test Item Value Reference Range Interpretation [...] code = CA) mg/dL 8.5-10.1 HCG SERUM FBNL6414-14-15 15:47:00* Test Item Value Reference Range Interpretation Comments HCG SERUM BETA (test code = HCG) mIU/mL 0-3 CBC W/AUTO [id number] 15:40:00* Test Item Value Reference Range Interpretation [...] NRBC#) 0.00 K/mm3 0.0-0.1 N CBC W/AUTO [id number] 15:39:00* Test Item Value Reference Range Interpretation [...] BA#) K/mm3 0.0-0.2 - XR CHEST 1 [id number] 15:13:00 FAX: Christiano Peacock MD [phone] [place]: St: PRE FAX: Carole Haney MD [phone] Name: MELISSA PEREA [facility] : 1965 Age/S: 55/F [address] [facility] Unit #: [id number] Loc: [place] [address] Phys: Christiano Peacock MD Acct: [id number] Dis Date: Status: PRE ER PHONE #: [phone] Exam Date: 06/15/2020 1501 FAX #: [phone] Reason: cough EXAMS: CPT CODE: [id number] XR CHEST 1 V 70710 REASON FOR EXAM: cough Exam Order Date: 06/15/2020 2:44 PM Ordering M.D.: Christiano Peacock MD PROCEDURE: - XR CHEST [...] unchanged. IMPRESSION: No acute cardiopulmonary process. Location: [facility] Electro nically Signed by Armando Mello M.D. on 06/15/2020 at 1513 Reported and signed by: Armando Mello M.D. CC: Christiano Peacock MD; Carole Blunt MD Technologist: Elisha Aranda, RT(R); Effie color[place] RT(R) Trnscrd Date/Time/By: 06/15/2020 (1512) : By: [email or web address] PAGE 1 Signed Report - XR HUMERUS 2 + V [id number] 15:13:00 FAX: Christiano Peacock MD [phone] [place]: St: PRE FAX: Y Carole Blunt MD [phone] Name: MELISSA PEREA [facility] : 1965 Age/S: 55/F [address] [facility] Unit #: [id number] Loc: [place] [address] Phys: Christiano Peacock MD Acct: [id number] Dis Date: Status: PRE ER PHONE #: [phone] Exam Date: 06/15/2020 1501 FAX #: [phone] Reason: arm apin EXAMS: CPT CODE: [id number] XR HUMERUS 2 + [place] [address] REASON FOR EXAM: arm apin EXAM ORDER DATE: 06/15/2020 2:44 PM Ordering: Christiano Peacock MD Attending:Christiano Peacock MD Location:[facility] PROCEDURE: - XR HUMERUS 2 + V [...] Effie Negron RT(R) Trnscrd Date/Time /By: 06/15/2020 (4875) : By: [email or web address] Orig Print D/T: S: 06/15/2020 ( 1811) PAGE 1 Signed Report Urine color haquweggdyeno6806-68-65 17:59:00* Test Item Value Reference Range Interpretation Comments Urine Color (test code = 5778-6) YELLOW YELLOW [facility]Urine uowmaik8021-90-06 17:59:00* Test Item Value Reference Range Interpretation Comments Urine Clarity (test code = 64215-5) HAZY CLEAR [facility]pecific gravity of Urine by Test strip 2020-05-13 17:59:00* Test Item Value Reference Range Interpretation Comments Urine Specific [place] (test code = 5811-5) 1.015 1.010-1.02 5 [facility] pH measurement by automated test ngaxo9739-51-60 17:59:00* Test Item Value Reference Range Interpretation Comments Urine pH (test code = 85135-9) 5.5 5-7 [facility] CampusUrine leukocyte esterase detection by mvnwoyxg8821-69-96 17:59:00* Test Item Value Reference Range Interpretation Comments Urine Leukocyte Esterase (test code = 5799-2) NEGATIVE NEGATIVE [facility] CampusUrine nitrite cnakiuevv5961-53-59 17:59:00* Test Item Value Reference Range Interpretation Comments Urine Nitrite (test code = 89335-3) NEGATIVE NEGATIVE [facility] protein measurement by test strip (mass/volume)2020-05-13 17:59:00* Test Item Value Reference Range Interpretation Comments Urine Protein (test code = 5804-0) NEGATIVE NEGATIVE [facility] CampusUrine glucose jlkntocyi3593-12-44 17:59:00* Test Item Value Reference Range Interpretation Comments Urine Glucose (UA) (test code = 2349-9) NEGATIVE NEGATIVE [facility] CampusUrine ketones detection by automated test umoyi0250-16-35 17:59:00* Test Item Value Reference Range Interpretation Comments Urine Ketones (test code = 11455-5) NEGATIVE NEGATIVE [facility] CampusUrine urobilinogen measurement by test strip (mass/volume)2020-05-13 17:59:00* Test Item Value Reference Range Interpretation Comments Urine Urobilinogen (test code = 76223-2) 0.2 0.2-1 [facility] CampusU[facility] total bilirubin measurement (mass/volume)2020-05-13 17:59:00* Test Item Value Reference Range Interpretation Comments Urine Bilirubin (test code = 1978-6) NEGATIVE NEGATIVE [facility] CampusUrine erythrocytes aeywcbrdl4395-96-42 17:59:00* Test Item Value Reference Range Interpretation Comments Urine Blood (test code = 61678-7) SMALL NEGATIVE [facility] CampusAutomated urine sediment leukocyte count by microscopy (number/high power field)2020-05-13 17:59:00* Test Item Value Reference Range Interpretation Comments Urine WBC (test code = 5821-4) 0-5 0-5 [facility] CampusErythrocytes detection in urine sediment by light yidottmmta3985-13-91 17:59:00* Test Item Value Reference Range Interpretation Comments Urine RBC (test code = 72819-1) 0-5 0-5 [facility] CampusBacteria detection in urine sediment by light rcmgyopijy4666-91-81 17:59:00* Test Item Value Reference Range Interpretation Comments Urine Bacteria (test code = 91046-7) FEW NONE [facility] CampusEpithelial cells detection in urine sediment by light wpnedjzdml8190-13-91 17:59:00* Test Item Value Reference Range Interpretation Comments Urine Epithelial Cells (test code = 00111-7) FEW NONE [facility] CampusLACTIC VOFY7459-62-86 12:45:00* Test Item Value Reference Range Interpretation Comments LACTIC ACID (test code = LACT) 1.2 mmol/L 0.4-1.9 N BASIC METABOLIC WJONL9937-73-28 12:45:00* Test Item Value Reference Range Interpretation [...] CA) 9.1 mg/dL 8.5-10.1 N HEPATIC FUNCTION [id number] 12:45:00* Test Item Value Reference Range Interpretation [...] due to change in reagent. CBC W/AUTO [id number] 12:38:00* Test Item Value Reference Range Interpretation [...] NRBC#) 0.00 K/mm3 0.0-0.1 N BASIC METABOLIC AHMSK8301-94-06 12:38:00* Test Item Value Reference Range Interpretation [...] code = CA) mg/dL 8.5-10.1 HEPATIC FUNCTION XPNAT1970-35-91 12:38:00* Test Item Value Reference Range Interpretation [...] code = ALKP) IUnit/L 45-117 CBC W/AUTO FXHO4243-32-91 12:36:00* Test Item Value Reference Range Interpretation [...] (test code = BA#) K/mm3 0.0-0.2 URINALYSIS PMUHGEPP9909-34-13 11:50:00* Test Item Value Reference Range Interpretation [...] per HPF NONE Urine Source? Clean CatchURINALYSIS SWSZJTXF5804-82-55 11:29:00* Test Item Value Reference Range Interpretation [...] Source? 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 CC: Loc Giraldo NP; Gisele Deluna MD echnologist:Shanice Byers RT(R) CTDI: DLP: Trnscb Date /Time: 03/22/2020 (1953) tPRASADR.VTL Orig Print D/T: S: (1956) PAGE 1 Signed Report BASIC METABOLIC [id number] 19:24:00* Test Item Value Reference Range Interpretation [...] CA) 9.0 mg/dL 8.5-10.1 N HEPATIC FUNCTION [id number] 19:24:00* Test Item Value Reference Range Interpretation [...] reference range due to change in reagent. MECKJB3819-20-82 19:24:00* Test Item Value Reference Range Interpretation Comments LIPASE (test code = LIP) 89 U/L 73.0-393.0 N HCG SERUM [id number] 19:24:00* Test Item Value Reference Range Interpretation Comments HCG SERUM QUAL (test code = HCGQL) NEGATIVE NEGATIVE This HCGQL test is NOT applicable for MALE patients.Check with nurse about probable order error.If Tumor Marker Test needed, nurse should order test "HCGTU"(Test #550.00102) [id number]-[id number] 19:24:00* Test Item Value Reference Range Interpretation Comments TROPONIN-I (test code = TROPI) <0.015 ng/mL 0-0.045 N BASIC METABOLIC [id number] 19:13:00* Test Item Value Reference Range Interpretation [...] code = CA) mg/dL 8.5-10.1 HEPATIC FUNCTION [id number] 19:13:00* Test Item Value Reference Range Interpretation [...] TOTAL (test code = ALKP) IUnit/L 45-117 [id number] 19:13:00* Test Item Value Reference Range Interpretation Comments LIPASE (test code = LIP) U/L 73.0-393.0 HCG SERUM [id number] 19:13:00* Test Item Value Reference Range Interpretation Comments HCG SERUM QUAL (test code = HCGQL) NEGATIVE NEGATIVE This HCGQL test is NOT applicable for MALE patients.Check with nurse about probable order error.If Tumor Marker Test needed, nurse should order test "HCGTU"(Test #550.11247) [id number]-R0905-03-28 19:13:00* Test Item Value Reference Range Interpretation Comments TROPONIN-I (test code = TROPI) ng/mL 0-0.045 BASIC METABOLIC [id number] 19:12:00* Test Item Value Reference Range Interpretation [...] code = CA) mg/dL 8.5-10.1 HEPATIC FUNCTION [id number] 19:12:00* Test Item Value Reference Range Interpretation [...] TOTAL (test code = ALKP) IUnit/L 45-117 [id number] 19:12:00* Test Item Value Reference Range Interpretation Comments LIPASE (test code = LIP) U/L 73.0-393.0 HCG SERUM [id number] 19:12:00* Test Item Value Reference Range Interpretation Comments HCG SERUM QUAL (test code = HCGQL) NEGATIVE [id number]-[id number] 19:12:00* Test Item Value Reference Range Interpretation Comments TROPONIN-I (test code = TROPI) ng/mL 0-0.045 CBC W/O [id number] 19:01:00* Test Item Value Reference Range Interpretation [...] MPV) 11.1 fL 6.7-11.0 H CBC W/O [id number] 18:59:00* Test Item Value Reference Range Interpretation [...] (test code = MPV) fL 6.7-11.0 URINALYSIS [id number] 18:49:00* Test Item Value Reference Range Interpretation [...] #/HPF NONE A Urine Source? Clean CatchCTA [id number] 14:14:00 [place] [address] Patient Name: MELISSA PEREA MR #: [id number] : 1965 Age/Sex: 54/F Req #: [id number] [facility] Physician: Ordered by: JESÚS ORLANDO MD Report #: [id number] Location: CT Room/Bed: Procedure: [id number] CT/CTA CHEST Exam Date: 08/01/19 Exam Jose [...] 2:23 PM Dictated By: TYREE HOYT MD 22 Transcribed By: CECILIO on 08/01/191422 COPY TO: JESÚS ORLANDO MD Serum or plasma urea nitrogen measurement (mass/volume)2019-08-01 11:35:00* Test Item Value Reference Range Interpretation Comments Blood Urea Nitrogen (test code = 3094-0) 24 7-26 [facility] or plasma creatinine measurement (mass/volume)2019-08-01 11:35:00* Test Item Value Reference Range Interpretation Comments Creatinine (test code = 2160-0) 0.83 0.57-1.11 [facility] Centererum or plasma urea nitrogen/creatinine mass lyplh2134-09-73 11:35:00* Test Item Value Reference Range Interpretation Comments BUN/Creatinine Ratio (test code = 3097-3) 29 6-25 [facility] CampusEstimated glomerular filtration rate (GFR) zthauivmargva3009-12-84 11:35:00* Test Item Value Reference Range Interpretation Comments Estimat Glomerular Filtration Rate (test code = 896487175) > 60 >60 Ranges were taken from the National Kidney Disease Education Program and the [place] ional Kid[employer] Foundation literature.Reference ranges:60 or greater: Avcxgu66-08 ( for 3 consecutive months): Chronic kidney disease 15 or less: Kidney failureThe Hospitals of Providence Horizon City CampusB-TYPE NATRIURETIC QRWPBHI4750-64-03 02:13:00 * Test Item Value Reference Range Interpretation Comments B-TYPE NATRIURETIC PEPTIDE (test code = BNP) 6.4 pgram/mL 0-100 N CBC W/O [id number] 01:00:00* Test Item Value Reference Range Interpretation [...] code = MPV) fL 6.7-11.0 CBC W/O [id number] 01:00:00* Test Item Value Reference Range Interpretation [...] MPV) 12.1 fL 6.7-11.0 H BASIC METABOLIC [id number] 00:58:00* Test Item Value Reference Range Interpretation [...] code = CA) 9.5 mg/dL 8.5-10.1 N [id number]-[id number] 00:58:00* Test Item Value Reference Range Interpretation Comments TROPONIN-I (test code = TROPI) <0.015 ng/mL 0-0.045 N BASIC METABOLIC [id number] 00:54:00* Test Item Value Reference Range Interpretation [...] CALCIUM (test code = CA) mg/dL 8.5-10.1 XYSPDLUJ-G2210-76-23 00:54:00* Test Item Value Reference Range Interpretation Comments TROPONIN-I (test code = TROPI) ng/mL 0-0.045 URINALYSIS GQDFTYER0542-72-13 00:50:00* Test Item Value Reference Range Interpretation [...] FEW #/LPF FEW Urine Source? Clean CatchURINALYSIS [id number] 00:49:00* Test Item Value Reference Range Interpretation [...] Urine Source? Clean Catch- XR CHEST 1 [id number] 00:37:00 FAX: Donal Albrecht [phone] [place]: St: REG Name: MELISSA STEPHENS [facility] : [birth year] Age/S: 54/F [address] [facility] Unit #: [id number] Loc: [place] [address] Phys: Donal Gibbs Acct: [id number] Dis Date: Status: REG ER PHONE #: [phone] Exam Date: 05/16/2019 0033 FAX #: [phone] Reason: Shortness of Breath EXAMS: CPT CODE: [id number] XR CHEST 1 V 60403 EXAM: - XR CHEST 1 V Location code:C3 HISTORY: Shortness of Breath COMP ARISON: 03/10/2018 FINDINGS: Single AP view of the est is provided. Heart size and vascularity are within normal limits. The lungs are clear of focal consolidation. No effusion, pneumothorax, or acute osseous abnormality. IMPRESSION: 1. N o radiographic evidence of acute cardiopulmonary process. Elodia ctronically Signed by Shell Peterson on 05/17/2019 at 0037 Reported and signed by: Luis Peterson M.D. CC: Donal Gibbs MD Technologist: Jessica Huitron Trnscrd Date/Time/By: 05/17/2019 (0037) : By: [email or web address] Orig Print D/T: S: 05/17/2019 (0041) PAGE 1 Signed Report CHEST 2 VIEWS 2019-02-21 02:05:00 [place] [address] Patient Name: MELISSA PEREA MR #: [id number] : 1965 Age/Sex: 53/F Req #: [id number] Adm Physician: Ordered by: YESSENIA RITTER MD Report #: [id number] Location: ER Room/Bed: Procedure: DX/CHEST 2 VIEWS [...] COPY TO: YESSENIA RITTER MD CHEST 2 [id number] 15:29:[address] [address] Patient Name: MELISSA PEREA MR #: [id number] : 1965 Age/Sex: 53/F Req #: [id number] Adm Physician: Ordered by: CAROLE BLUNT MD, MD Report #: [id number] Location: [facility] Room/Bed: Procedure: [id number] DX/CHEST 2 [...] 3:31 PM Dictated By: ARMANDO JOE MD 30 Transcribed By: CECILIO on 01/25/19 153 COPY TO: CAROLE BLUNT - CT ABD PELVIS W/O [id number] 16:58:00 Name: MELISSA PEREA [facility] : 1965 Age/S: 53 / F [address] [facility] #: [id number] [place]: [place] [address] Phys: Nika Argueta Acct: [id number] Dis Date: Status: REG ER PHONE #: [phone] Exam Date: 01/23/2019 1625 FAX #: [phone] Reason: abdominal pain EXAMS: CPT CODE: [id number] CT ABD PELVIS W/O CONT 98861 EXAM: CT of the abdomen and pelvis [...] RT(R),CT CTDI: DLP: Trnscb Date/Time: 01/23/2019 (1657) Shara.GRW Orig Print D/T: S: 01/23/2019 (5734) CTDI: DLP: PAGE 1 Signed Report UR HCG [id number] 16:06:00* Test Item Value Reference Range Interpretation Comments UR HCG QUAL (test code = HCGQLU) NEGATIVE This HCGQL test is NOT applicable for MALE patients.Check with nurse about probable order error.If Tumor Marker Test needed, nurse should order test "HCGTU"(Test #550.48324) URINALYSIS [id number] 15:20:00* Test Item Value Reference Range Interpretation [...] #/HPF NONE Urine Source? Clean CatchCOMPREHENSIVE METABOLIC [id number] 14:22:00* Test Item Value Reference Range Interpretation [...] due to change in reagent. CBC W/AUTO [id number] 13:52:00* Test Item Value Reference Range Interpretation [...] (test code = MDIFF) NO CBC W/AUTO [id number] 13:51:00* Test Item Value Reference Range Interpretation [...] (test code = BA#) K/mm3 0.0-0.2 Sodium Gioph3160-82-59 11:28:00* Test Item Value Reference Range Interpretation Comments Sodium Level (test code = 2951-2) 141 136-145 [facility] CampusPotassium Onihg3543-81-92 11:28:00* Test Item Value Reference Range Interpretation Comments Potassium Level (test code = 2823-3) 3.8 3.5-5.1 [facility] CampusChloride Ypttl4307-09-92 11:28:00* Test Item Value Reference Range Interpretation Comments Chloride Level (test code = 2075-0) 107 98-107 [facility] CampusCarbon Dioxide Bdkbq4689-14-63 11:28:00* Test Item Value Reference Range Interpretation Comments Carbon Dioxide Level (test code = 2028-9) 27 22-29 [facility] CampusAnion Fzs0026-69-48 11:28:00* Test Item Value Reference Range Interpretation Comments Anion Gap (test code = 34427-4) 10.8 8-16 [facility] CampusBlood Urea Jsdahriw6711-99-25 11:28:00* Test Item Value Reference Range Interpretation Comments Blood Urea Nitrogen (test code = 3094-0) 18 7-26 [facility] CampusCreatinine2018-08-03 11:28:00* Test Item Value Reference Range Interpretation Comments Creatinine (test code = 2160-0) 0.77 0.57-1.11 [facility] CampusBUN/Creatinine Tuchn8939-69-87 11:28:00* Test Item Value Reference Range Interpretation Comments BUN/Creatinine Ratio (test code = 3097-3) 23 6-25 [facility] CampusEstimat Glomerular Filtration Rate 2018-05-28 11:28:00* Test Item Value Reference Range Interpretation Comments Estimat Glomerular Filtration Rate (test code = 579440566) > 60 >60 Ranges were taken from the National Kidney Disease Education Program and the [facility] [employer] literature.Reference ranges:60 or greater: Xchanc58-71 ( for 3 consecutive months): Chronic kidney disease 15 or less: Kidney failureThe Hospitals of [facility] CampusGlucose Ebkna4550-43-45 11:28:00* Test Item Value Reference Range Interpretation Comments Glucose Level (test code = AKE5487) 101 74-118 [facility] CampusCalcium Nlfnf3445-56-51 11:28:00* Test Item Value Reference Range Interpretation Comments Calcium Level (test code = 76631-8) 9.5 8.4-10.2 [facility] CampusWhite Blood Haiql4916-00-92 10:55:00* Test Item Value Reference Range Interpretation Comments White Blood Count (test code = 6690-2) 7.43 4.8-10.8 [facility] CampusRed Blood Taavw9758-40-02 10:55:00* Test Item Value Reference Range Interpretation Comments Red Blood Count (test code = 789-8) 4.39 3.6-5.1 [facility] CampusHemoglobin2018-08-03 10:55:00* Test Item Value Reference Range Interpretation Comments Hemoglobin (test code = 58993-3) 14.0 12.0-16.0 [facility] CampusHematocrit2018-08-03 10:55:00* Test Item Value Reference Range Interpretation Comments Hematocrit (test code = 4544-3) 40.8 34.2-44.1 [facility] CampusMean Corpuscular Kgkoub2037-92-86 10:55:00* Test Item Value Reference Range Interpretation Comments Mean Corpuscular Volume (test code = 787-2) 92.9 81-99 [facility] CampusMean Corpuscular Ckecnfxsuu1512-04-18 10:55:00* Test Item Value Reference Range Interpretation Comments Mean Corpuscular Hemoglobin (test code = 785-6) 31.9 28-32 [facility] CampusMean Corpuscular Hemoglobin Concent 2018-05-28 10:55:00* Test Item Value Reference Range Interpretation Comments Mean Corpuscular Hemoglobin Concent (test code = 786-4) 34.3 31-35 [facility] CampusRed Cell Distribution Hvoof3554-65-89 10:55:00* Test Item Value Reference Range Interpretation Comments Red Cell Distribution Width (test code = 00059-0) 11.9 11.7 -14.4 [facility] CampusPlatelet Xzpio2285-41-80 10:55:00* Test Item Value Reference Range Interpretation Comments Platelet Count (test code = 777-3) 197 140-360 [facility] CampusNeutrophils (%) (Auto)2018-05-28 10:55:00 * Test Item Value Reference Range Interpretation Comments Neutrophils (%) (Auto) (test code = 75812-1) 70.2 38.7-80.0 [facility] CampusLymphocytes (%) (Auto)2018-05-28 10:55:00 * Test Item Value Reference Range Interpretation Comments Lymphocytes (%) (Auto) (test code = 736-9) 20.7 18.0-39.1 [facility] CampusMonocytes (%) (Auto)2018-05-28 10:55:00* Test Item Value Reference Range Interpretation Comments Monocytes (%) (Auto) (test code = 5905-5) 7.5 4.4-11.3 [facility] CampusEosinophils (%) (Auto)2018-05-28 10:55:00 * Test Item Value Reference Range Interpretation Comments Eosinophils (%) (Auto) (test code = 713-8) 1.2 0.0-6.0 [facility] CampusBasophils (%) (Auto)2018-05-28 10:55:00* Test Item Value Reference Range Interpretation Comments Basophils (%) (Auto) (test code = 706-2) 0.3 0.0-1.0 [facility] CampusIM GRANULOCYTES %2018-05-28 10:55:00* Test Item Value Reference Range Interpretation Comments IM GRANULOCYTES % (test code = IM GRANULOCYTES %) 0.1 0.0- 1.0 [facility] CampusNeutrophils # (Auto)2018-05-28 10:55:00* Test Item Value Reference Range Interpretation Comments Neutrophils # (Auto) (test code = 751-8) 5.2 2.1-6.9 [facility] CampusLymphocytes # (Auto)2018-05-28 10:55:00* Test Item Value Reference Range Interpretation Comments Lymphocytes # (Auto) (test code = 36394-6) 1.5 1.0-3.2 [facility] CampusMonocytes # (Auto)2018-05-28 10:55:00* Test Item Value Reference Range Interpretation Comments Monocytes # (Auto) (test code = 742-7) 0.6 0.2-0.8 [facility] CampusEosinophils # (Auto)2018-05-28 10:55:00* Test Item Value Reference Range Interpretation Comments Eosinophils # (Auto) (test code = 711-2) 0.1 0.0-0.4 [facility] CampusBasophils # (Auto)2018-05-28 10:55:00* Test Item Value Reference Range Interpretation Comments Basophils # (Auto) (test code = 704-7) 0.0 0.0-0.1 [facility] CampusAbsolute Immature Granulocyte (auto 2018-05-28 10:55:00* Test Item Value Reference Range Interpretation Comments Absolute Immature Granulocyte (auto (ron t code = Absolute Immature Granulocyte (auto) 0.01 0-0.1 [facility] TylerCH[facility] 2 [id number] 10:51:00 [facility] [address] [address] Patient Name: MELISSA PEREA MR #: [id number] : 1965 Age/Sex: 53/F Req #: [id number] Adm Physician: Ordered by: KATHERINE PEREA MD Report #: [id number] Location: OR Room/Bed: Procedure: [id number] DX/CHEST 2 VIEWS Exam Date: 05/28/18 Exam [...]
== END 2020-09-09 23:35 | disposition home or self-care (01) ==
LOC: ER 21:14
DX: S30.1XXA Contusion of abdominal wall, initial encounter (principal); E78.5 Hyperlipidemia, unspecified; Z87.442 Personal history of urinary calculi
CPT/HCPCS: 36415; 74176; 80053; 85025; 85610; 85730; 99283

== ENCOUNTER 2021-09-14 18:58 | Emergency (ER) | payer OTHER ==
[~2021-09-14] VITALS: Ht 157.5 cm; Wt 78.9 kg
[2021-09-14] MEDS ORDERED: IBUPROFEN 400 MG TAB PO ONE (19:30)
[2021-09-14] MEDS ORDERED: ACETAMINOPHEN 325 MG TAB PO ONE (19:30)
[2021-09-14] MEDS ORDERED: IBUPROFEN400 MG PO (20:38)
[2021-09-14] MEDS ORDERED: ACETAMINOPHEN 325 MG TAB ONE (20:39)
[2021-09-14] MEDS ORDERED: IBUPROFEN 400 MG TAB ONE (20:39)
[2021-09-14 21:00] VITALS: BP 174/83
== END 2021-09-14 21:00 | disposition home or self-care (01) ==
LOC: FSED 19:07
DX: M79.671 Pain in right foot (principal); S90.31XA Contusion of right foot, initial encounter; W20.8XXA Other cause of strike by thrown, projected or falling object, initial encounter; Y92.008 Other place in unspecified non-institutional (private) residence as the place of occurrence of the external cause; I10 Essential (primary) hypertension; E78.5 Hyperlipidemia, unspecified; E78.00 Pure hypercholesterolemia, unspecified
CPT/HCPCS: 99283

== ENCOUNTER 2022-05-29 21:30 | Emergency (ER) | payer OTHER ==
[~2022-05-29] VITALS: Ht 160 cm; Wt 71.2 kg
[~2022-05-29 21:30] MED LIST changes: +IBUPROFEN400 MG PO; +LEVOFLOXACIN500 MG PO; +LEVSIN-SL0.125 MG SL; +ONDANSETRON ODT4 MG PO
[2022-05-29 22:05] LABS: BASOPHILS % 0.4 % (0.0-1.0); EOSINOPHILS # (AUTO) 0.1 (0.0-0.4); EOSINOPHILS % 0.8 % (0.0-6.0); HEMATOCRIT 43.7 % (34.2-44.1); LYMPHOCYTES # (AUTO) 1.7 (1.0-3.2); LYMPHOCYTES % 19.8 % (18.0-39.1); MEAN CORPUSCULAR HEMOGLOBIN 31.3 pg (28-32); MEAN CORPUSCULAR VOLUME 97.5 fL (81-99); MONOCYTES # (AUTO) 0.6 (0.2-0.8); MONOCYTES % 6.6 % (4.4-11.3); NEUTROPHILS # (AUTO) 6.2 (2.1-6.9); NEUTROPHILS % 72.2 % (38.7-80.0); PLATELET COUNT 198 x10e3/uL (140-360); RED BLOOD COUNT 4.48 x10e6/uL (3.6-5.1); RED CELL DISTRIBUTION WIDTH 12.2 % (11.7-14.4)
[2022-05-29 22:07] LABS: CLARITY,URINE CLEAR (CLEAR); COLOR,URINE YELLOW (YELLOW); KETONES,URINE NEGATIVE (NEGATIVE); LEUKOCYTE ESTERASE ,URINE NEGATIVE (NEGATIVE); NITRITE,URINE NEGATIVE (NEGATIVE); PROTEIN,URINE DIPSTICK NEGATIVE (NEGATIVE); URINE UROBILINOGEN 0.2 mg/dL (0.2 - 1)
[2022-05-29 22:26] LABS: ALBUMIN 3.9 g/dL (3.5-5.0); ALBUMIN/GLOBULIN RATIO 1.1 (0.8-2.0); BACTERIA,URINE FEW /HPF; CALCIUM 9.7 mg/dL (8.4-10.2); CREATININE, SERUM 0.89 mg/dL (0.57-1.11); EPITHELIAL CELLS,URINE FEW /LPF; RBC,URINE 0-5 /HPF (0-5); WBC,URINE (MAN) 0-5 /HPF (0-5)
[2022-05-29] MEDS ORDERED: ONDANSETRON HCL INJ 2MG/ML 2ML 2 MG/ML VIAL IV STA (23:43)
[2022-05-29] MEDS ORDERED: Morphine 2mg Syringe 2 MG/ML SYR IV STA (23:43)
[2022-05-29] MEDS ORDERED: DICYCLOMINE HCL20 MG PO (23:52)
[2022-05-30] MEDS ORDERED: DICYCLOMINE HCL10 MG PO (00:52)
[2022-05-30 01:02] VITALS: BP 117/85
== END 2022-05-30 01:03 | disposition home or self-care (01) ==
LOC: ER 21:45
DX: R10.30 Lower abdominal pain, unspecified (principal); I10 Essential (primary) hypertension; E78.5 Hyperlipidemia, unspecified; E78.00 Pure hypercholesterolemia, unspecified; Z86.718 Personal history of other venous thrombosis and embolism; Z87.442 Personal history of urinary calculi
CPT/HCPCS: 36415; 74176; 80053; 81001; 83690; 85025; 99284; J2270; J2405

== ENCOUNTER 2023-03-20 09:05 | Emergency (ER) | payer OTHER ==
[~2023-03-20] VITALS: Ht 160 cm; Wt 71.2 kg
[~2023-03-20 09:05] MED LIST changes: +DICYCLOMINE HCL10 MG PO; +DICYCLOMINE HCL20 MG PO
[2023-03-20 09:51] VITALS: O2SAT 99
== END 2023-03-20 12:07 | disposition home or self-care (01) ==
LOC: ER 09:13
DX: M79.622 Pain in left upper arm (principal); Z86.718 Personal history of other venous thrombosis and embolism; D68.51 Activated protein C resistance; I10 Essential (primary) hypertension; E78.5 Hyperlipidemia, unspecified; Z87.442 Personal history of urinary calculi
CPT/HCPCS: 93971; 99283

== ENCOUNTER 2023-04-22 19:35 | Emergency (ER) | payer OTHER ==
[~2023-04-22] VITALS: Ht 160 cm; Wt 71.2 kg
[2023-04-22] MEDS ORDERED: TRAMADOL HCL 50 MG TAB PO STA (20:28)
[2023-04-22] MEDS ORDERED: ULTRAM 50MG50 MG PO (20:30)
[2023-04-22 20:31] VITALS: O2SAT 99
== END 2023-04-22 20:40 | disposition home or self-care (01) ==
LOC: ER 19:49
DX: M25.572 Pain in left ankle and joints of left foot (principal); S82.62XD Displaced fracture of lateral malleolus of left fibula, subsequent encounter for closed fracture with routine healing; I10 Essential (primary) hypertension; E78.5 Hyperlipidemia, unspecified; Z86.718 Personal history of other venous thrombosis and embolism
CPT/HCPCS: 99283

== ENCOUNTER 2024-02-15 16:15 | Emergency (ER) | payer OTHER ==
[~2024-02-15] VITALS: Ht 160 cm; Wt 73.5 kg
[~2024-02-15 16:15] MED LIST changes: +ULTRAM 50MG50 MG PO
[2024-02-15 18:00] VITALS: O2SAT 96
== END 2024-02-15 19:18 | disposition home or self-care (01) ==
LOC: ER 18:07
DX: M79.622 Pain in left upper arm (principal); M79.89 Other specified soft tissue disorders; D68.51 Activated protein C resistance; I10 Essential (primary) hypertension; E78.5 Hyperlipidemia, unspecified; Z87.442 Personal history of urinary calculi
CPT/HCPCS: 93971; 99283